=== PATIENT | female | born 1940 | race Caucasian/White ===

== ENCOUNTER → 2017-06-08 | Outpatient (CLI) | payer MEDICARE ==
--- NOTE | 2017-06-09 10:24 | MM ---
Reason for exam: screening (asymptomatic). Last mammogram was performed 16 years and 4 months ago. History: Patient is postmenopausal and is nulliparous. Family history of breast cancer in sister at age 83 and breast cancer in mother. Physical Findings: A clinical breast exam by your physician is recommended on an annual basis and results should be correlated with mammographic findings. MG 3D Screening Mammo W/Cad Bilateral XCCL view(s) were taken. Prior study comparison: February 01, 2001, bilateral screening mammogram. January 30, 2000, bilateral special view mammogram. January 14, 1999, left breast special view mammogram. Finding: There are typically benign dystrophic, round, linear calcifications. Previous mammotome biopsy in the left breast. There is no discrete abnormality. ASSESSMENT: Benign, BI-RAD 2 RECOMMENDATION: Routine screening mammogram of both breasts in 1 year.
== END ==
LOC: RADMAMWWP 13:22
PROVIDERS: ATTEND Surgery
DX: Z12.31 Encounter for screening mammogram for malignant neoplasm of breast (principal)
CPT/HCPCS: 77063; 77067

== ENCOUNTER → 2018-05-17 | Outpatient (CLI) | payer MEDICARE ==
--- NOTE | 2018-05-17 08:52 | US ---
EXAMINATION TYPE: US pelvic complete DATE OF EXAM: 05/17/2018 COMPARISON: NONE CLINICAL HISTORY: R10.31 RLQ ABD PAIN. Pain x 9 months. TECHNIQUE: Transabdominal (TA). Transabdominal sonographic images of the pelvis were acquired. Date of LMP: Postmenopausal EXAM MEASUREMENTS: Uterus: 5.6 x 2.6 x 2.1 cm Endometrial Stripe: difficult to visualize cm Right Ovary: Not visualized cm Left Ovary: Not visualized cm 1. Uterus: Anteverted wnl 2. Endometrium: wnl 3. Right Ovary: Obscured by overlying bowel gas 4. Left Ovary: Obscured by overlying bowel gas 5. Bilateral Adnexa: wnl 6. Posterior cul-de-sac: wnl No obvious pathology IMPRESSION: Unremarkable transabdominal sonographic appearance of the uterus however the endometrium is not clearly delineated. Ovaries are not visualized, possibly due to ovarian atrophy. If there is f urther clinical concern pelvic MRI could be performed.
--- NOTE | 2018-05-17 08:53 | US ---
EXAMINATION TYPE: US abdomen complete DATE OF EXAM: 05/17/2018 COMPARISON: NONE CLINICAL HISTORY: R10.31 RLQ ABD PAIN. EXAM MEASUREMENTS: Liver Length: 12.7 cm Gallbladder Wall: 0.2 cm CBD: 0.3 cm Spleen: 9.5 cm Right Kidney: 10.1 x 5.1 x 3.7 cm Left Kidney: 10.1 x 5.3 x 5.1 cm Pancreas: Partially Obscured by bowel gas Liver: Partially obscured by bowel gas. The visualized portions are homogeneous. Gallbladder: No cholelithiasis or biliary sludge Evidence for sonographic Bartlett's sign: no CBD: wnl Spleen: wnl Right Kidney: wnl Left Kidney: hypoechoic area medially = 2.0 x 1.8 x 1.3 . This is a well-defined posterior wall and may represent a renal sinus cyst. Upper IVC: wnl Abd Aorta: wnl Suboptimal visualization overall d/t large amounts of bowel gas. The liver is homogenous in its visualized portions. The intrahepatic portion of the IVC and proximal abdominal aorta are within normal limits. There is no evidence of cholelithiasis. Common bile duct is unremarkable. The visualized portions of the pancreas are homogenous. The spleen is unremarkabl e. Kidneys are symmetric and free of hydronephrosis. IMPRESSION: 1. No sonographic evidence of cholelithiasis or acute cholecystitis. 2. Probable left renal sinus cyst.
== END ==
LOC: RADUSWWP 07:33
PROVIDERS: ATTEND Internal Medicine
DX: R10.31 Right lower quadrant pain (principal)
CPT/HCPCS: 76700; 76856

== ENCOUNTER → 2018-09-09 | Outpatient (CLI) | payer MEDICARE ==
--- NOTE | 2018-09-09 12:30 | US ---
EXAMINATION TYPE: US kidneys/renal and bladder DATE OF EXAM: 09/09/2018 COMPARISON: US CLINICAL HISTORY: Rt Flank Pain. EXAM MEASUREMENTS: Right Kidney: 9.4 x 5.3 x 5.6 cm Left Kidney: 9.1 x 5.1 x 5.3 cm Right Kidney: No hydronephrosis or masses seen Left Kidney: No hydronephrosis or masses seen Bladder: wnl Bilateral Jets seen: No There is no evidence for hydronephrosis at this point in time. No nephrolithiasis is seen. No alannah s are identified. The urinary bladder is anechoic. Bilateral ureteral jets are seen. IMPRESSION: No distinct abnormality seen.
== END | disposition home or self-care (01) ==
LOC: RADUSWWP 11:47
PROVIDERS: ATTEND Internal Medicine
DX: R10.9 Unspecified abdominal pain (principal)
CPT/HCPCS: 76770

== ENCOUNTER → 2018-10-03 | Outpatient (CLI) | payer MEDICARE ==
--- NOTE | 2018-10-04 11:08 | MM ---
Reason for exam: screening (asymptomatic). Last mammogram was performed 1 year and 4 months ago. History: Patient is postmenopausal and is nulliparous. Family history of breast cancer in sister at age 83 and breast cancer in mother. Benign excisional biopsy of the left breast, 2012. Physical Findings: A clinical breast exam by your physician is recommended on an annual basis and results should be correlated with mammographic findings. MG 3D Screening Mammo W/Cad Bilateral CC and MLO view(s) were taken. XCCL view(s) were taken of the left breast. Prior study comparison: June 08, 2017, bilateral MG 3d screening mammo w/cad. May 14, 2016, mammogram. May 09, 2015, mammogram. The breast tissue is heterogeneously dense. This may lower the sensitivity of mammography. Previous mammotome biopsy in the left breast. Benign secretory and oil cyst calcifications. No significant changes when compared with prior studies. ASSESSMENT: Benign, BI-RAD 2 RECOMMENDATION: Routine screening mammogram of both breasts in 1 year. Manage on a clinical basis with regard to left breast shooting pains.
== END | disposition home or self-care (01) ==
LOC: RADMAMWWP 13:18
PROVIDERS: ATTEND Internal Medicine
DX: Z12.31 Encounter for screening mammogram for malignant neoplasm of breast (principal)
CPT/HCPCS: 77063; 77067

== ENCOUNTER → 2020-01-17 | Outpatient (CLI) | payer MEDICARE ==
--- NOTE | 2020-01-18 08:44 | MM ---
Reason for exam: screening (asymptomatic). Last mammogram was performed 1 year and 3 months ago. History: Patient is postmenopausal and is nulliparous. Family history of breast cancer in sister at age 83 and breast cancer in mother. Benign excisional biopsy of the left breast, 2012. Physical Findings: A clinical breast exam by your physician is recommended on an annual basis and results should be correlated with mammographic findings. MG 3D Screening Mammo W/Cad Bilateral CC and MLO view(s) were taken. Prior study comparison: October 03, 2018, bilateral MG 3d screening mammo w/cad. June 08, 2017, bilateral MG 3d screening mammo w/cad. The breast tissue is heterogeneously dense. This may lower the sensitivity of mammography. Benign appearing bilateral calcifications. Previous mammotome biopsy in the left breast. No significant changes when compared with prior studies. ASSESSMENT: Benign, BI-RAD 2 RECOMMENDATION: Routine screening mammogram of both breasts in 1 year.
== END | disposition home or self-care (01) ==
LOC: RADMAMWWP 10:56
PROVIDERS: ATTEND Internal Medicine
DX: Z12.31 Encounter for screening mammogram for malignant neoplasm of breast (principal)
CPT/HCPCS: 77063; 77067

== ENCOUNTER 2020-10-02 13:57 | Emergency (ER) | payer OTHER, MEDICARE ==
[2020-10-02 14:14] VITALS: TEMP 98
[2020-10-02 14:31] VITALS: PULSE 74; RESP 18
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
[2020-10-02 15:44] VITALS: BP 195/84
== END 2020-10-02 15:53 | disposition home or self-care (01) ==
LOC: EC 13:57
DX: M94.0 Chondrocostal junction syndrome [Tietze] (principal); V89.2XXA Person injured in unspecified motor-vehicle accident, traffic, initial encounter
CPT/HCPCS: 70450; 71250; 72125; 93005; 99284

== ENCOUNTER → 2021-01-14 | Outpatient (CLI) | payer MEDICARE ==
--- NOTE | 2021-01-14 10:16 | XR ---
EXAMINATION TYPE: XR chest 2V, XR ribs LT DATE OF EXAM: 01/14/2021 COMPARISON: NONE CT chest October 02, 2020 HISTORY: Left-sided chest pain particularly left lower rib pain TECHNIQUE: Frontal and lateral views of the chest are obtained. A frontal and oblique images left-si ded ribs. FINDINGS: There is no suspicious new focal air space opacity, pleural effusion, or pneumothorax seen . The cardiac silhouette size remains within normal limits. Underlying scoliosis is redemonstrated. Dedicated images of the left-sided ribs show no acute displaced fractures. Overlying soft tissue is u nremarkable. No suspicious focal expansile or destructive lesion identified. IMPRESSION: 1. No acute cardiopulmonary process. 2. No acute or subacute displaced left rib fracture.
== END | disposition home or self-care (01) ==
LOC: RADXRYALE 09:53
PROVIDERS: ATTEND Internal Medicine
DX: R05 Cough (principal); R07.81 Pleurodynia
CPT/HCPCS: 71046

== ENCOUNTER → 2021-01-17 | Outpatient (CLI) | payer MEDICARE ==
--- NOTE | 2021-01-21 08:07 | MM ---
Reason for exam: screening (asymptomatic). Last mammogram was performed 1 year ago. History: Patient is postmenopausal and is nulliparous. Family history of breast cancer in sister at age 83 and breast cancer in mother. Benign excisional biopsy of the left breast, 2012. Physical Findings: A clinical breast exam by your physician is recommended on an annual basis and results should be correlated with mammographic findings. MG 3D Screening Mammo W/Cad Bilateral CC and MLO view(s) were taken. XCCL view(s) were taken of the left breast. Prior study comparison: January 17, 2020, bilateral MG 3d screening mammo w/cad. October 03, 2018, bilateral MG 3d screening mammo w/cad. There are scattered fibroglandular densities. Previous mammotome biopsy in the left breast. Benign secretory and oil cyst calcifications. No significant changes when compared with prior studies. ASSESSMENT: Benign, BI-RAD 2 RECOMMENDATION: Routine screening mammogram of both breasts in 1 year.
== END | disposition home or self-care (01) ==
LOC: RADMAMWWP 15:39
PROVIDERS: ATTEND Internal Medicine
DX: Z12.31 Encounter for screening mammogram for malignant neoplasm of breast (principal); Z80.3 Family history of malignant neoplasm of breast
CPT/HCPCS: 77063; 77067

== ENCOUNTER 2021-05-09 14:24 | Emergency (ER) | payer MEDICARE ==
[2021-05-09 15:27] LABS: Anisocytosis Slight; Basophils % (A) 0 %; Eosinophils # (A) 0.1 k/uL (0-0.7); Eosinophils % (A) 1 %; HCT 39.4 % (34.0-46.0); HGB 13.5 gm/dL (11.4-16.0); Lymphocytes # (A) 0.9 k/uL (1.0-4.8); Lymphocytes % (A) 14 %; MCH 29.5 pg (25.0-35.0); MCHC 34.3 g/dL (31.0-37.0); Mean Platelet Volume 6.9; Monocytes # (A) 0.5 k/uL (0-1.0); Monocytes % (A) 8 %; Neutrophils # (A) 4.8 k/uL (1.3-7.7); Neutrophils % (A) 74 %; Platelet Count 330 k/uL (150-450); Poikilocytosis Slight; RBC 4.58 m/uL (3.80-5.40); RDW 16.3 % (11.5-15.5); WBC 6.4 k/uL (3.8-10.6)
[2021-05-09 15:38] LABS: INR 1.1 (<1.2); Prothrombin Time 11.1 sec (9.0-12.0)
[2021-05-09 15:39] LABS: ALT 37 U/L (4-34); AST 46 U/L (14-36); African American GFR (CKD) >90 (>60 ml/min/1.73 sqM); Albumin 3.9 g/dL (3.5-5.0); Alkaline Phosphatase 106 U/L (38-126); Anion Gap 9 mmol/L; Blood Urea Nitrogen 11 mg/dL (7-17); Calcium 9.3 mg/dL (8.4-10.2); Carbon Dioxide 27 mmol/L (22-30); Chloride 102 mmol/L (98-107); Glucose 96 mg/dL (74-99); Non-African American GFR(CKD) 85 (>60 ml/min/1.73 sqM); Potassium 4.5 mmol/L (3.5-5.1); Sodium 138 mmol/L (137-145); Total Bilirubin 0.7 mg/dL (0.2-1.3); Total Protein 7.3 g/dL (6.3-8.2)
[2021-05-09] MEDS ORDERED: predniSONE 50 MG TAB PO STA (18:16)
[2021-05-09] MEDS ORDERED: IPRATROPIUM-ALBUTEROL 3 ML NEB INHALATION STA (18:16)
--- NOTE | 2021-05-09 18:22 | ED ---
General Adult HPI - General Chief complaint: Upper Respiratory Infection Stated complaint: Covid+, SOB Time Seen by Provider: 05/09/21 18:17 Source: patient, family (son), RN notes reviewed, old records reviewed Mode of arrival: ambulatory Limitations: no limitations - History of Present Illness Initial comments: This is a well-appearing 81-year-old female, alert and oriented 4, that presents to the emergency room with complaints of persistent cough. Family states that she had a virtual visit with the physician and was advised to have a coronavirus swab done on Wednesday. She tested positive at that time and she received monoclonal antibodies on Wednesday at [facility]. She was having diarrhea a couple of days ago which has resolved. She has had a decrease in oral intake related to the cough. She denies any chest pain or abdominal pain. Son at bedside states that her is also being seen today for the same symptoms. She has no medical history, and no medicines on a daily basis. Oxygen saturation here is 96%. She has not been running a fever at home. Family states that her oxygen level at home is 88% on a store bought pulse oximeter. -: days(s) (13) Severity scale (1-10): 0 Consistency: constant Improves with: none Associated Symptoms: cough, other (diarrhea) - Related Data Home Medications Medication Instructions Recorded Confirmed guaiFENesin-Coden 100-10MG/5ML 5 ml PO Q6H PRN 05/09/21 05/09/21 [Robitussin AC] Previous Rx's Medication Instructions Recorded Albuterol Inhaler [Ventolin Hfa 2 puff INHALATION Q4H PRN #8 gm 05/09/21 Inhaler] Azithromycin [Zithromax Z-pack (6 1 pack PO DIRECTED 5 Days #6 tab 05/09/21 tabs)] predniSONE 50 mg PO DAILY #5 tab 05/09/21 Allergies Allergy/AdvReac Type Severity Reaction Status Date / Time No Known Allergies Allergy Verified 05/09/21 18:41 Review of Systems ROS Statement: Those systems with pertinent positive or pertinent negative responses have been documented in the HPI. ROS Other: All systems not noted in ROS Statement are negative. Past Medical History Past Medical History: No Reported History History of Any Multi-Drug Resistant Organisms: None Reported Past Surgical History: No Surgical Hx Reported Additional Past Surgical History / Comment(s): beryl to lt arm removed Past Psychological History: No Psychological Hx Reported Smoking Status: Never smoker Past Alcohol Use History: Occasional Past Drug Use History: None Reported General Exam Limitations: no limitations General appearance: alert, in no apparent distress Head exam: Present: atraumatic, normocephalic, normal inspection Eye exam: Present: normal appearance, EOMI ENT exam: Present: normal exam, normal oropharynx, mucous membranes moist Neck exam: Present: normal inspection, full ROM. Absent: tenderness, meningismus, lymphadenopathy Respiratory exam: Present: normal lung sounds bilaterally, rales (Right base), other (Persistent dry cough). Absent: wheezes, chest wall tenderness, accessory muscle use, decreased breath sounds Cardiovascular Exam: Present: regular rate, normal rhythm, normal heart sounds. Absent: systolic murmur, diastolic murmur, rubs, gallop, clicks, JVD GI/Abdominal exam: Present: soft, normal bowel sounds. Absent: distended, tenderness, guarding, rebound, rigid Extremities exam: Present: normal inspection, full ROM, normal capillary refill. Absent: tenderness, pedal edema, joint swelling, calf tenderness Back exam: Present: normal inspection, full ROM. Absent: tenderness, CVA tenderness (R), CVA tenderness (L), paraspinal tenderness, vertebral tenderness, rash noted Neurological exam: Present: alert, oriented X3 Psychiatric exam: Present: normal affect, normal mood Skin exam: Present: warm, dry, intact, normal color. Absent: rash, cyanosis, diaphoretic, petechiae, pallor Course Vital Signs 05/09/21 14:49 Temperature 98.9 F Pulse Rate 84 Respiratory 20 Rate Blood Pressure 126/78 O2 Sat by Pulse 96 Oximetry Medical Decision Making - Medical Decision Making Well-appearing 81-year-old female presents emergency room with persistent cough. Patient states that she tested positive for coronavirus on Wednesday and was given monoclonal antibody infusion on Wednesday of this week at [facility]. She states that she continues to have a cough. Her primary care doctor prescribed her Tylenol with codeine which has not been helping. She denies any chest pain, nausea, vomiting or fevers. There is no evidence of leukocytosis. Electrolytes are unremarkable. Troponin is negative at 0.012. There is no evidence of dehydration. Chest x-ray shows a left lower lobe mild interstitial infiltrate. She'll be prescribed prednisone, albuterol inhaler and Z-Shaheed directed to follow up with her primary care doctor and return to the emergency room with any new or worsening symptoms. Patient and family members are agreeable to this plan of care. Case discussed with Dr. Ku. - Lab Data Result diagrams: 05/09/21 15:24 05/09/21 15:24 Lab Results 05/09/21 05/09/21 05/09/21 Range/Units 15:24 15:24 15:24 WBC 6.4 (3.8-10.6) k/uL RBC 4.58 (3.80-5.40) m/uL Hgb 13.5 (11.4-16.0) gm/dL Hct 39.4 (34.0-46.0) % MCV 86.0 (80.0-100.0) fL MCH 29.5 (25.0-35.0) pg MCHC 34.3 (31.0-37.0) g/dL RDW 16.3 H (11.5-15.5) % Plt Count 330 (150-450) k/uL MPV 6.9 Neutrophils % 74 % Lymphocytes % 14 % Monocytes % 8 % Eosinophils % 1 % Basophils % 0 % Neutrophils # 4.8 (1.3-7.7) k/uL Lymphocytes # 0.9 L (1.0-4.8) k/uL Monocytes # 0.5 (0-1.0) k/uL Eosinophils # 0.1 (0-0.7) k/uL Basophils # 0.0 (0-0.2) k/uL Poikilocytosis Slight Anisocytosis Slight PT 11.1 (9.0-12.0) sec INR 1.1 (<1.2) APTT 26.0 (22.0-30.0) sec Sodium 138 (137-145) mmol/L Potassium 4.5 (3.5-5.1) mmol/L Chloride 102 (98-107) mmol/L Carbon Dioxide 27 (22-30) mmol/L Anion Gap 9 mmol/L BUN 11 (7-17) mg/dL Creatinine 0.62 (0.52-1.04) mg/dL Est GFR (CKD-EPI)AfAm >90 (>60 ml/min/1.73 sqM) Est GFR (CKD-EPI)NonAf 85 (>60 ml/min/1.73 sqM) Glucose 96 (74-99) mg/dL Calcium 9.3 (8.4-10.2) mg/dL Total Bilirubin 0.7 (0.2-1.3) mg/dL AST 46 H (14-36) U/L ALT 37 H (4-34) U/L Alkaline Phosphatase 106 (38-126) U/L Troponin I (0.000-0.034) ng/mL Total Protein 7.3 (6.3-8.2) g/dL Albumin 3.9 (3.5-5.0) g/dL 05/09/21 Range/Units 15:24 WBC (3.8-10.6) k/uL RBC (3.80-5.40) m/uL Hgb (11.4-16.0) gm/dL Hct (34.0-46.0) % MCV (80.0-100.0) fL MCH (25.0-35.0) pg MCHC (31.0-37.0) g/dL RDW (11.5-15.5) % Plt Count (150-450) k/uL MPV Neutrophils % % Lymphocytes % % Monocytes % % Eosinophils % % Basophils % % Neutrophils # (1.3-7.7) k/uL Lymphocytes # (1.0-4.8) k/uL Monocytes # (0-1.0) k/uL Eosinophils # (0-0.7) k/uL Basophils # (0-0.2) k/uL Poikilocytosis Anisocytosis PT (9.0-12.0) sec INR (<1.2) APTT (22.0-30.0) sec Sodium (137-145) mmol/L Potassium (3.5-5.1) mmol/L Chloride (98-107) mmol/L Carbon Dioxide (22-30) mmol/L Anion Gap mmol/L BUN (7-17) mg/dL Creatinine (0.52-1.04) mg/dL Est GFR (CKD-EPI)AfAm (>60 ml/min/1.73 sqM) Est GFR (CKD-EPI)NonAf (>60 ml/min/1.73 sqM) Glucose (74-99) mg/dL Calcium (8.4-10.2) mg/dL Total Bilirubin (0.2-1.3) mg/dL AST (14-36) U/L ALT (4-34) U/L Alkaline Phosphatase (38-126) U/L Troponin I <0.012 (0.000-0.034) ng/mL Total Protein (6.3-8.2) g/dL Albumin (3.5-5.0) g/dL Disposition Clinical Impression: Pneumonia Disposition: HOME SELF-CARE Condition: Good Instructions (If sedation given, give patient instructions): Viral Pneumonia (ED) Additional Instructions: Take antibiotics once a day. Take steroid once a day and do not take Motrin while taking the steroid. Use the inhaler for any difficulty in breathing, 2 puffs every 4 hours as needed. Take vitamin C, vitamin D and Zinc to improve your immune health. Return to the emergency room with any new or worsening symptoms. Prescriptions: predniSONE 50 mg PO DAILY #5 tab Albuterol Inhaler [Ventolin Hfa Inhaler] 2 puff INHALATION Q4H PRN #8 gm PRN Reason: Dyspnea Azithromycin [Zithromax Z-pack (6 tabs)] 1 pack PO DIRECTED 5 Days #6 tab Is patient prescribed a controlled substance at d/c from ED?: No Referrals: Citlaly Lara MD [Primary Care Provider] - 1-2 days Time of Disposition: 19:06
--- NOTE | 2021-05-09 18:41 | XR ---
EXAMINATION TYPE: XR chest 2V DATE OF EXAM: 05/09/2021 COMPARISON: NONE HISTORY: Cough TECHNIQUE: 2 views FINDINGS: Heart is normal. Lungs are clear of consolidation. There are no hilar masses. Costophrenic angles are clear. There is some mild interstitial infiltrate left lower lobe. Bony thorax is intact. IMPRESSION: There is some mild interstitial infiltrate left lower lobe which is new compared to old e xam. Normal heart.
[2021-05-09] MEDS ORDERED: ALBUTEROL HFA INHALER INHALATION STA (18:44)
[2021-05-09] MEDS ORDERED: AZITHROMYCIN 250 MG TAB PO STA (18:49)
[2021-05-09 19:33] VITALS: RESP 18
[2021-05-09 20:51] VITALS: BP 134/78; PULSE 74; TEMP 98.7
== END 2021-05-09 21:00 | disposition home or self-care (01) ==
LOC: EC 14:24
DX: U07.1 COVID-19 (principal); J12.82 Pneumonia due to coronavirus disease 2019
CPT/HCPCS: 36415; 94640; 93005; 80053; 84484; 85025; 85610; 85730; 71046; 99285; J7512

== ENCOUNTER → 2023-01-11 | Outpatient (CLI) | payer MEDICARE ==
--- NOTE | 2023-01-11 11:25 | US ---
EXAMINATION TYPE: US venous doppler duplex LE RT DATE OF EXAM: 01/11/2023 10:41 AM COMPARISON: NONE CLINICAL INDICATION: Female, 83 years old with history of LOCALIZED SWELLING RLE; I25.10; Discomfort, ache right leg for 2 years. edema right lower leg SIDE PERFORMED: right TECHNIQUE: The lower extremity deep venous system is examined utilizing real time linear array sonog jadon with graded compression, doppler sonography and color-flow sonography. VESSELS IMAGED: Common Femoral Vein Deep Femoral Vein Greater Saphenous Vein * Femoral Vein Popliteal Vein Small Saphenous Vein * Proximal Calf Veins (* superficial vessels) Grayscale, color doppler, spectral doppler imaging performed of the deep veins of the right lower ext remity. There is normal flow, compressibility, vascular waveforms. Right Leg: no evidence of DVT IMPRESSION: No deep venous thrombosis of the right lower extremity.
== END | disposition home or self-care (01) ==
LOC: RADUSWWP 10:09
PROVIDERS: ATTEND Family Medicine
DX: R22.41 Localized swelling, mass and lump, right lower limb (principal)

== ENCOUNTER → 2023-03-17 | Outpatient (CLI) | payer MEDICARE ==
--- NOTE | 2023-03-18 12:41 | MM ---
Reason for Exam: Screening (asymptomatic). Last mammogram was performed 1 year(s) and 2 month(s) ago. Patient History: Menarche at age 15. Patient has no children. Postmenopausal. 2012, Benign Excisional Biopsy on the left side. Sister had breast cancer, age 83. Mother had breast cancer. Risk Values: Marichuy 5 year model risk: 5.5%. NCI Lifetime model risk: 6.8%. Prior Study Comparison: 01/17/2020 Bilateral Screening Mammogram, [facility]. 01/17/2021 Bilateral Screening Mammogram, [facility]. 01/20/2022 Bilateral MG 3D screening mammo w/cad, [facility]. Tissue Density: The breast tissue is heterogeneously dense. This may lower the sensitivity of mammography. Findings: Analyzed By CAD. There is no suspicious group of microcalcifications or new suspicious mass in either breast. Overall Assessment: Benign, BI-RAD 2 Management: Screening Mammogram of both breasts in 1 year. . Patient should continue monthly self-breast exams. A clinical breast exam by your physician is recommended on an annual basis. This exam should not preclude additional follow-up of suspicious palpable abnormalities. Note on Marichuy scores and lifetime risk: 1. A Marichuy score greater than 3% is considered moderate risk. If this is the case, consider specialist referral to assess eligibility for a risk reducing agent. 2. If overall lifetime risk for the development of breast cancer is 20% or higher, the patient may qualify for future screening with alternating mammogram and breast MRI. Electronically signed and approved by: Miguel Joy M.D. Radiologis
== END | disposition home or self-care (01) ==
LOC: RADMAMWWP 14:48
PROVIDERS: ATTEND Family Medicine
DX: Z12.31 Encounter for screening mammogram for malignant neoplasm of breast (principal); Z78.0 Asymptomatic menopausal state; Z80.3 Family history of malignant neoplasm of breast
CPT/HCPCS: 77063; 77067

== ENCOUNTER 2023-05-18 11:42 | Inpatient (IN) | payer MEDICARE ==
[2023-05-18] MEDS ORDERED: SODIUM CHLORIDE 0.9% 1,000 ML IV STA (12:20)
--- NOTE | 2023-05-18 12:51 | ED ---
Recheck HPI - General Chief Complaint: Recheck/Abnormal Lab/Rx Stated Complaint: JASON Time Seen by Provider: 05/18/23 12:10 Source: patient, RN notes reviewed, old records reviewed Mode of arrival: ambulatory Limitations: no limitations - History of Present Illness Initial Comments: This is a 83-year-old female to the emergency department for evaluation of abnormal outpatient lab testing. Patient was found of low hemoglobin her primary care and sent to ER for evaluation of low hemoglobin. Recently had significant stress on her life with passing of her . Patient presents to the ER for severe weakness MD Complaint: abnormal lab -: days(s) Returns Today for: Called Because of Abnormal Lab/Test, persistent/worsening pain related to initial visit Symptoms Since Prior Visit: no new symptoms Associated Symptoms: shortness of breath, malaise, nausea - Related Data Previous Rx's Medication Instructions Recorded Pantoprazole Sodium [Protonix] 40 mg PO BID 30 Days #60 tab 05/24/23 guaiFENesin [Mucinex] 600 mg PO Q12HR 7 Days #14 tab 05/24/23 Allergies Allergy/AdvReac Type Severity Reaction Status Date / Time No Known Allergies Allergy Verified 05/28/23 18:29 Review of Systems ROS Statement: Those systems with pertinent positive or pertinent negative responses have been documented in the HPI. ROS Other: All systems not noted in ROS Statement are negative. Past Medical History Past Medical History: No Reported History History of Any Multi-Drug Resistant Organisms: None Reported Past Surgical History: No Surgical Hx Reported Additional Past Surgical History / Comment(s): beryl to lt arm removed Past Psychological History: No Psychological Hx Reported Smoking Status: Never smoker Past Alcohol Use History: Occasional Past Drug Use History: None Reported - Past Family History Mother Family Medical History: Rheumatoid Arthritis (RA) Father Family Medical History: COPD General Exam Limitations: altered mental status General appearance: alert, in no apparent distress, anxious, obtunded, in distress Head exam: Present: atraumatic, normocephalic, normal inspection Eye exam: Present: normal appearance, PERRL, EOMI. Absent: scleral icterus, conjunctival injection, periorbital swelling ENT exam: Present: normal exam, mucous membranes moist Neck exam: Present: normal inspection. Absent: tenderness, meningismus, lymphadenopathy Respiratory exam: Present: normal lung sounds bilaterally. Absent: respiratory distress, wheezes, rales, rhonchi, stridor Cardiovascular Exam: Present: regular rate, normal rhythm, normal heart sounds. Absent: systolic murmur, diastolic murmur, rubs, gallop, clicks GI/Abdominal exam: Present: soft, normal bowel sounds. Absent: distended, tenderness, guarding, rebound, rigid Extremities exam: Present: normal inspection, full ROM, normal capillary refill. Absent: tenderness, pedal edema, joint swelling, calf tenderness Back exam: Present: normal inspection Neurological exam: Present: alert, oriented X3, CN II-XII intact Psychiatric exam: Present: normal affect, normal mood Skin exam: Present: warm, dry, intact, normal color. Absent: rash Course Vital Signs 05/18/23 05/18/23 05/18/23 11:49 14:14 14:37 Temperature 98.1 F 98.1 F Pulse Rate 95 87 79 Respiratory 20 18 18 Rate Blood Pressure 139/70 153/65 125/54 O2 Sat by Pulse 99 96 96 Oximetry 05/18/23 05/18/23 05/18/23 14:49 15:09 16:32 Temperature 98.1 F 98.6 F Pulse Rate 80 79 77 Respiratory 18 18 18 Rate Blood Pressure 115/59 121/56 128/62 O2 Sat by Pulse 96 96 97 Oximetry 05/18/23 05/18/23 05/18/23 16:35 16:46 16:49 Temperature 98.4 F 98.3 F 98.4 F Pulse Rate 76 76 75 Respiratory 18 18 18 Rate Blood Pressure 126/63 122/61 128/62 O2 Sat by Pulse 96 97 97 Oximetry 05/18/23 17:20 Temperature 98.4 F Pulse Rate 78 Respiratory 18 Rate Blood Pressure 140/70 O2 Sat by Pulse 97 Oximetry - Reevaluation(s) Reevaluation #1: 05/18/23 17:23 Medical record is reviewed Reevaluation #2: 05/18/23 17:23 Patient symptoms are unchanged Reevaluation #3: 05/18/23 17:23 Patient informed results questions answered Reevaluation #4: 05/18/23 17:23 Was pt. sent in by a medical professional or institution (, PA, [employer], urgent care, hospital, or senior living...) When possible be specific @ -no Did you speak to anyone other than the patient for history (EMS, parent, family, police, friend...)? What history was obtained from this source @ -no Did you review nursing and triage notes (agree or disagree)? Why? @ -agree Are old charts reviewed (outside hosp., previous admission, EMS record, old EKG, old radiological studies, urgent care reports/EKG's, senior living records)? Report findings @ -yes Differential Diagnosis (chest pain, altered mental status, abdominal pain women, abdominal pain men, vaginal bleeding, weakness, fever, dyspnea, syncope, headache, dizziness, GI bleed, back pain, seizure, CVA, palpatations, mental health, musculoskeletal)? @ -prior EKG interpreted by me (3pts min.). @ -yes X-rays interpreted by me (1pt min.). @ -no CT interpreted by me (1pt min.). @ -no U/S interpreted by me (1pt. min.). @ -no What testing was considered but not performed or refused? (CT, X-rays, U/S, l abs)? Why? @ -none What meds were considered but not given or refused? Why? @ -none Did you discuss the management of the patient with other professionals (professionals i.e. , PA, [employer], lab, RT, psych nurse, social media marketing specialist, model set artist, teacher, enforcement officer, clinical case manager)? Give summary @ -no Was smoking cessation discussed for >3mins.? @ -no Was critical care preformed (if so, how long)? @ -yes31 Were there social determinants of health that impacted care today? How? (Homelessness, low income, unemployed, alcoholism, drug addiction, transportation, low edu. Level, literacy, decrease access to med. care, [facility], rehab)? @ -none Was there de-escalation of care discussed even if they declined (Discuss DNR or withdrawal of care, Hospice)? DNR status @ -no What co-morbidities impacted this encounter? (DM, HTN, Smoking, COPD, CAD, Cancer, CVA, ARF, Chemo, Hep., AIDS, mental health diagnosis, sleep apnea, morbid obesity)? @ -none Was patient admitted / discharged? Hospital course, mention meds given and route, prescriptions, significant lab abnormalities, going to OR and other pertinent info. @ - 83 female to the emergency department for evaluation stating significant weakness found to have low outpatient hemoglobin and has low hemoglobin here in the ER, patient will be admitted and transfused for GI evaluation regarding GI bleed with significant anemia Admitted Undiagnosed new problem with uncertain prognosis? @ -no Drug Therapy requiring intensive monitoring for toxicity (Heparin, Nitro, Insulin, Cardizem)? @ -no Were any procedures done? @ -no Diagnosis/symptom? @ -GI bleed with anemia Acute, or Chronic, or Acute on Chronic? @ -Acute Uncomplicated (without systemic symptoms) or Complicated (systemic symptoms)? @ -Complicated Side effects of treatment? @ -no Exacerbation, Progression, or Severe Exacerbation? @ -exacerbation Poses a threat to life or bodily function? How? (Chest pain, [place], [place], pneumonia, PE, COPD, DKA, ARF, appy, cholecystitis, CVA, Diverticulitis, Homicidal, Suicidal, threat to staff... and all critical care pts) @ -yes with significant anemia, GI bleed, anticoagulation coagulopathy - Consultations Consultation #1: Spoke with in the physicians who agree to admit this patient Medical Decision Making - Medical Decision Making 83 female to the emergency department for evaluation stating significant weakness found to have low outpatient hemoglobin and has low hemoglobin here in the ER, patient will be admitted and transfused for GI evaluation regarding GI bleed with significant anemia - Lab Data Result diagrams: 05/24/23 08:38 05/22/23 08:59 Lab Results 05/18/23 05/18/23 05/18/23 Range/Units 12:47 12:47 12:47 WBC 10.9 H (3.8-10.6) k/uL RBC 3.14 L (3.80-5.40) m/uL Hgb 5.9 L* (11.4-16.0) gm/dL Hct 19.7 L* (34.0-46.0) % MCV 62.7 L (80.0-100.0) fL MCH 18.6 L (25.0-35.0) pg MCHC 29.7 L (31.0-37.0) g/dL RDW 18.2 H (11.5-15.5) % Plt Count 275 (150-450) k/uL MPV 8.0 Neutrophils % 82 % Lymphocytes % 6 % Monocytes % 9 % Eosinophils % 1 % Basophils % 1 % Neutrophils # 8.9 H (1.3-7.7) k/uL Lymphocytes # 0.7 L (1.0-4.8) k/uL Monocytes # 0.9 (0-1.0) k/uL Eosinophils # 0.1 (0-0.7) k/uL Basophils # 0.1 (0-0.2) k/uL Hypochromasia Marked Poikilocytosis Moderate Anisocytosis Slight Microcytosis Marked PT 10.8 (10.0-12.5) sec INR 1.0 (<1.2) APTT 23.6 (22.0-30.0) sec Sodium 137 (137-145) mmol/L Potassium 4.3 (3.5-5.1) mmol/L Chloride 102 (98-107) mmol/L Carbon Dioxide 24 (22-30) mmol/L Anion Gap 11 mmol/L BUN 18 H (7-17) mg/dL Creatinine 0.72 (0.52-1.04) mg/dL Est GFR (CKD-EPI)AfAm >90 (>60 ml/min/1.73 sqM) Est GFR (CKD-EPI)NonAf 78 (>60 ml/min/1.73 sqM) Glucose 99 (74-99) mg/dL Calcium 9.1 (8.4-10.2) mg/dL Phosphorus 3.1 (2.5-4.5) mg/dL Magnesium 2.3 (1.6-2.3) mg/dL Total Bilirubin 0.5 (0.2-1.3) mg/dL AST 21 (14-36) U/L ALT 16 (4-34) U/L Alkaline Phosphatase 114 (38-126) U/L Troponin I (0.000-0.034) ng/mL Total Protein 6.8 (6.3-8.2) g/dL Albumin 3.6 (3.5-5.0) g/dL Blood Type Blood Type Confirm Blood Type Recheck Bld Type Recheck Status Antibody Screen Crossmatch Spec Expiration Date 05/18/23 05/18/23 05/18/23 Range/Units 12:47 12:47 13:08 WBC (3.8-10.6) k/uL RBC (3.80-5.40) m/uL Hgb (11.4-16.0) gm/dL Hct (34.0-46.0) % MCV (80.0-100.0) fL MCH (25.0-35.0) pg MCHC (31.0-37.0) g/dL RDW (11.5-15.5) % Plt Count (150-450) k/uL MPV Neutrophils % % Lymphocytes % % Monocytes % % Eosinophils % % Basophils % % Neutrophils # (1.3-7.7) k/uL Lymphocytes # (1.0-4.8) k/uL Monocytes # (0-1.0) k/uL Eosinophils # (0-0.7) k/uL Basophils # (0-0.2) k/uL Hypochromasia Poikilocytosis Anisocytosis Microcytosis PT (10.0-12.5) sec INR (<1.2) APTT (22.0-30.0) sec Sodium (137-145) mmol/L Potassium (3.5-5.1) mmol/L Chloride (98-107) mmol/L Carbon Dioxide (22-30) mmol/L Anion Gap mmol/L BUN (7-17) mg/dL Creatinine (0.52-1.04) mg/dL Est GFR (CKD-EPI)AfAm (>60 ml/min/1.73 sqM) Est GFR (CKD-EPI)NonAf (>60 ml/min/1.73 sqM) Glucose (74-99) mg/dL Calcium (8.4-10.2) mg/dL Phosphorus (2.5-4.5) mg/dL Magnesium (1.6-2.3) mg/dL Total Bilirubin (0.2-1.3) mg/dL AST (14-36) U/L ALT (4-34) U/L Alkaline Phosphatase (38-126) U/L Troponin I <0.012 (0.000-0.034) ng/mL Total Protein (6.3-8.2) g/dL Albumin (3.5-5.0) g/dL Blood Type A Positive Blood Type Confirm A Positive Blood Type Recheck No Previous Record Bld Type Recheck Status CABO Indicated Antibody Screen NEGATIVE Crossmatch See Detail Spec Expiration Date 05/21/2023 8058 - EKG Data -: EKG Interpreted by Me (EKG is sinus 89 GA 164 QRS 76 QTC 384) Critical Care Time Critical Care Time: Yes Total Critical Care Time: 31 Disposition Clinical Impression: Anemia, Weakness, GI bleed, Debility, Dehydration Disposition: ADMITTED IP TO THIS HOSP Condition: Fair Is patient prescribed a controlled substance at d/c from ED?: No Time of Disposition: 14:00
[2023-05-18 13:28] LABS: Anisocytosis Slight; Basophils # (A) 0.1 k/uL (0-0.2); Basophils % (A) 1 %; Eosinophils # (A) 0.1 k/uL (0-0.7); Eosinophils % (A) 1 %; Hypochromasia Marked; Lymphocytes # (A) 0.7 k/uL (1.0-4.8); Lymphocytes % (A) 6 %; MCH 18.6 pg (25.0-35.0); MCHC 29.7 g/dL (31.0-37.0); MCV 62.7 fL (80.0-100.0); Microcytosis Marked; Monocytes # (A) 0.9 k/uL (0-1.0); Monocytes % (A) 9 %; Neutrophils # (A) 8.9 k/uL (1.3-7.7); Neutrophils % (A) 82 %; Platelet Count 275 k/uL (150-450); Poikilocytosis Moderate; RBC 3.14 m/uL (3.80-5.40); RDW 18.2 % (11.5-15.5); WBC 10.9 k/uL (3.8-10.6)
[2023-05-18 13:31] LABS: ALT 16 U/L (4-34); AST 21 U/L (14-36); African American GFR (CKD) >90 (>60 ml/min/1.73 sqM); Albumin 3.6 g/dL (3.5-5.0); Alkaline Phosphatase 114 U/L (38-126); Anion Gap 11 mmol/L; Blood Urea Nitrogen 18 mg/dL (7-17); Calcium 9.1 mg/dL (8.4-10.2); Carbon Dioxide 24 mmol/L (22-30); Chloride 102 mmol/L (98-107); Glucose 99 mg/dL (74-99); Magnesium 2.3 mg/dL (1.6-2.3); Non-African American GFR(CKD) 78 (>60 ml/min/1.73 sqM); Phosphorus 3.1 mg/dL (2.5-4.5); Potassium 4.3 mmol/L (3.5-5.1); Sodium 137 mmol/L (137-145); Total Bilirubin 0.5 mg/dL (0.2-1.3); Total Protein 6.8 g/dL (6.3-8.2)
[2023-05-18 13:33] LABS: Partial Thromboplastin Time 23.6 sec (22.0-30.0); Prothrombin Time 10.8 sec (10.0-12.5)
[2023-05-18 13:47] LABS: HCT 19.7 % (34.0-46.0); HGB 5.9 gm/dL (11.4-16.0)
[2023-05-18] MEDS ORDERED: ONDANSETRON 4 MG/2 ML VIAL IVP PRN (14:10)
[2023-05-18] MEDS ORDERED: NALOXONE 0.4 MG/ML 1 ML VIAL IV PRN (14:10)
[2023-05-18] MEDS ORDERED: MORPHINE SULFATE 4 MG/ML SYRINGE IV PRN (14:10)
[2023-05-18] MEDS: SODIUM CHLORIDE 0.9% 1,000 ML IV SCH (20:28)
[2023-05-19 01:37] LABS: Anisocytosis Moderate; HCT 27.7 % (34.0-46.0); Hypochromasia Marked; MCH 22.8 pg (25.0-35.0); MCHC 31.6 g/dL (31.0-37.0); Microcytosis Marked; Platelet Count 226 k/uL (150-450); Poikilocytosis Marked; RBC 3.82 m/uL (3.80-5.40); RDW 20.5 % (11.5-15.5); WBC 10.9 k/uL (3.8-10.6)
[2023-05-19 02:03] LABS: HGB 8.7 gm/dL (11.4-16.0); MCV 72.4 fL (80.0-100.0)
[2023-05-19 04:28] LABS: Eosinophils # (M) 0.44 k/uL (0-0.7); Lymphocytes # (M) 0.87 k/uL (1.0-4.8); Monocytes # (M) 0.87 k/uL (0-1.0); Neutrophils # (M) 8.72 k/uL (1.3-7.7); Neutrophils % (M) 80 %; Nucleated Red Blood Cells 0 /100 WBC (0-0); Total Cells Counted 100
[2023-05-19] MEDS: SODIUM CHLORIDE 0.9% 1,000 ML IV SCH ×2 (05:21→15:41)
--- NOTE | 2023-05-19 08:41 | P.HPIM ---
History of Present Illness H&P Date: 05/19/23 Chief Complaint: Shortness of breath The patient was admitted for shortness of breath found to have hemoglobin of 5 and requiring transfusion. GI bleed is admitted diagnosis. Unfortunately the patient has not being able to take care of herself properly because of her yanely nd's recent demise/. The patient has no previous history of ulcer or diverticulitis. No fever. Review of Systems Constitutional: Denies chills, Denies fever Ears, nose, mouth and throat: Denies headache, Denies sore throat Cardiovascular: Reports as per HPI Gastrointestinal: Reports as per HPI Genitourinary: Denies dysuria, Denies hematuria Past Medical History Past Medical History: No Reported History History of Any Multi-Drug Resistant Organisms: None Reported Past Surgical History: No Surgical Hx Reported Additional Past Surgical History / Comment(s): beryl to lt arm removed Past Anesthesia/Blood Transfusion Reactions: No Reported Reaction Past Psychological History: No Psychological Hx Reported Smoking Status: Never smoker Past Alcohol Use History: Occasional Past Drug Use History: None Reported - Past Family History Mother Family Medical History: Rheumatoid Arthritis (RA) Father Family Medical History: COPD Medications and Allergies Home Medications Medication Instructions Recorded Confirmed Type No Known Home Medications 05/18/23 05/18/23 History Allergies Allergy/AdvReac Type Severity Reaction Status Date / Time No Known Allergies Allergy Verified 05/18/23 13:26 Physical Exam Vitals: Vital Signs Temp Pulse Pulse Resp BP BP Pulse Ox 05/19/23 08:33 81 16 92/51 93 L 05/19/23 04:00 92 17 127/69 97 05/18/23 23:43 97.9 F 78 16 129/67 97 05/18/23 19:49 98.1 F 88 18 142/83 97 05/18/23 19:06 75 18 126/69 98 05/18/23 18:26 76 18 138/72 98 05/18/23 17:20 98.4 F 78 18 140/70 97 05/18/23 16:49 98.4 F 75 18 128/62 97 05/18/23 16:46 98.3 F 76 18 122/61 97 05/18/23 16:35 98.4 F 76 18 126/63 96 05/18/23 16:32 77 18 128/62 97 05/18/23 15:09 98.6 F 79 18 121/56 96 05/18/23 14:49 98.1 F 80 18 115/59 96 05/18/23 14:37 98.1 F 79 18 125/54 96 05/18/23 14:14 87 18 153/65 96 05/18/23 11:49 98.1 F 95 20 139/70 99 Intake and Output 05/18/23 05/19/23 05/19/23 22:59 06:59 14:59 Intake Total 620 Balance 620 Intake: Oral 0 Blood Product 620 Rc As-1 Unit 310 [id number] Rc As-1 Unit 310 [id number] Other: Voiding Method Toilet Toilet # Voids 1 Weight 68.039 kg - Constitutional General appearance: cooperative, no acute distress - EENT Eyes: EOMI - Neck Neck: no lymphadenopathy - Respiratory Respiratory: bilateral: diminished - Cardiovascular Rhythm: irregularly irregular Heart sounds: normal: S1, S2 Abnormal Heart Sounds: no S3 Gallop - Gastrointestinal General gastrointestinal: soft, no tenderness - Psychiatric Psychiatric: A&O x's 3 Results CBC & Chem 7: 05/19/23 00:26 05/18/23 12:47 Labs: Abnormal Lab Results - Last 24 Hours (Table) 05/18/23 05/18/23 05/18/23 Range/Units 12:47 12:47 12:47 WBC 10.9 H (3.8-10.6) k/uL RBC 3.14 L (3.80-5.40) m/uL Hgb 5.9 L* (11.4-16.0) gm/dL Hct 19.7 L* (34.0-46.0) % MCV 62.7 L (80.0-100.0) fL MCH 18.6 L (25.0-35.0) pg MCHC 29.7 L (31.0-37.0) g/dL RDW 18.2 H (11.5-15.5) % Neutrophils # 8.9 H (1.3-7.7) k/uL Neutrophils # (Manual) (1.3-7.7) k/uL Lymphocytes # 0.7 L (1.0-4.8) k/uL Lymphocytes # (Manual) (1.0-4.8) k/uL BUN 18 H (7-17) mg/dL Crossmatch See Detail 05/19/23 Range/Units 00:26 WBC 10.9 H (3.8-10.6) k/uL RBC (3.80-5.40) m/uL Hgb 8.7 L D (11.4-16.0) gm/dL Hct 27.7 L (34.0-46.0) % MCV 72.4 L D (80.0-100.0) fL MCH 22.8 L (25.0-35.0) pg MCHC (31.0-37.0) g/dL RDW 20.5 H (11.5-15.5) % Neutrophils # (1.3-7.7) k/uL Neutrophils # (Manual) 8.72 H (1.3-7.7) k/uL Lymphocytes # (1.0-4.8) k/uL Lymphocytes # (Manual) 0.87 L (1.0-4.8) k/uL BUN (7-17) mg/dL Crossmatch Thrombosis Risk Factor Assmnt - Choose All That Apply Any of the Below Risk Factors Present?: Yes Each Factor Represents 1 point: Obesity (BMI >25) Other Risk Factors: Yes Each Risk Factor Represents 3 Points: Age 75 years or older Thrombosis Risk Factor Assessment Total Risk Factor Score: 4 Thrombosis Risk Factor Assessment Level: Moderate Risk Assessment and Plan (1) Anemia Current Visit: Yes Status: Acute Code(s): D64.9 - ANEMIA, UNSPECIFIED SNOMED Code(s): 621522391 (2) GI bleed Current Visit: Yes Status: Acute Code(s): K92.2 - GASTROINTESTINAL HEMORRHAGE, UNSPECIFIED SNOMED Code(s): 20820788 (3) Weakness Current Visit: Yes Status: Acute Code(s): R53.1 - WEAKNESS SNOMED Code(s): 06489631 Plan: Await GI workup with probable colonoscopy. Check serial CBCs. Elevated d-dimer in my office. Repeat here question need for computed tomography scan of the chest. No lower extremity pain otherwise.
[2023-05-19 08:48] LABS: Anisocytosis Moderate; Basophils % (A) 1 %; Eosinophils # (A) 0.2 k/uL (0-0.7); Eosinophils % (A) 3 %; HCT 26.9 % (34.0-46.0); HGB 8.5 gm/dL (11.4-16.0); Hypochromasia Marked; Lymphocytes # (A) 0.8 k/uL (1.0-4.8); Lymphocytes % (A) 9 %; MCH 22.4 pg (25.0-35.0); MCHC 31.6 g/dL (31.0-37.0); Mean Platelet Volume 7.2; Microcytosis Marked; Monocytes # (A) 0.8 k/uL (0-1.0); Monocytes % (A) 8 %; Neutrophils # (A) 7.4 k/uL (1.3-7.7); Neutrophils % (A) 77 %; Platelet Count 216 k/uL (150-450); Poikilocytosis Marked; RBC 3.79 m/uL (3.80-5.40); RDW 20.6 % (11.5-15.5); WBC 9.6 k/uL (3.8-10.6)
[2023-05-19 09:37] LABS: ALT 15 U/L (4-34); AST 19 U/L (14-36); African American GFR (CKD) >90 (>60 ml/min/1.73 sqM); Alkaline Phosphatase 104 U/L (38-126); Anion Gap 9 mmol/L; Blood Urea Nitrogen 12 mg/dL (7-17); Calcium 8.8 mg/dL (8.4-10.2); Carbon Dioxide 21 mmol/L (22-30); Chloride 106 mmol/L (98-107); Glucose 97 mg/dL (74-99); Magnesium 2.1 mg/dL (1.6-2.3); Non-African American GFR(CKD) 81 (>60 ml/min/1.73 sqM); Phosphorus 3.6 mg/dL (2.5-4.5); Potassium 4.4 mmol/L (3.5-5.1); Sodium 136 mmol/L (137-145); Total Bilirubin 0.8 mg/dL (0.2-1.3); Total Protein 5.9 g/dL (6.3-8.2)
--- NOTE | 2023-05-19 13:29 | P.CONS ---
History of Present Illness - Reason for Consult Consult date: 05/19/23 [facility] Requesting physician: Rui Nguyen - Chief Complaint SOB and low hemoglobin - History of Present Illness This is a pleasant 83-year-old female who was sent in to the emergency department by her PCP for abnormal outpatient labs. Patient had seen her use be recently for shortness of breath and was not noted to have low hemoglobin and was sent in for further evaluation. On admission she had a hemoglobin of 5.9 requiring 2 units of blood. Repeat hemoglobin today up to 8.7. Patient denies any blood in her stool, no abdominal pain, nausea or vomiting. States she is not on any anticoagulation and only takes Aleve occasionally. Last colonoscopy was several years ago. Apparently patient lost her recently and has not been caring for herself. She has been complaining of increased weakness and fatigue. Admitting labs WBC 10.9 hemoglobin 5.9 hematocrit 19 platelet count 275,000 INR 1.0 sodium 137 potassium 4.3 BUN 18 creatinine 0.7 total bilirubin 0.5 AST 21 ALT 16 alkaline phosphatase 114 Today's labs WBC 9.6 hemoglobin 8.5 hematocrit 26 platelet count 216,000 d-dimer 3.07 sodium 136 potassium 4.4 BUN 12 creatinine 0.6 Review of Systems REVIEW OF SYSTEMS: CARDIOPULMONARY: No chest pain. Shortness of breath. Gastrointestinal: No abdominal pain. No nausea or vomiting. No hematemesis, coffee-ground emesis. No rectal bleeding, or melena. GENITOURINARY: No dysuria or hematuria. MUSCULOSKELETAL: Reports normal range of motion. SKIN: No rashes. No jaundice. ENDOCRINE: No chills, fevers. No excessive weight gain or loss. No polydipsia or polyuria. PSYCHIATRIC: Recent loss of her . NEUROLOGY: No change in mental status. Denies dizziness, headache. ENT: Vision unremarkable. CONSTITUTIONAL: No recent weight loss. No fever, chills, night sweats. Has had some increased weakness and fatigue. Past Medical History Past Medical History: No Reported History History of Any Multi-Drug Resistant Organisms: None Reported Past Surgical History: No Surgical Hx Reported Additional Past Surgical History / Comment(s): beryl to lt arm removed Past Anesthesia/Blood Transfusion Reactions: No Reported Reaction Past Psychological History: No Psychological Hx Reported Smoking Status: Never smoker Past Alcohol Use History: Occasional Past Drug Use History: None Reported - Past Family History Mother Family Medical History: Rheumatoid Arthritis (RA) Father Family Medical History: COPD Medications and Allergies Home Medications Medication Instructions Recorded Confirmed Type No Known Home Medications 05/18/23 05/18/23 History Allergies Allergy/AdvReac Type Severity Reaction Status Date / Time No Known Allergies Allergy Verified 05/18/23 13:26 Physical Exam Vitals: Vital Signs Temp Pulse Pulse Resp BP BP Pulse Ox 05/19/23 08:33 81 16 92/51 93 L 05/19/23 04:00 92 17 127/69 97 05/18/23 23:43 97.9 F 78 16 129/67 97 05/18/23 19:49 98.1 F 88 18 142/83 97 05/18/23 19:06 75 18 126/69 98 05/18/23 18:26 76 18 138/72 98 05/18/23 17:20 98.4 F 78 18 140/70 97 05/18/23 16:49 98.4 F 75 18 128/62 97 05/18/23 16:46 98.3 F 76 18 122/61 97 05/18/23 16:35 98.4 F 76 18 126/63 96 05/18/23 16:32 77 18 128/62 97 05/18/23 15:09 98.6 F 79 18 121/56 96 05/18/23 14:49 98.1 F 80 18 115/59 96 05/18/23 14:37 98.1 F 79 18 125/54 96 05/18/23 14:14 87 18 153/65 96 05/18/23 11:49 98.1 F 95 20 139/70 99 Intake and Output 05/18/23 05/19/23 05/19/23 22:59 06:59 14:59 Intake Total 620 Balance 620 Intake: Oral 0 Blood Product 620 Rc As-1 Unit 310 [id number] Rc As-1 Unit 310 [id number] Other: Voiding Method Toilet Toilet # Voids 1 Weight 68.039 kg General appearance: The patient is alert, oriented, appears in no acute distress. HET: Head is normocephalic and atraumatic. Conjunctiva pink. Sclera anicteric. Neck: Supple without lymphadenopathy. Trachea midline. Heart: Regular. Lungs: Equal expansion, normal respiratory effort. Abdomen: Soft, nontender, nondistended with bowel sounds. No guarding or rigidity. Skin: No rashes. No jaundice. Extremities: Normal skin color and turgor. No pedal edema. Neurological: No focal deficits. Alert and oriented x3. Results CBC & Chem 7: 05/19/23 08:06 05/19/23 08:06 Labs: Abnormal Lab Results - Last 24 Hours (Table) 05/18/23 05/18/23 05/18/23 Range/Units 12:47 12:47 12:47 WBC 10.9 H (3.8-10.6) k/uL RBC 3.14 L (3.80-5.40) m/uL Hgb 5.9 L* (11.4-16.0) gm/dL Hct 19.7 L* (34.0-46.0) % MCV 62.7 L (80.0-100.0) fL MCH 18.6 L (25.0-35.0) pg MCHC 29.7 L (31.0-37.0) g/dL RDW 18.2 H (11.5-15.5) % Neutrophils # 8.9 H (1.3-7.7) k/uL Neutrophils # (Manual) (1.3-7.7) k/uL Lymphocytes # 0.7 L (1.0-4.8) k/uL Lymphocytes # (Manual) (1.0-4.8) k/uL BUN 18 H (7-17) mg/dL Crossmatch See Detail 05/19/23 05/19/23 Range/Units 00:26 08:06 WBC 10.9 H (3.8-10.6) k/uL RBC 3.79 L (3.80-5.40) m/uL Hgb 8.7 L D 8.5 L (11.4-16.0) gm/dL Hct 27.7 L 26.9 L (34.0-46.0) % MCV 72.4 L D 71.0 L (80.0-100.0) fL MCH 22.8 L 22.4 L (25.0-35.0) pg MCHC (31.0-37.0) g/dL RDW 20.5 H 20.6 H (11.5-15.5) % Neutrophils # (1.3-7.7) k/uL Neutrophils # (Manual) 8.72 H (1.3-7.7) k/uL Lymphocytes # 0.8 L (1.0-4.8) k/uL Lymphocytes # (Manual) 0.87 L (1.0-4.8) k/uL BUN (7-17) mg/dL Crossmatch Assessment and Plan (1) Anemia Narrative/Plan: A 3-year-old female with no previous history of GI bleed came in with hemoglobin of 5.9 requiring 2 units of blood with a repeat hemoglobin 8.7. She's not on any anticoagulation does not use NSAIDs regularly. No previous history of peptic ulcer disease last colonoscopy many years ago. Denies signs of leading, no abdominal pain nausea or vomiting. Patient does have microcytic anemia as well as elevated BUN on admission which could be consistent with a upper GI bleed however with no recent colonoscopy would recommend both upper and lower endoscopy. We will plan for a clear liquid diet today with bowel prep and proceed with EGD colonoscopy tomorrow. Current Visit: Yes Status: Acute Code(s): D64.9 - ANEMIA, UNSPECIFIED SNOMED Code(s): 124156145 (2) Weakness Current Visit: Yes Status: Acute Code(s): R53.1 - WEAKNESS SNOMED Code(s): 94194372 (3) Elevated d-dimer Current Visit: Yes Status: Acute Code(s): R79.89 - OTHER SPECIFIED ABNORMAL FINDINGS OF BLOOD CHEMISTRY SNOMED Code(s): 899972969 Plan: 1. Continue symptomatic and supportive care 2. Daily CBC, transfuse for hemoglobin less than 7 3. Protonix 40 mg daily 4. Clear liquid diet, nothing by mouth after midnight 5. Bowel prep this evening 6. Patient is scheduled for CT angiogram for elevated d-dimer Thank you For this consultation, we will continue to follow. Dr. Nitza Saucedo I agree with the dictator's note, documented as a scribe by Alyce Wyatt.
[2023-05-19] MEDS ORDERED: PEG 3350 (236 GM/BTL) + LYTES 4,000 ML BOTTLE PO ONE (16:00)
--- NOTE | 2023-05-19 19:12 | CT ---
EXAMINATION TYPE: CT angio chest DATE OF EXAM: 05/19/2023 COMPARISON: 10/02/2020 HISTORY: 83-year-old female shortness of breath, elevated d-dimer, Pulmonary Embolism TECHNIQUE: Contiguous axial scanning of the chest after the administration of 100 ml mL of Isovue 370 . Coronal/sagittal MIP reconstructions performed. CT DLP: 226.6mGycm. Automatic exposure control utilized for a dose reduction. FINDINGS: The heart is normal size without pericardial effusion. No flattening of the interventricular septum r eflux of contrast into the hepatic veins. Some LAD coronary artery calcifications are present. Mild atherosclerotic arch calcifications. There is mild stenosis at the origin of the left subclavian artery. Satisfactory opacification of the pulmonary arterial system. The exam is positive for pulmonary embol i on the left involving lobar, segmental, and some cystic segmental branches especially in the lower lobe. Moderate burden on the left. No large central or saddle embolus is seen. There is a small left pleural effusion with adjacent patchy left basilar opacity. Mild emphysematous change. Biapical pleural-parenchymal scarring. Lesser degree of patchy opacity, probably atelectasis at the right base. There is a moderate to large hiatal hernia involving half of the stomach in the lower chest. Bones: Accentuated midthoracic kyphosis with mild degenerative disc disease. IMPRESSION: 1. Exam positive for pulmonary emboli on the left, moderate burden scattered throughout the lobar, se gmental, and some subsegmental branches especially of the lower lobe. No CT evidence for right heart strain. 2. COPD with mild emphysema. There is a small left pleural effusion with prominent patchy left basila r airspace disease. Correlate to exclude pneumonia. Follow-up can be considered to exclude developing pulmonary infarct. 3. Moderate to large hiatal hernia involving approximately half of the stomach in the lower chest. Critical findings called to Nurse Stevenson on at 7:05pm.
--- NOTE | 2023-05-20 04:00 | P.CNPUL ---
History of Present Illness Consult date: 05/20/23 Requesting physician: Kiko Flores Reason for consult: other (Pulmonary embolism) Chief complaint: Abnormal labs, fatigue History of present illness: I am seeing this patient in consultation today 05/20/2023 after she was found to have multiple left sided segmental and subsegmental pulmonary emboli. Patient was actually admitted after she was found to be anemic by her primary care provider's office, and was sent to the emergency room two days ago. Patient is an 83-year-old white female with limited past medical history. Patient states that she has been very stressed, as her recently passed. She has been very fatigued and admits some exertional shortness of breath that started on Wednesday. Denies any fevers, chills, cough, chest pain, hemoptysis. Her hemoglobin level was found to be low on outpatient labs, and she was directed to the emergency room. Hemoglobin level at our facility was 5.9 g/dL. She was transfused 2 units PRBCs, and repeat hemoglobin level is up to 8.5 g/dL. She denies any GI bleeding. Denies any melena. Denies any nausea, vomiting, hematemesis. Denies any abdominal pain. Does not take any anticoagulants. Denies frequent NSAID use. Occasionally takes Aleve. Unsure of when her last colonoscopy was. Denies any recent trauma or surgery. Denies any prolonged travel. Denies any familial or personal history of blood clots. Denies history of malignancy. D-dimer was elevated at 3.07. A follow-up chest CTA was positive for pulmonary emboli on the left, moderate burden scattered throughout the lobar, segmental, and subsegmental branches of the lower lobe. No CT evidence of right heart strain. There was a small left pleural effusion with prominent patchy left basilar airspace disease. Consider developing pulmonary infarct versus atelectasis. Infectious process less likely. Patient denies any infectious symptoms. There is also a moderate to large hiatal hernia. Patient is currently lying in bed, on room air, in no acute distress. She is reportedly scheduled for a EGD/colonoscopy tomorrow. She is drinking GoLYTELY. No IV he ranjit was started, as an acute bleed has not been ruled out. Vascular services were consulted for possible IVC filter. Most recent CBC shows a WBC count of 9.6, hemoglobin 8.5, hematocrit 26.9, platelets 216. Coagulation profile within normal limits. CMP was unremarkable. Vital signs are stable. Review of Systems REVIEW OF SYSTEMS: CONSTITUTIONAL: Denies any recent significant weight loss or weight gain. EYES: Denies change in vision. EARS, NOSE, MOUTH, THROAT: Denies headaches, denies sore throat. Admits generalized fatigue. CARDIOVASCULAR: Denies chest pain, palpitations or syncopal episodes. RESPIRATORY: Denies cough, congestion or hemoptysis. Admits exertional shortness of breath and lightheadedness GASTROINTESTINAL: Denies change in appetite, abdominal pain, nausea and vomiting, or diarrhea GENITOURINARY: Denies hematuria, denies infections. MUSKULOSKELETAL: Denies pain, denies swelling. INTEGUMENTARY: Denies rash, denies eczema. NEUROLOGICAL: Denies recent memory loss, no recent seizure activity. PSYCHIATRIC: Denies anxiety, denies depression. HEMATOLOGIC/LYMPHATIC: Denies anemia, denies enlarged lymph node Past Medical History Past Medical History: No Reported History History of Any Multi-Drug Resistant Organisms: None Reported Past Surgical History: No Surgical Hx Reported Additional Past Surgical History / Comment(s): beryl to lt arm removed Past Anesthesia/Blood Transfusion Reactions: No Reported Reaction Past Psychological History: No Psychological Hx Reported Smoking Status: Never smoker Past Alcohol Use History: Occasional Past Drug Use History: None Reported - Past Family History Mother Family Medical History: Rheumatoid Arthritis (RA) Father Family Medical History: COPD Medications and Allergies Home Medications Medication Instructions Recorded Confirmed Type No Known Home Medications 05/18/23 05/18/23 History Allergies Allergy/AdvReac Type Severity Reaction Status Date / Time No Known Allergies Allergy Verified 05/18/23 13:26 Physical Exam Vitals: Vital Signs Temp Pulse Resp BP BP Pulse Ox 05/20/23 00:00 98.1 F 66 16 112/62 96 05/19/23 22:45 98.1 F 66 17 128/61 95 05/19/23 15:58 99.3 F 76 16 122/63 94 L 05/19/23 11:55 78 16 125/72 98 05/19/23 08:33 81 16 92/51 93 L 05/19/23 04:00 92 17 127/69 97 Intake and Output 05/19/23 05/19/23 05/20/23 14:59 22:59 06:59 Intake Total 500 240 Balance 500 240 Intake: IV 300 Sodium Chloride 0.9% 1, 300 000 ml @ 75 mls/hr IV . [id number] [facility] Rx#:[id number] Oral 200 240 Other: Voiding Method Toilet Toilet # Voids 1 GENERAL EXAM: Alert, 83-year-old white female, comfortable in no apparent distress. HEAD: Normocephalic and atraumatic EYES: Normal reaction of pupils, equal size. NOSE: Clear with pink turbinates. THROAT: No erythema or exudates. NECK: No masses, no JVD. CHEST: No chest wall deformity. LUNGS: Equal air entry with diminished left lower lung sounds. On room air. No conversational dyspnea or accessory muscle use.. CVS: S1 and S2 normal with no audible murmur, regular rhythm. No extra heart sounds ABDOMEN: No hepatosplenomegaly, active bowel sounds, no guarding or rigidity. SPINE: No scoliosis or deformity SKIN: No rashes CENTRAL NERVOUS SYSTEM: No focal deficits, tone is normal in all 4 extremities. EXTREMITIES: There is no peripheral edema, clubbing, or cyanosis. Peripheral pulses are intact. Results - Laboratory Findings CBC and BMP: 05/19/23 08:06 05/19/23 08:06 PT/INR, D-dimer PT 10.8 sec (10.0-12.5) 05/18/23 12:47 INR 1.0 (<1.2) 05/18/23 12:47 D-Dimer 3.07 mg/L FEU (<0.60) H 05/19/23 09:55 Abnormal lab findings: Abnormal Labs 05/18/23 05/18/23 05/18/23 12:47 12:47 12:47 WBC 10.9 H RBC 3.14 L Hgb 5.9 L* Hct 19.7 L* MCV 62.7 L MCH 18.6 L MCHC 29.7 L RDW 18.2 H Neutrophils # 8.9 H Neutrophils # (Manual) Lymphocytes # 0.7 L Lymphocytes # (Manual) D-Dimer Sodium Carbon Dioxide BUN 18 H Total Protein Albumin Crossmatch See Detail 05/19/23 05/19/23 05/19/23 00:26 08:06 08:06 WBC 10.9 H RBC 3.79 L Hgb 8.7 L D 8.5 L Hct 27.7 L 26.9 L MCV 72.4 L D 71.0 L MCH 22.8 L 22.4 L MCHC RDW 20.5 H 20.6 H Neutrophils # Neutrophils # (Manual) 8.72 H Lymphocytes # 0.8 L Lymphocytes # (Manual) 0.87 L D-Dimer Sodium 136 L Carbon Dioxide 21 L BUN Total Protein 5.9 L Albumin 3.0 L Crossmatch 05/19/23 09:55 WBC RBC Hgb Hct MCV MCH MCHC RDW Neutrophils # Neutrophils # (Manual) Lymphocytes # Lymphocytes # (Manual) D-Dimer 3.07 H Sodium Carbon Dioxide BUN Total Protein Albumin Crossmatch - Diagnostic Findings Chest x-ray: image reviewed CT scan - chest: image reviewed Assessment and Plan Assessment: Acute anemia, working diagnosis is possible GI bleed. There is a tentative plan for undergo EGD/colonoscopy later this morning. She is undergoing bowel prep. Exertional dyspnea, chest CTA was positive for pulmonary emboli on the left, moderate burden scattered throughout the lobar, segmental, and subsegmental branches of the lower lobe. No central pulmonary embolism seen. No CT evidence of right heart strain. There was a small left pleural effusion with prominent patchy left basilar airspace disease. Consider developing pulmonary infarct versus compressive atelectasis. Infectious process less likely. No IV heparin, acute bleed is not ruled out at this time. Vascular services were consulted for possible IVC filter Small left-sided pleural effusion Moderate to large hiatal hernia Plan: Patient's medications, labs, imaging were reviewed. Patient's hemoglobin level is currently 8.5 g/dL after 2 units PRBC transfusion. Patient is scheduled to undergo possible EGD/colonoscopy later this morning. She is receiving bowel prep. Patient was noted to have multiple segmental and subsegmental pulmonary emboli especially in the left lower lobe. No large central emboli. No CT evidence of right-sided heart strain. Patient is hemodynamically stable. On room air. No IV heparin, as the patient may have an acute bleed. Vascular services were consulted for possible IVC filter. We will continue to follow, and further recommendations are forthcoming. I have personally seen and examined the patient, performed the documentation and the assessment and plan as written. Number of minutes spent on the visit:20 Time with Patient: Greater than 30
[2023-05-20] MEDS: PANTOPRAZOLE 40 MG/10 ML VIAL IVP SCH (08:37)
[2023-05-20 08:44] LABS: Anisocytosis Moderate; HCT 32.2 % (34.0-46.0); HGB 9.9 gm/dL (11.4-16.0); Hypochromasia Marked; MCH 22.4 pg (25.0-35.0); MCHC 30.6 g/dL (31.0-37.0); Microcytosis Marked; Platelet Count 250 k/uL (150-450); Poikilocytosis Moderate; RBC 4.42 m/uL (3.80-5.40); RDW 22.3 % (11.5-15.5); WBC 10.3 k/uL (3.8-10.6)
--- NOTE | 2023-05-20 08:52 | P.PN ---
Subjective Progress Note Date: 05/20/23 Principal diagnosis: GI bleed This is an 83-year-old female who was seen in our office on Wednesday with complaints of shortness of breath. Labs were drawn and completed and showed a hemoglobin of 5, so patient was referred to the emergency department. D-dimer was also elevated in our office, and chest CTA does show pulmonary embolism. GI and vascular are consulted. Patient was scheduled for an EGD and colonoscopy this morning, however was unable to complete prep. Scopes will be rescheduled for tomorrow. Vascular surgery will see patient today for possible filter placement. She is seen this morning laying in bed. She is resting comfortably and denies any current complaints. Objective - Vital Signs Vital signs: Vital Signs Temp 98.1 F 05/20/23 00:00 Pulse 78 05/20/23 04:00 Resp 16 05/20/23 04:00 BP 137/83 05/20/23 04:00 Pulse Ox 98 05/20/23 04:00 FiO2 Intake & Output 05/19/23 05/20/23 05/20/23 18:59 06:59 18:59 Intake Total 740 Balance 740 Intake: IV 300 Sodium Chloride 0.9% 1, 300 000 ml @ 75 mls/hr IV . [id number] [facility] Rx#:[id number] Oral 440 Other: Voiding Method Toilet # Voids 2 - Constitutional General appearance: Present: cooperative, no acute distress - EENT Eyes: Present: PERRLA - Neck Neck: Present: normal ROM. Absent: lymphadenopathy, rigidity - Respiratory Respiratory: bilateral: diminished - Cardiovascular Heart sounds: normal: S1, S2 - Gastrointestinal General gastrointestinal: Present: soft. Absent: tenderness - Integumentary Integumentary: Present: normal, normal turgor - Psychiatric Psychiatric: Present: A&O x's 3, appropriate affect, intact judgment & insight - Labs CBC & Chem 7: 05/20/23 08:30 05/19/23 08:06 Labs: Abnormal Lab Results - Last 24 Hours (Table) 05/19/23 05/19/23 05/19/23 Range/Units 08:06 08:06 09:55 RBC 3.79 L (3.80-5.40) m/uL Hgb 8.5 L (11.4-16.0) gm/dL Hct 26.9 L (34.0-46.0) % MCV 71.0 L (80.0-100.0) fL MCH 22.4 L (25.0-35.0) pg MCHC (31.0-37.0) g/dL RDW 20.6 H (11.5-15.5) % Lymphocytes # 0.8 L (1.0-4.8) k/uL D-Dimer 3.07 H (<0.60) mg/L FEU Sodium 136 L (137-145) mmol/L Carbon Dioxide 21 L (22-30) mmol/L Total Protein 5.9 L (6.3-8.2) g/dL Albumin 3.0 L (3.5-5.0) g/dL 05/20/23 Range/Units 08:30 RBC (3.80-5.40) m/uL Hgb 9.9 L (11.4-16.0) gm/dL Hct 32.2 L (34.0-46.0) % MCV 73.0 L (80.0-100.0) fL MCH 22.4 L (25.0-35.0) pg MCHC 30.6 L (31.0-37.0) g/dL RDW 22.3 H (11.5-15.5) % Lymphocytes # (1.0-4.8) k/uL D-Dimer (<0.60) mg/L FEU Sodium (137-145) mmol/L Carbon Dioxide (22-30) mmol/L Total Protein (6.3-8.2) g/dL Albumin (3.5-5.0) g/dL Assessment and Plan (1) Anemia Current Visit: Yes Status: Acute Code(s): D64.9 - ANEMIA, UNSPECIFIED SNOMED Code(s): 162592002 (2) GI bleed Current Visit: Yes Status: Acute Code(s): K92.2 - GASTROINTESTINAL HEMORRHAGE, UNSPECIFIED SNOMED Code(s): 78137892 (3) Weakness Current Visit: Yes Status: Acute Code(s): R53.1 - WEAKNESS SNOMED Code(s): 36509474 (4) Pulmonary embolism on left Current Visit: Yes Status: Acute Code(s): I26.99 - OTHER PULMONARY EMBOLISM WITHOUT ACUTE COR PULMONALE SNOMED Code(s): 47170736 Plan: Appreciate recommendations from GI and vascular surgeon Check CBC and CMP in the morning Patient seen and evaluated by nurse practitioner, physician in agreement with plan
[2023-05-20 09:01] LABS: ALT 19 U/L (4-34); AST 27 U/L (14-36); African American GFR (CKD) >90 (>60 ml/min/1.73 sqM); Albumin 3.5 g/dL (3.5-5.0); Alkaline Phosphatase 111 U/L (38-126); Anion Gap 13 mmol/L; Blood Urea Nitrogen 8 mg/dL (7-17); Calcium 9.1 mg/dL (8.4-10.2); Carbon Dioxide 21 mmol/L (22-30); Chloride 105 mmol/L (98-107); Glucose 95 mg/dL (74-99); Non-African American GFR(CKD) 83 (>60 ml/min/1.73 sqM); Potassium 4.2 mmol/L (3.5-5.1); Sodium 139 mmol/L (137-145); Total Bilirubin 0.8 mg/dL (0.2-1.3); Total Protein 6.7 g/dL (6.3-8.2)
--- NOTE | 2023-05-20 12:55 | US ---
EXAMINATION TYPE: US venous doppler duplex LE BI DATE OF EXAM: 05/20/2023 11:02 AM Exam done portable COMPARISON: NONE CLINICAL INDICATION: Female, 83 years old with history of PE, evaluate for DVT; SIDE PERFORMED: Bilateral TECHNIQUE: The lower extremity deep venous system is examined utilizing real time linear array sonog jadon with graded compression, doppler sonography and color-flow sonography. VESSELS IMAGED: Common Femoral Vein Deep Femoral Vein Greater Saphenous Vein * Femoral Vein Popliteal Vein Small Saphenous Vein * Proximal Calf Veins (* superficial vessels) Right Leg: Positive for DVT popliteal vein. This is hypoechoic with no color flow demonstrated. Left Leg: Appears negative for DVT IMPRESSION: 1. Right: Positive for occlusive DVT of the popliteal vein. 2. Left: No evidence for DVT left lower extremity imaged from the groin to the upper calf.
--- NOTE | 2023-05-20 14:51 | P.PN ---
Subjective Progress Note Date: 05/20/23 Principal diagnosis: Anemia This is a pleasant 83-year-old female who was sent in to the emergency department by her PCP for abnormal outpatient labs. Patient had seen her use be recently for shortness of breath and was not noted to have low hemoglobin and was sent in for further evaluation. On admission she had a hemoglobin of 5.9 requiring 2 units of blood. Repeat hemoglobin today up to 8.7. Patient denies any blood in her stool, no abdominal pain, nausea or vomiting. States she is not on any anticoagulation and only takes Aleve occasionally. Last colonoscopy was several years ago. Apparently patient lost her recently and has not been caring for herself. She has been complaining of increased weakness and fatigue. Admitting labs WBC 10.9 hemoglobin 5.9 hematocrit 19 platelet count 275,000 INR 1.0 sodium 137 potassium 4.3 BUN 18 creatinine 0.7 total bilirubin 0.5 AST 21 ALT 16 alkaline phosphatase 114 Today's labs WBC 9.6 hemoglobin 8.5 hematocrit 26 platelet count 216,000 d-dimer 3.07 sodium 136 potassium 4.4 BUN 12 creatinine 0.6 05/20/23 Patient seen and examined today as a follow-up. She was scheduled for EGD and colonoscopy however did not complete her bowel prep and still has brown stool. Patient continues to deny any abdominal pain, nausea or vomiting. Genitalia elevated d-dimer yesterday and underwent a CT angiogram of the chest that found pulmonary embolism. Anticoagulation is currently on hold due to recent anemia. Vascular surgery consulted for possible IVC filter placement. Objective - Vital Signs Vital signs: Vital Signs Temp 98.1 F 05/20/23 00:00 Pulse 78 05/20/23 04:00 Resp 16 05/20/23 04:00 BP 137/83 05/20/23 04:00 Pulse Ox 98 05/20/23 04:00 FiO2 Intake & Output 05/19/23 05/20/23 05/20/23 18:59 06:59 18:59 Intake Total 740 Balance 740 Intake: IV 300 Sodium Chloride 0.9% 1, 300 000 ml @ 75 mls/hr IV . [id number] [facility] Rx#:[id number] Oral 440 Other: Voiding Method Toilet # Voids 2 - Exam General appearance: The patient is alert, oriented, appears in no acute distress. HET: Head is normocephalic and atraumatic. Conjunctiva pink. Sclera anicteric. Neck: Supple without lymphadenopathy. Abdomen: Soft, nontender, nondistended with bowel sounds. No guarding or rigidity. Extremities: Normal skin color and turgor. No pedal edema Skin: No rashes, no jaundice Neurological: No focal deficits. Alert and oriented. - Labs CBC & Chem 7: 05/20/23 08:30 05/20/23 08:30 Labs: Abnormal Lab Results - Last 24 Hours (Table) 05/19/23 05/19/23 05/19/23 Range/Units 08:06 08:06 09:55 RBC 3.79 L (3.80-5.40) m/uL Hgb 8.5 L (11.4-16.0) gm/dL Hct 26.9 L (34.0-46.0) % MCV 71.0 L (80.0-100.0) fL MCH 22.4 L (25.0-35.0) pg RDW 20.6 H (11.5-15.5) % Lymphocytes # 0.8 L (1.0-4.8) k/uL D-Dimer 3.07 H (<0.60) mg/L FEU Sodium 136 L (137-145) mmol/L Carbon Dioxide 21 L (22-30) mmol/L Total Protein 5.9 L (6.3-8.2) g/dL Albumin 3.0 L (3.5-5.0) g/dL Assessment and Plan (1) Anemia Narrative/Plan: A 3-year-old female with no previous history of GI bleed came in with hemoglobin of 5.9 requiring 2 units of blood with a repeat hemoglobin 8.7. She's not on any anticoagulation does not use NSAIDs regularly. No previous history of peptic ulcer disease last colonoscopy many years ago. Denies signs of leading, no abdominal pain nausea or vomiting. Patient does have microcytic anemia as well as elevated BUN on admission which could be consistent with a upper GI bleed however with no recent colonoscopy would recommend both upper and lower endoscopy. We will plan for a clear liquid diet today with bowel prep and proceed with EGD colonoscopy tomorrow. Current Visit: Yes Status: Acute Code(s): D64.9 - ANEMIA, UNSPECIFIED SNOMED Code(s): 256947943 (2) Weakness Current Visit: Yes Status: Acute Code(s): R53.1 - WEAKNESS SNOMED Code(s): 09371007 (3) Elevated d-dimer Current Visit: Yes Status: Acute Code(s): R79.89 - OTHER SPECIFIED ABNORMAL FINDINGS OF BLOOD CHEMISTRY SNOMED Code(s): 548502703 (4) Pulmonary embolism on left Current Visit: Yes Status: Acute Code(s): I26.99 - OTHER PULMONARY EMBOLISM WITHOUT ACUTE COR PULMONALE SNOMED Code(s): 57336379 Plan: 1. Continue symptomatic and supportive care 2. Daily CBC, transfuse for hemoglobin less than 7 3. Protonix 40 mg daily 4. Clear liquid diet, nothing by mouth after midnight 5. Finish Bowel prep 6. Patient rescheduled for EGD and colonoscopy tomorrow Thank you For this consultation, we will continue to follow. Dr. Nitza Saucedo I agree with the dictator's note, documented as a scribe by Alyce Wyatt.
--- NOTE | 2023-05-20 14:53 | P.GSCN ---
History of Present Illness Consult date: 05/20/23 Reason for Consult: IVC filter Requesting physician: Jose Fitch History of present illness: This 83-year-old female who presented to the emergency department directed by her PCP for low hemoglobin. She had recently been seen by her PCP Dr. Flores for shortness of breath. She was noted to be quite anemic with a hemoglobin of 5.89. She required 2 units of blood with a repeat hemoglobin of 8.7. She has not been on any anticoagulation denied any bleeding no pain or nausea or vomiting. Patient was scheduled today to undergo EGD and colonoscopy however she failed to complete her bowel prep. Today's repeat hemoglobin is stable at 9.9, she was noted yesterday to have an elevated d-dimer and underwent a CT an giogram of the chest that reported positive pulmonary emboli of the left, moderate burden scattered throughout the lobar, segmental and subsegmental branches especially in the lower lobe. No CT evidence for right heart strain. Patient also with COPD mild emphysema moderate to large hiatal hernia. Pulmonology was consulted for pulmonary embolism, and due to her anemia they held off on anticoagulation and consulted vascular surgery for possible IVC filter placement. Patient denies any previous history of blood clots. No history of blood clots in the legs and there is no current venous duplex of the lower extremities at this time available. Patient currently denies any chest pain, no shortness of breath while lying down, no abdominal pain, nausea or vomiting. Denies any blood in her stools. Review of Systems A 14 point review systems was completed all pertinent positives and negatives as stated in the HPI. Past Medical History Past Medical History: No Reported History History of Any Multi-Drug Resistant Organisms: None Reported Past Surgical History: No Surgical Hx Reported Additional Past Surgical History / Comment(s): beryl to lt arm removed Past Anesthesia/Blood Transfusion Reactions: No Reported Reaction Past Psychological History: No Psychological Hx Reported Smoking Status: Never smoker Past Alcohol Use History: Occasional Past Drug Use History: None Reported - Past Family History Mother Family Medical History: Rheumatoid Arthritis (RA) Father Family Medical History: COPD Medications and Allergies Home Medications Medication Instructions Recorded Confirmed Type No Known Home Medications 05/18/23 05/18/23 History Allergies Allergy/AdvReac Type Severity Reaction Status Date / Time No Known Allergies Allergy Verified 05/18/23 13:26 Surgical - Exam Vital Signs Temp Pulse Resp BP Pulse Ox 98.1 F 95 20 139/70 99 05/18/23 11:49 05/18/23 11:49 05/18/23 11:49 05/18/23 11:49 05/18/23 11:49 General appearance: The patient is alert, oriented, appears in no acute distress. HET: Head is normocephalic and atraumatic. Pupils are equal and reactive. Neck: Supple. Heart: Regular. Lungs: Equal expansion, normal respiratory effort. Abdomen: Soft, nontender, nondistended. Extremities: Normal skin color and turgor. Palpable bilateral DP pulses. Neurological: No focal deficits. Strength and sensation are grossly intact. Results - Labs 05/20/23 08:30 05/20/23 08:30 Abnormal Lab Results - Last 24 Hours (Table) 05/19/23 05/19/23 05/19/23 Range/Units 08:06 08:06 09:55 RBC 3.79 L (3.80-5.40) m/uL Hgb 8.5 L (11.4-16.0) gm/dL Hct 26.9 L (34.0-46.0) % MCV 71.0 L (80.0-100.0) fL MCH 22.4 L (25.0-35.0) pg RDW 20.6 H (11.5-15.5) % Lymphocytes # 0.8 L (1.0-4.8) k/uL D-Dimer 3.07 H (<0.60) mg/L FEU Sodium 136 L (137-145) mmol/L Carbon Dioxide 21 L (22-30) mmol/L Total Protein 5.9 L (6.3-8.2) g/dL Albumin 3.0 L (3.5-5.0) g/dL Diabetes panel 05/19/23 Range/Units 08:06 Sodium 136 L (137-145) mmol/L Potassium 4.4 (3.5-5.1) mmol/L Chloride 106 (98-107) mmol/L Carbon Dioxide 21 L (22-30) mmol/L BUN 12 (7-17) mg/dL Creatinine 0.69 (0.52-1.04) mg/dL Glucose 97 (74-99) mg/dL Calcium 8.8 (8.4-10.2) mg/dL AST 19 (14-36) U/L ALT 15 (4-34) U/L Alkaline Phosphatase 104 (38-126) U/L Total Protein 5.9 L (6.3-8.2) g/dL Albumin 3.0 L (3.5-5.0) g/dL Calcium panel 05/19/23 Range/Units 08:06 Calcium 8.8 (8.4-10.2) mg/dL Phosphorus 3.6 (2.5-4.5) mg/dL Albumin 3.0 L (3.5-5.0) g/dL Pituitary panel 05/19/23 Range/Units 08:06 Sodium 136 L (137-145) mmol/L Potassium 4.4 (3.5-5.1) mmol/L Chloride 106 (98-107) mmol/L Carbon Dioxide 21 L (22-30) mmol/L BUN 12 (7-17) mg/dL Creatinine 0.69 (0.52-1.04) mg/dL Glucose 97 (74-99) mg/dL Calcium 8.8 (8.4-10.2) mg/dL Adrenal panel 05/19/23 Range/Units 08:06 Sodium 136 L (137-145) mmol/L Potassium 4.4 (3.5-5.1) mmol/L Chloride 106 (98-107) mmol/L Carbon Dioxide 21 L (22-30) mmol/L BUN 12 (7-17) mg/dL Creatinine 0.69 (0.52-1.04) mg/dL Glucose 97 (74-99) mg/dL Calcium 8.8 (8.4-10.2) mg/dL Total Bilirubin 0.8 (0.2-1.3) mg/dL AST 19 (14-36) U/L ALT 15 (4-34) U/L Alkaline Phosphatase 104 (38-126) U/L Total Protein 5.9 L (6.3-8.2) g/dL Albumin 3.0 L (3.5-5.0) g/dL - Imaging CT scan - chest: report reviewed (The HPI for details) Assessment and Plan Assessment: 1. Pulmonary embolism 2. Right lower extremity deep vein thrombosis 3. Anemia Plan: 1. Nothing by mouth after midnight 2. Patient scheduled for IVC filter placement tomorrow 3. Continue with recommendations from pulmonology 4. Rest of medical management per primary medical team Thank you for this consultation. The impression and plan of care has been dictated as directed. I performed a history and examination of this patient, discussed the same with the dictator. I agree with the dictator's note ,documented as a scribe. Any additional findings or plans will be noted.
[2023-05-20] MEDS ORDERED: MAGNESIUM CITRATE 296 ML BOTTLE PO ONE (17:00)
[2023-05-20] MEDS: SODIUM CHLORIDE 0.9% 1,000 ML IV SCH (18:48)
[2023-05-20] MEDS ORDERED: LIDOCAINE 1% (10MG/ML) FOR IV START INTRADERMA PRN (23:18)
[2023-05-21] MEDS ORDERED: LIDOCAINE 1% INJ 10MG/ML (20 ML MDV) ONE ×2 (07:03→13:31)
[2023-05-21] MEDS ORDERED: PROPOFOL 10 MG/ML 20 ML VIAL IV ONE (07:03)
[2023-05-21] MEDS ORDERED: IV FLUID CONTINUATION 1,000 ML IV ONE ×2 (07:08→13:25)
--- NOTE | 2023-05-21 07:25 | P.PCN ---
Date of Procedure: 05/21/23 Procedure(s) Performed: Brief history: Patient is a pleasant 83-year-old white female admitted hospital with severe symptomatic anemia and hemoglobin of 5.8 g/dL requiring blood transfusion.. Denies any GI bleed. Her abdominal pain, nausea vomiting. She is scheduled scheduled for an elective upper endoscopy as well as colonoscopy to evaluate further. Procedure performed: Esophagogastroduodenoscopy with biopsy Colonoscopy Preoperative diagnosis: Severe symptomatic iron deficiency anemia Anesthesia: MAC Procedure: After informed consent was obtained from the patient was brought into the endoscopy unit and IV sedation was administered by anesthesia under continuous monitoring. Initially upper endoscopy was done. The Olympus GF 160 video endoscope was inserted inserted into the mouth and esophagus intubated without any difficulty and was gradually advanced into the stomach and duodenum and carefully examined. The bulb and second part of the duodenum appeared normal. The scope was then withdrawn into the stomach adequately insufflated with air and upon careful examination the antrum had mild gastritis and biopsies were done from this area. In the proximal body the stomach and diaphragmatic hiatus Arpan erosions and one superficial linear ulceration measuring 1 cm in size that was biopsied. No active bleeding noted. Rest of the body, cardia and fundus appeared normal. The scope was then withdrawn into the esophagus. Moderate size hiatal hernia noted. The GE junction was located at 33 cm to the incisors. It appeared regular with no erythema erosions or ulcerations. Rest of the esophagus appeared normal. Patient tolerated the procedure well. At this time the patient continued to remain sedation. Initial digital rectal examination was normal. Olympus CF 160 video colonoscope was then inserted into the rectum and gradually advanced to the cecum without any difficulty. Careful examination was performed as the scope was gradually being withdrawn. The prep was excellent. The cecum, ascending colon, transverse colon, descending colon, sigmoid colon and rectum appeared normal. Extensive left-sided diverticulosis. Retroflexion was performed in the rectum and no lesions were noted. Patient tolerated the procedure well. Impression: 1. Upper endoscopy revealed 1 cm clean-based linear gastric ulcer in the proximal body the stomach along the diaphragmatic hiatus status post biopsy, moderate size hiatal hernia and mild antral gastritis 2. Colonoscopy revealed extensive left sided diverticulosis but no evidence of colorectal neoplasia Recommendations: Findings of this examination were discussed with the patient as well as a family. She was advised to follow with the biopsy results. Continue with Protonix 40 mg daily. Advance diet as tolerated.. She'll be started on anticoagulation if needed.
[2023-05-21] MEDS: SODIUM CHLORIDE 0.9% 1,000 ML IV SCH ×2 (07:31→07:45)
[2023-05-21] MEDS: LACTATED RINGERS 1,000 ML IV SCH ×2 (07:31→07:32)
[2023-05-21] MEDS: PANTOPRAZOLE 40 MG/10 ML VIAL IVP SCH (07:45)
--- NOTE | 2023-05-21 08:39 | P.PN ---
Subjective Progress Note Date: 05/21/23 Principal diagnosis: Peptic ulcer disease with GI bleed. ]Female with known chronic illness noted to have gastric ulcer and DVT PE. She is now set to have IVC filter. Respiratory distress. No lower extremity pain stated. Objective - Vital Signs Vital signs: Vital Signs Temp 98.3 F 05/21/23 07:34 Pulse 84 05/21/23 07:34 Resp 20 05/21/23 07:34 BP 152/72 05/21/23 07:34 Pulse Ox 92 L 05/21/23 07:34 FiO2 Intake & Output 05/20/23 05/21/23 05/21/23 18:59 06:59 18:59 Intake Total 358 100 Balance 358 100 Intake: IV 100 Oral 358 Other: Voiding Method Toilet Toilet # Voids 2 1 # Bowel Movements 4 3 - Constitutional General appearance: Present: average body habitus, cooperative - EENT Eyes: Absent: abnormal pupil - Respiratory Respiratory: bilateral: diminished - Cardiovascular Rhythm: regular Heart sounds: normal: S1, S2 Abnormal Heart Sounds: Absent: S3 Gallop - Gastrointestinal General gastrointestinal: Present: soft. Absent: tenderness - Integumentary Integumentary: Absent: cellulitis - Labs CBC & Chem 7: 05/20/23 08:30 05/20/23 08:30 Labs: Abnormal Lab Results - Last 24 Hours (Table) 05/20/23 05/20/23 Range/Units 08:30 08:30 Hgb 9.9 L (11.4-16.0) gm/dL Hct 32.2 L (34.0-46.0) % MCV 73.0 L (80.0-100.0) fL MCH 22.4 L (25.0-35.0) pg MCHC 30.6 L (31.0-37.0) g/dL RDW 22.3 H (11.5-15.5) % Carbon Dioxide 21 L (22-30) mmol/L Assessment and Plan (1) Anemia Current Visit: Yes Status: Acute Code(s): D64.9 - ANEMIA, UNSPECIFIED SNOMED Code(s): 410978747 (2) GI bleed Current Visit: Yes Status: Acute Code(s): K92.2 - GASTROINTESTINAL HEMORRHAGE, UNSPECIFIED SNOMED Code(s): 51426120 (3) Weakness Current Visit: Yes Status: Acute Code(s): R53.1 - WEAKNESS SNOMED Code(s): 48842854 Plan: Gastric ulcer on endoscopy workup. Appreciate multiple consultants input area Await IV C filter. [facility] will be covering for the iday . Anticipate discharge in next 24-48 hours. Question need for anticoagulation in the milieu of Bleeding ulcer Check CBC and CMP in a.m.
[2023-05-21 09:43] LABS: Anisocytosis Moderate; HCT 26.9 % (34.0-46.0); Hypochromasia Marked; MCHC 30.5 g/dL (31.0-37.0); MCV 72.1 fL (80.0-100.0); Mean Platelet Volume 7.1; Microcytosis Marked; Platelet Count 224 k/uL (150-450); Poikilocytosis Moderate; RBC 3.73 m/uL (3.80-5.40); RDW 23.2 % (11.5-15.5)
[2023-05-21 10:02] LABS: HGB 8.2 gm/dL (11.4-16.0)
[2023-05-21 10:04] LABS: ALT 15 U/L (4-34); AST 21 U/L (14-36); African American GFR (CKD) >90 (>60 ml/min/1.73 sqM); Albumin 2.8 g/dL (3.5-5.0); Alkaline Phosphatase 95 U/L (38-126); Anion Gap 11 mmol/L; Blood Urea Nitrogen 5 mg/dL (7-17); Calcium 8.7 mg/dL (8.4-10.2); Carbon Dioxide 21 mmol/L (22-30); Chloride 107 mmol/L (98-107); Glucose 86 mg/dL (74-99); Non-African American GFR(CKD) 84 (>60 ml/min/1.73 sqM); Sodium 139 mmol/L (137-145); Total Bilirubin 0.6 mg/dL (0.2-1.3); Total Protein 5.5 g/dL (6.3-8.2)
--- NOTE | 2023-05-21 13:30 | P.PN ---
Subjective Progress Note Date: 05/21/23 Principal diagnosis: GI bleed, pulmonary embolism. I am seeing this patient in consultation today 05/20/2023 after she was found to have multiple left sided segmental and subsegmental pulmonary emboli. Patient was actually admitted after she was found to be anemic by her primary care provider's office, and was sent to the emergency room two days ago. Patient is an 83-year-old white female with limited past medical history. Patient states that she has been very stressed, as her recently passed. She has been very fatigued and admits some exertional shortness of breath that started on Wednesday. Denies any fevers, chills, cough, chest pain, hemoptysis. Her hemogl obin level was found to be low on outpatient labs, and she was directed to the emergency room. Hemoglobin level at our facility was 5.9 g/dL. She was transfused 2 units PRBCs, and repeat hemoglobin level is up to 8.5 g/dL. She denies any GI bleeding. Denies any melena. Denies any nausea, vomiting, hematemesis. Denies any abdominal pain. Does not take any anticoagulants. Denies frequent NSAID use. Occasionally takes Aleve. Unsure of when her last colonoscopy was. Denies any recent trauma or surgery. Denies any prolonged travel. Denies any familial or personal history of blood clots. Denies history of malignancy. D-dimer was elevated at 3.07. A follow-up chest CTA was positive for pulmonary emboli on the left, moderate burden scattered throughout the lobar, segmental, and subsegmental branches of the lower lobe. No CT evidence of right heart strain. There was a small left pleural effusion with prominent patchy left basilar airspace disease. Consider developing pulmonary infarct versus atelectasis. Infectious process less likely. Patient denies any infectious symptoms. There is also a moderate to large hiatal hernia. Patient is currently lying in bed, on room air, in no acute distress. She is reportedly scheduled for a EGD/colonoscopy tomorrow. She is drinking GoLYTELY. No IV heparin was started, as an acute bleed has not been ruled out. Vascular services were consulted for possible IVC filter. Most recent CBC shows a WBC count of 9.6, hemoglobin 8.5, hematocrit 26.9, platelets 216. Coagulation profile within normal limits. CMP was unremarkable. Vital signs are stable. Progress note dated 05/21/2023. This is a 83-year-old female was admitted with a diagnosis of acute GI bleed, and was also discovered have a pulmonary embolism. The patient has a hemoglobin this morning of 8.2. She's on room air, and getting saline at 75 mL an hour. She had an EGD and colonoscopy today which revealed a gastric ulcer, hiatal hernia, gastritis, and extensive diverticulosis. She is apparently going for a inferior vena caval filter later today. She was very lethargic, from the medicine she received for her endoscopy. White count 9, hemoglobin 8.2, hemato crit 26.9, platelet count 224,000. Sodium 139, potassium 4, chlorides 107, CO2 21, BUN 5, and creatinine 0.62. Albumin is 2.8. Since admission, the patient has received 2 units of packed red blood cells. Objective - Vital Signs Vital signs: Vital Signs Temp 98.3 F 05/21/23 07:34 Pulse 74 05/21/23 13:11 Resp 20 05/21/23 11:12 BP 128/69 05/21/23 11:12 Pulse Ox 91 L 05/21/23 11:12 FiO2 Intake & Output 05/20/23 05/21/23 05/21/23 18:59 06:59 18:59 Intake Total 358 100 Balance 358 100 Intake: IV 100 Oral 358 Other: Voiding Method Toilet Toilet Toilet # Voids 2 1 1 # Bowel Movements 4 3 - Exam No acute distress, oriented 3. Currently on room air. No respiratory distress. HEENT examination is grossly unremarkable. Mucous membranes are moist. No oral lesions. Neck supple. Full range of motion. No adenopathy thyromegaly or neck vein distention. Cardiovascular examination reveals regular rhythm rate. S1-S2 normal. No S3 or S4. No discernible murmur noted. Heart rate 74 bpm. Lungs reveal clear breath sounds. Breath sounds are equal bilaterally. No adventitious lung sounds including wheezes rhonchi or crackles. Room air saturation is 93%. Abdomen soft bowel sounds are heard. No masses or tenderness. Extremities are intact. No cyanosis clubbing or edema. Skin is without rash or lesion. Neurologic examination is brief but nonfocal. - Labs CBC & Chem 7: 05/21/23 08:52 05/21/23 08:52 Labs: Abnormal Lab Results - Last 24 Hours (Table) 05/21/23 05/21/23 Range/Units 08:52 08:52 RBC 3.73 L (3.80-5.40) m/uL Hgb 8.2 L D (11.4-16.0) gm/dL Hct 26.9 L (34.0-46.0) % MCV 72.1 L (80.0-100.0) fL MCH 22.0 L (25.0-35.0) pg MCHC 30.5 L (31.0-37.0) g/dL RDW 23.2 H (11.5-15.5) % Carbon Dioxide 21 L (22-30) mmol/L BUN 5 L (7-17) mg/dL Total Protein 5.5 L (6.3-8.2) g/dL Albumin 2.8 L (3.5-5.0) g/dL Assessment and Plan Assessment: Acute anemia, secondary to acute GI bleed, status post 2 units of PRBCs. Status post upper and lower endoscopy, with evidence of gastric ulcer, hiatal hernia, gastritis, and diverticulosis. Anticipated placement of a IVC filter, today, 05/21/2023. Acute hypoxemic respiratory failure secondary to pulmonary embolism. Small left pleural effusion. Moderate to large hiatal hernia. Plan: Plan dated 05/21/2023. The patient recently got back from her endoscopy. The findings included a gas tric ulcer, hiatal hernia, gastritis, diverticulosis. The patient's hemoglobin today was 8.2. She's received a total of 2 units of PRBCs. Patient's on room air, and getting saline at 75 mL an hour. The patient will have an IVC filter placement later today by vascular surgery. Additional recommendations and suggestions are forthcoming. We will continue to follow make recommendations along the way. Prognosis is guarded. Time with Patient: Less than 30
[2023-05-21] MEDS ORDERED: LIDOCAINE 1% INJ 10MG/ML (20 ML MDV) SQ ONE (13:40)
[2023-05-21] MEDS ORDERED: IOPAMIDOL-370 100ML BTL INJ ONE (13:45)
--- NOTE | 2023-05-21 18:13 | P.OP ---
Date of Procedure: 05/21/23 Preoperative Diagnosis: Deep venous thrombosis with a relative contraindication to anticoagulation. Postoperative Diagnosis: Same. Procedure(s) Performed: 1: Ultrasound-guided cannulation right femoral vein. 2: Right iliac venogram and inferior venacavogram. 3: Placement of IVC filter. Anesthesia: local Surgeon: Aidan Wisdom Pathology: none sent Condition: stable Disposition: no change Indications for Procedure: Patient is an 83-year-old female who suffering from a GI bleed with severe anemia requiring transfusion of multiple units of packed red blood cells. Additionally she is found be suffering from both a left popliteal deep venous thrombosis as well as pulmonary embolism. Because of the relative contraindication anticoagulation the patient is offered IVC filter. Description of Procedure: Patient was brought to the cardiac cath suite. Both groins were sterilely prepped and draped in usual manner. Utilizing ultrasound the right femoral vein was identified. This was found to be normally patent, compressible and free of visible thrombus. 1% Xylocaine was utilized for local anesthesia tissues overlying the femoral vein. Through this anesthetized area and with the aid of ultrasound micropuncture needle was utilized to cannulate the vein. Once cannu lated Softip guidewire was advanced into the vein. The needle was withdrawn and a micropuncture sheath and dilator advanced over the guidewire. Guidewire and dilator withdrawn and replaced with a 0.035 inch guidewire. 6-Yemeni sheath was then placed. Right iliac venogram and inferior venacavogram were performed. This demonstrated no evidence of iliac or caval thrombus in the cava measured less than 28 mm in greatest transverse diameter. Guidewire was readvanced through the 6-Yemeni sheath which was then exchanged for the filter sheath and dilator. The guidewire and dilator were withdrawn and through the sheath a Cook filter was advanced and then deployed at the L2-L3 interspace. Completion venogram demonstrated the filter be in good position. The sheath was withdrawn and pressure was held at the puncture site until all evidence of bleeding ceased. Patient tolerated procedure well. Total fluoroscopy time: 30 seconds.
[2023-05-22] MEDS: SODIUM CHLORIDE 0.9% 1,000 ML IV SCH ×2 (00:42→05:48)
[2023-05-22] MEDS: LACTATED RINGERS 1,000 ML IV SCH ×2 (00:42)
[2023-05-22] MEDS: PANTOPRAZOLE 40 MG/10 ML VIAL IVP SCH (08:13)
[2023-05-22 09:19] LABS: Anisocytosis Moderate; HCT 31.8 % (34.0-46.0); HGB 9.3 gm/dL (11.4-16.0); Hypochromasia Marked; MCH 21.8 pg (25.0-35.0); MCHC 29.1 g/dL (31.0-37.0); MCV 74.8 fL (80.0-100.0); Microcytosis Marked; Platelet Count 225 k/uL (150-450); Poikilocytosis Moderate; RBC 4.25 m/uL (3.80-5.40); RDW 22.3 % (11.5-15.5); WBC 10.7 k/uL (3.8-10.6)
[2023-05-22 09:46] LABS: ALT 16 U/L (4-34); AST 22 U/L (14-36); African American GFR (CKD) >90 (>60 ml/min/1.73 sqM); Alkaline Phosphatase 99 U/L (38-126); Anion Gap 8 mmol/L; Blood Urea Nitrogen 6 mg/dL (7-17); Calcium 8.7 mg/dL (8.4-10.2); Carbon Dioxide 22 mmol/L (22-30); Chloride 107 mmol/L (98-107); Glucose 157 mg/dL (74-99); Non-African American GFR(CKD) 84 (>60 ml/min/1.73 sqM); Potassium 3.7 mmol/L (3.5-5.1); Sodium 137 mmol/L (137-145); Total Bilirubin 0.4 mg/dL (0.2-1.3); Total Protein 5.9 g/dL (6.3-8.2)
--- NOTE | 2023-05-22 11:02 | XR ---
EXAMINATION TYPE: XR chest 1V portable DATE OF EXAM: 05/22/2023 10:46 AM CLINICAL INDICATION:Female, 83 years old with history of Dyspnea; [facility] COMPARISON: Chest radiographs from 05/09/2021 TECHNIQUE: XR chest 1V portable Frontal view of the chest. FINDINGS: Lungs/Pleura: No evidence of focal consolidation or pneumothorax. Increasing size of the blunting of the left costophrenic angle. The heart is enlarged. Pulmonary vascularity: Unremarkable. Heart/mediastinum: Cardiomediastinal silhouette is enlarged and stable. Musculoskeletal: No acute osseous pathology. IMPRESSION: Enlarging left pleural effusion with primarily correlate with serum BNP.
[2023-05-22] MEDS ORDERED: FUROSEMIDE 10 MG/ML 2 ML VIAL IV ONE (12:15)
[2023-05-22] MEDS: BENZONATATE 100 MG CAP PO PRN ×2 (12:30→19:45)
--- NOTE | 2023-05-22 12:34 | P.PN ---
Subjective Progress Note Date: 05/22/23 Principal diagnosis: GI bleed, pulmonary embolism. I am seeing this patient in consultation today 05/20/2023 after she was found to have multiple left sided segmental and subsegmental pulmonary emboli. Patient was actually admitted after she was found to be anemic by her primary care provider's office, and was sent to the emergency room two days ago. Patient is an 83-year-old white female with limited past medical history. Patient states that she has been very stressed, as her recently passed. She has been very fatigued and admits some exertional shortness of breath that started on Wednesday. Denies any fevers, chills, cough, chest pain, hemoptysis. Her hemogl obin level was found to be low on outpatient labs, and she was directed to the emergency room. Hemoglobin level at our facility was 5.9 g/dL. She was transfused 2 units PRBCs, and repeat hemoglobin level is up to 8.5 g/dL. She denies any GI bleeding. Denies any melena. Denies any nausea, vomiting, hematemesis. Denies any abdominal pain. Does not take any anticoagulants. Denies frequent NSAID use. Occasionally takes Aleve. Unsure of when her last colonoscopy was. Denies any recent trauma or surgery. Denies any prolonged travel. Denies any familial or personal history of blood clots. Denies history of malignancy. D-dimer was elevated at 3.07. A follow-up chest CTA was positive for pulmonary emboli on the left, moderate burden scattered throughout the lobar, segmental, and subsegmental branches of the lower lobe. No CT evidence of right heart strain. There was a small left pleural effusion with prominent patchy left basilar airspace disease. Consider developing pulmonary infarct versus atelectasis. Infectious process less likely. Patient denies any infectious symptoms. There is also a moderate to large hiatal hernia. Patient is currently lying in bed, on room air, in no acute distress. She is reportedly scheduled for a EGD/colonoscopy tomorrow. She is drinking GoLYTELY. No IV heparin was started, as an acute bleed has not been ruled out. Vascular services were consulted for possible IVC filter. Most recent CBC shows a WBC count of 9.6, hemoglobin 8.5, hematocrit 26.9, platelets 216. Coagulation profile within normal limits. CMP was unremarkable. Vital signs are stable. Progress note dated 05/21/2023. This is a 83-year-old female was admitted with a diagnosis of acute GI bleed, and was also discovered have a pulmonary embolism. The patient has a hemoglobin this morning of 8.2. She's on room air, and getting saline at 75 mL an hour. She had an EGD and colonoscopy today which revealed a gastric ulcer, hiatal hernia, gastritis, and extensive diverticulosis. She is apparently going for a inferior vena caval filter later today. She was very lethargic, from the medicine she received for her endoscopy. White count 9, hemoglobin 8.2, hemato crit 26.9, platelet count 224,000. Sodium 139, potassium 4, chlorides 107, CO2 21, BUN 5, and creatinine 0.62. Albumin is 2.8. Since admission, the patient has received 2 units of packed red blood cells. Progress note dated 05/22/2023. 83-year-old female admitted with a diagnosis of GI bleed, and was discovered also a pulmonary embolism. The patient had an EGD and colonoscopy, which revealed a gastric ulcer, that was not bleeding, hiatal hernia, gastritis, and diverticulosis. Yesterday, the patient had a IVC filter placed. Today, the patient's hemoglobin was 9.3. A chest x-ray was ordered because she was a bit more short of breath. Room air saturation was 94%. Chest x-ray showed a left- sided pleural effusion. Laboratory data from today shows a white count of 10.7, hemoglobin 9.3, hematocrit 31.8, and a platelet count of 225,000. Sodium 137, potassium 3.7, chlorides 107, CO2 22, BUN 6, creatinine 0.61. Glucose was 157. Albumin was 3. Objective - Vital Signs Vital signs: Vital Signs Temp 98.3 F 05/22/23 08:02 Pulse 71 05/22/23 11:16 Resp 20 05/22/23 11:16 BP 128/71 05/22/23 11:16 Pulse Ox 94 L 05/22/23 11:16 FiO2 Intake & Output 05/21/23 05/22/23 05/22/23 18:59 06:59 18:59 Intake Total 150 240 Balance 150 240 Intake: IV 150 Oral 240 Other: Voiding Method Toilet Toilet Toilet # Voids 1 1 2 - Exam No acute distress, oriented 3. Currently on room air. No respiratory dis tress. Currently on room air. Saturations 94%. HEENT examination is grossly unremarkable. Mucous membranes are moist. No oral lesions. Neck supple. Full range of motion. No adenopathy thyromegaly or neck vein distention. Cardiovascular examination reveals regular rhythm rate. S1-S2 normal. No S3 or S4. No discernible murmur noted. Heart rate 91. bpm. Lungs reveal clear breath sounds. Breath sounds are equal bilaterally. No adventitious lung sounds including wheezes rhonchi or crackles. Room air saturation is 94 %. Abdomen soft bowel sounds are heard. No masses or tenderness. Extremities are intact. No cyanosis clubbing or edema. Skin is without rash or lesion. Neurologic examination is brief but nonfocal. - Labs CBC & Chem 7: 05/22/23 08:59 05/22/23 08:59 Labs: Abnormal Lab Results - Last 24 Hours (Table) 05/22/23 05/22/23 Range/Units 08:59 08:59 WBC 10.7 H (3.8-10.6) k/uL Hgb 9.3 L (11.4-16.0) gm/dL Hct 31.8 L (34.0-46.0) % MCV 74.8 L (80.0-100.0) fL MCH 21.8 L (25.0-35.0) pg MCHC 29.1 L (31.0-37.0) g/dL RDW 22.3 H (11.5-15.5) % BUN 6 L (7-17) mg/dL Glucose 157 H (74-99) mg/dL Total Protein 5.9 L (6.3-8.2) g/dL Albumin 3.0 L (3.5-5.0) g/dL Assessment and Plan Assessment: Acute anemia, secondary to acute GI bleed, status post 2 units of PRBCs. Status post upper and lower endoscopy, with evidence of gastric ulcer, hiatal hernia, gastritis, and diverticulosis. S/P IVC filter, 05/21/2023. Acute hypoxemic respiratory failure secondary to pulmonary embolism. Small left pleural effusion. Moderate to large hiatal hernia. Plan: Plan dated 05/21/2023. The patient recently got back from her endoscopy. The findings included a gastric ulcer, hiatal hernia, gastritis, diverticulosis. The patient's hemoglobin today was 8.2. She's received a total of 2 units of PRBCs. Patient's on room air, and getting saline at 75 mL an hour. The patient will have an IVC filter placement later today by vascular surgery. Additional recommendations and suggestions are forthcoming. We will continue to follow make recommendations along the way. Prognosis is guarded. Plan dated 05/22/2023. The patient is a bit more short of breath, and the left sided pleural effusion is a bit larger. The patient's currently on room air, with saturations of 94%. The IVC filter was placed by vascular surgery yesterday. Additional recommendations and suggestions are forthcoming. Fluids will be discontinued. Additional recommendations and suggestions are forthcoming. We will continue to follow the patient, and make recommendations along the way. Today's hemoglobin was 9.3. Time with Patient: Less than 30
--- NOTE | 2023-05-22 13:38 | P.PN ---
Subjective Progress Note Date: 05/22/23 Patient was actually admitted after she was found to be anemic by her primary care provider's office, and was sent to the emergency room two days ago. Patient is an 83-year-old white female with limited past medical history. Patient states that she has been very stressed, as her recently passed. She has been very fatigued and admits some exertional shortness of breath that started on Wednesday. Denies any fevers, chills, cough, chest pain, hemoptysis. Her hemoglobin level was found to be low on outpatient labs, and she was directed to the emergency room. Hemoglobin level at our facility was 5.9 g/dL. She was transfused 2 units PRBCs, and repeat hemoglobin level is up to 8.5 g/dL. She denies any GI bleeding. Denies any melena. Denies any nausea, vomiting, hematemesis. Denies any abdominal pain. Does not take any anticoagulants. Denies frequent NSAID use. Occasionally takes Aleve. Unsure of when her last colonoscopy was. Denies any recent trauma or surgery. Denies any prolonged travel. Denies any familial or personal history of blood clots. Denies history of malignancy. D-dimer was elevated at 3.07. A follow-up chest CTA was positive for pulmonary emboli on the left, moderate burden scattered throughout the lobar, segmental, and subsegmental branches of the lower lobe. No CT evidence of right heart strain. There was a small left pleural effusion with prominent patchy left basilar airspace disease. Consider developing pulmonary infarct versus atelectasis. Infectious process less likely. Patient denies any infectious symptoms. There is also a moderate to large hiatal hernia. Patient is currently lying in bed, on room air, in no acute distress. She is reportedly scheduled for a EGD/colonoscopy tomorrow. She is drinking GoLYTELY. No IV heparin was started, as an acute bleed has not been ruled out. Vascular services were consulted for possible IVC filter. Most recent CBC shows a WBC count of 9.6, hemoglobin 8.5, hematocrit 26.9, platelets 216. Coagulation profile within normal limits. CMP was unremarkable. Vital signs are stable. She had an EGD and colonoscopy which revealed a gastric ulcer, hiatal hernia, gastritis, and extensive diverticulosis. She is apparently going for a inferior vena caval filter later today 05/22. Dr. ali took over care. Patient seen and examined. Patient underwent IVC filter placement yesterday by vascular surgery. Lab work done this morning showed WBC 10.7, hemoglobin 9.3, platelet count 225, sodium 139 potassium 3.7, BUN 6, creatinine 0.61. Complaining of cough. Gets short of breath on exertion. REVIEW OF SYSTEMS: CONSTITUTIONAL: No fever, no malaise,. CARDIOVASCULAR: No chest pain, no palpitations, no syncope. PULMONARY: As mentioned above, GASTROINTESTINAL: No diarrhea, no nausea, no vomiting, no abdominal pain. NEUROLOGICAL: No headaches, no weakness, PHYSICAL EXAMINATION: GENERAL: The patient is alert and oriented x3, not in any acute distress. Well developed, well nourished. HEENT: Pupils are round and equally reacting to light. EOMI. No scleral icterus. No conjunctival pallor. Normocephalic, atraumatic. No pharyngeal erythema. No thyromegaly. CARDIOVASCULAR: S1 and S2 present. No murmurs, rubs, or gallops. PULMONARY: Diminished breath sounds at left lung base, crackles audible ABDOMEN: Soft, nontender, nondistended, normoactive bowel sounds. No palpable organomegaly. MUSCULOSKELETAL: No joint swelling or deformity. EXTREMITIES: No cyanosis, clubbing, or pedal edema. NEUROLOGICAL: Gross neurological examination did not reveal any focal deficits. SKIN: No rashes. Assessment and plan Acute hypoxemic respiratory failure Pulmonary embolism Acute Blood loss anemia GI bleed Gastric ulcer Gastritis Hiatal hernia Monitor vital signs Monitor CBC Monitor CMP Continue telemetry monitoring Encourage use of incentive spirometer Continue IV Protonix Continue antiemetics Patient IVC filter placed yesterday Chest x-ray noted, shows left pleural effusion, ordered 1 dose of IV Lasix GI recommended continuation of Protonix at discharge. Pulmonology following Labs and medication were reviewed.. Continue same treatment. Continue with sym ptomatic treatment. Resume home medication. Monitor labs and vitals. DVT and GI prophylaxis. Further recommendations as per clinical course of the patient Dictation was produced using [employer] dictation software. please excuse any grammatical, word or spelling errors. Objective - Vital Signs Vital signs: Vital Signs Temp 98.3 F 05/22/23 08:02 Pulse 78 05/22/23 08:02 Resp 20 05/22/23 08:02 BP 159/80 05/22/23 08:02 Pulse Ox 91 L 05/22/23 08:02 FiO2 Intake & Output 05/21/23 05/22/23 05/22/23 18:59 06:59 18:59 Intake Total 150 240 Balance 150 240 Intake: IV 150 Oral 240 Other: Voiding Method Toilet Toilet Toilet # Voids 1 1 - Labs CBC & Chem 7: 05/22/23 08:59 05/22/23 08:59 Labs: Abnormal Lab Results - Last 24 Hours (Table) 05/22/23 05/22/23 Range/Units 08:59 08:59 WBC 10.7 H (3.8-10.6) k/uL Hgb 9.3 L (11.4-16.0) gm/dL Hct 31.8 L (34.0-46.0) % MCV 74.8 L (80.0-100.0) fL MCH 21.8 L (25.0-35.0) pg MCHC 29.1 L (31.0-37.0) g/dL RDW 22.3 H (11.5-15.5) % BUN 6 L (7-17) mg/dL Glucose 157 H (74-99) mg/dL Total Protein 5.9 L (6.3-8.2) g/dL Albumin 3.0 L (3.5-5.0) g/dL
[2023-05-23] MEDS: ACETAMINOPHEN TAB 325 MG TAB PO PRN ×3 (03:33→18:52)
[2023-05-23] MEDS: PANTOPRAZOLE 40 MG/10 ML VIAL IVP SCH (07:21)
--- NOTE | 2023-05-23 10:36 | P.PN ---
Subjective Progress Note Date: 05/23/23 Principal diagnosis: GI bleed, pulmonary embolism. I am seeing this patient in consultation today 05/20/2023 after she was found to have multiple left sided segmental and subsegmental pulmonary emboli. Patient was actually admitted after she was found to be anemic by her primary care provider's office, and was sent to the emergency room two days ago. Patient is an 83-year-old white female with limited past medical history. Patient states that she has been very stressed, as her recently passed. She has been very fatigued and admits some exertional shortness of breath that started on Wednesday. Denies any fevers, chills, cough, chest pain, hemoptysis. Her hemogl obin level was found to be low on outpatient labs, and she was directed to the emergency room. Hemoglobin level at our facility was 5.9 g/dL. She was transfused 2 units PRBCs, and repeat hemoglobin level is up to 8.5 g/dL. She denies any GI bleeding. Denies any melena. Denies any nausea, vomiting, hematemesis. Denies any abdominal pain. Does not take any anticoagulants. Denies frequent NSAID use. Occasionally takes Aleve. Unsure of when her last colonoscopy was. Denies any recent trauma or surgery. Denies any prolonged travel. Denies any familial or personal history of blood clots. Denies history of malignancy. D-dimer was elevated at 3.07. A follow-up chest CTA was positive for pulmonary emboli on the left, moderate burden scattered throughout the lobar, segmental, and subsegmental branches of the lower lobe. No CT evidence of right heart strain. There was a small left pleural effusion with prominent patchy left basilar airspace disease. Consider developing pulmonary infarct versus atelectasis. Infectious process less likely. Patient denies any infectious symptoms. There is also a moderate to large hiatal hernia. Patient is currently lying in bed, on room air, in no acute distress. She is reportedly scheduled for a EGD/colonoscopy tomorrow. She is drinking GoLYTELY. No IV heparin was started, as an acute bleed has not been ruled out. Vascular services were consulted for possible IVC filter. Most recent CBC shows a WBC count of 9.6, hemoglobin 8.5, hematocrit 26.9, platelets 216. Coagulation profile within normal limits. CMP was unremarkable. Vital signs are stable. Progress note dated 05/21/2023. This is a 83-year-old female was admitted with a diagnosis of acute GI bleed, and was also discovered have a pulmonary embolism. The patient has a hemoglobin this morning of 8.2. She's on room air, and getting saline at 75 mL an hour. She had an EGD and colonoscopy today which revealed a gastric ulcer, hiatal hernia, gastritis, and extensive diverticulosis. She is apparently going for a inferior vena caval filter later today. She was very lethargic, from the medicine she received for her endoscopy. White count 9, hemoglobin 8.2, hemato crit 26.9, platelet count 224,000. Sodium 139, potassium 4, chlorides 107, CO2 21, BUN 5, and creatinine 0.62. Albumin is 2.8. Since admission, the patient has received 2 units of packed red blood cells. Progress note dated 05/22/2023. 83-year-old female admitted with a diagnosis of GI bleed, and was discovered also a pulmonary embolism. The patient had an EGD and colonoscopy, which revealed a gastric ulcer, that was not bleeding, hiatal hernia, gastritis, and diverticulosis. Yesterday, the patient had a IVC filter placed. Today, the patient's hemoglobin was 9.3. A chest x-ray was ordered because she was a bit more short of breath. Room air saturation was 94%. Chest x-ray showed a left- sided pleural effusion. Laboratory data from today shows a white count of 10.7, hemoglobin 9.3, hematocrit 31.8, and a platelet count of 225,000. Sodium 137, potassium 3.7, chlorides 107, CO2 22, BUN 6, creatinine 0.61. Glucose was 157. Albumin was 3. Progress note dated 05/23/2023. 83-year-old female admitted with a diagnosis of gastrointestinal bleed, who was subsequently discovered to have a pulmonary embolism. For that reason the patient cannot be anticoagulated, and had an IVC filter placed. Prior to that, the patient had an EGD and colonoscopy, which revealed a gastric ulcer, that was not bleeding, hiatal hernia, gastritis, and diverticulosis. Currently, the patient is resting comfortably in room 367. She's not receiving any supplemental oxygen, or IV fluids. No new labs today. She is hoping to be discharged soon. Objective - Vital Signs Vital signs: Vital Signs Temp 98.1 F 05/23/23 07:17 Pulse 71 05/23/23 07:17 Resp 20 05/23/23 07:17 BP 144/78 05/23/23 07:17 Pulse Ox 94 L 05/23/23 07:17 FiO2 Intake & Output 05/22/23 05/23/23 05/23/23 18:59 06:59 18:59 Intake Total 600 10 240 Output Total 2225 900 Balance -1625 -890 240 Intake: IV 10 Invasive Line 3 10 Oral 600 240 Output: Urine 2225 900 Other: Voiding Method Toilet Toilet Toilet Bedside Commode Bedside Commode Bedside Commode # Voids 2 - Exam No acute distress, oriented 3. Currently on room air. No respiratory distress. Currently on room air. Saturations 94%. HEENT examination is grossly unremarkable. Mucous membranes are moist. No oral lesions. Neck supple. Full range of motion. No adenopathy thyromegaly or neck vein distention. Cardiovascular examination reveals regular rhythm rate. S1-S2 normal. No S3 or S4. No discernible murmur noted. Heart rate 71 bpm. Lungs reveal clear breath sounds. Breath sounds are equal bilaterally. No adventitious lung sounds including wheezes rhonchi or crackles. Room air saturation is 94 %. Abdomen soft bowel sounds are heard. No masses or tenderness. Extremities are intact. No cyanosis clubbing or edema. Skin is without rash or lesion. Neurologic examination is brief but nonfocal. - Labs CBC & Chem 7: 05/22/23 08:59 05/22/23 08:59 Assessment and Plan Assessment: Acute anemia, secondary to acute GI bleed, status post 2 units of PRBCs. Status post upper and lower endoscopy, with evidence of gastric ulcer, hiatal hernia, gastritis, and diverticulosis. S/P IVC filter, 05/21/2023. Acute hypoxemic respiratory failure secondary to pulmonary embolism. Small left pleural effusion. Moderate to large hiatal hernia. Plan: Plan dated 05/21/2023. The patient recently got back from her endoscopy. The findings included a gastric ulcer, hiatal hernia, gastritis, diverticulosis. The patient's hemoglobin today was 8.2. She's received a total of 2 units of PRBCs. Patient's on room air, and getting saline at 75 mL an hour. The patient will have an IVC filter placement later today by vascular surgery. Additional recommendations and suggestions are forthcoming. We will continue to follow make recommendations along the way. Prognosis is guarded. Plan dated 05/22/2023. The patient is a bit more short of breath, and the left sided pleural effusion i s a bit larger. The patient's currently on room air, with saturations of 94%. The IVC filter was placed by vascular surgery yesterday. Additional recommendations and suggestions are forthcoming. Fluids will be discontinued. Additional recommendations and suggestions are forthcoming. We will continue to follow the patient, and make recommendations along the way. Today's hemoglobin was 9.3. Plan dated 05/23/2023. From the pulmonary perspective, the patient's doing well. The patient's on room air. She had an IVC filter placed. Her hemoglobin has been stable. The patient denies any shortness of breath, cough, wheezing, chest tightness, or phlegm production. Likewise, she denies any chest pain or pressure. Labs, x- rays, and medications are reviewed. Prognosis is guarded. The patient will need a repeat CT angiogram in about 10-12 weeks. Time with Patient: Less than 30
[2023-05-23 12:03] LABS: Anisocytosis Moderate; Basophils # (A) 0.1 k/uL (0-0.2); Basophils % (A) 1 %; Eosinophils # (A) 0.3 k/uL (0-0.7); Eosinophils % (A) 3 %; HCT 32.1 % (34.0-46.0); HGB 9.8 gm/dL (11.4-16.0); Hypochromasia Marked; Lymphocytes # (A) 0.7 k/uL (1.0-4.8); Lymphocytes % (A) 7 %; MCHC 30.4 g/dL (31.0-37.0); MCV 72.2 fL (80.0-100.0); Mean Platelet Volume 6.5; Microcytosis Marked; Monocytes # (A) 0.8 k/uL (0-1.0); Monocytes % (A) 8 %; Neutrophils # (A) 8.2 k/uL (1.3-7.7); Neutrophils % (A) 80 %; Platelet Count 274 k/uL (150-450); Poikilocytosis Moderate; RBC 4.45 m/uL (3.80-5.40); RDW 22.8 % (11.5-15.5); WBC 10.2 k/uL (3.8-10.6)
--- NOTE | 2023-05-23 12:58 | P.PN ---
Subjective Progress Note Date: 05/23/23 Patient was actually admitted after she was found to be anemic by her primary care provider's office, and was sent to the emergency room two days ago. Patient is an 83-year-old white female with limited past medical history. Patient states that she has been very stressed, as her recently passed. She has been very fatigued and admits some exertional shortness of breath that started on Wednesday. Denies any fevers, chills, cough, chest pain, hemoptysis. Her hemoglobin level was found to be low on outpatient labs, and she was directed to the emergency room. Hemoglobin level at our facility was 5.9 g/dL. She was transfused 2 units PRBCs, and repeat hemoglobin level is up to 8.5 g/dL. She denies any GI bleeding. Denies any melena. Denies any nausea, vomiting, hematemesis. Denies any abdominal pain. Does not take any anticoagulants. Denies frequent NSAID use. Occasionally takes Aleve. Unsure of when her last colonoscopy was. Denies any recent trauma or surgery. Denies any prolonged travel. Denies any familial or personal history of blood clots. Denies history of malignancy. D-dimer was elevated at 3.07. A follow-up chest CTA was positive for pulmonary emboli on the left, moderate burden scattered throughout the lobar, segmental, and subsegmental branches of the lower lobe. No CT evidence of right heart strain. There was a small left pleural effusion with prominent patchy left basilar airspace disease. Consider developing pulmonary infarct versus atelectasis. Infectious process less likely. Patient denies any infectious symptoms. There is also a moderate to large hiatal hernia. Patient is currently lying in bed, on room air, in no acute distress. She is reportedly scheduled for a EGD/colonoscopy tomorrow. She is drinking GoLYTELY. No IV heparin was started, as an acute bleed has not been ruled out. Vascular services were consulted for possible IVC filter. Most recent CBC shows a WBC count of 9.6, hemoglobin 8.5, hematocrit 26.9, platelets 216. Coagulation profile within normal limits. CMP was unremarkable. Vital signs are stable. She had an EGD and colonoscopy which revealed a gastric ulcer, hiatal hernia, gastritis, and extensive diverticulosis. She is apparently going for a inferior vena caval filter later today 05/22. Dr. ali took over care. Patient seen and examined. Patient underwent IVC filter placement yesterday by vascular surgery. Lab work done this morning showed WBC 10.7, hemoglobin 9.3, platelet count 225, sodium 139 potassium 3.7, BUN 6, creatinine 0.61. Complaining of cough. Gets short of breath on exertion. 05/23. Patient seen and examined. Patient was trying to be discharged but later in the afternoon, patient started complaining of shortness of breath, her pulse ox was good. Denied any chest pain. No complaints of swelling of feet. REVIEW OF SYSTEMS: CONSTITUTIONAL: No fever, no malaise,. CARDIOVASCULAR: No chest pain, no palpitations, no syncope. PULMONARY: As mentioned above, GASTROINTESTINAL: No diarrhea, no nausea, no vomiting, no abdominal pain. NEUROLOGICAL: No headaches, no weakness, PHYSICAL EXAMINATION: GENERAL: The patient is alert and oriented x3, not in any acute distress. Well developed, well nourished. HEENT: Pupils are round and equally reacting to light. EOMI. No scleral icterus. No conjunctival pallor. Normocephalic, atraumatic. No pharyngeal erythema. No thyromegaly. CARDIOVASCULAR: S1 and S2 present. No murmurs, rubs, or gallops. PULMONARY: Diminished breath sounds at left lung base, crackles audible ABDOMEN: Soft, nontender, nondistended, normoactive bowel sounds. No palpable organomegaly. MUSCULOSKELETAL: No joint swelling or deformity. EXTREMITIES: No cyanosis, clubbing, or pedal edema. NEUROLOGICAL: Gross neurological examination did not reveal any focal deficits. SKIN: No rashes. Assessment and plan Acute hypoxemic respiratory failure Pulmonary embolism Acute Blood loss anemia GI bleed Gastric ulcer Gastritis Hiatal hernia Monitor vital signs Monitor CBC Monitor CMP Continue telemetry monitoring Encourage use of incentive spirometer Ordered stat chest x-ray, troponin and proBNP Continue IV Protonix Continue antiemetics Patient IVC filter placed 05/21 GI recommended continuation of Protonix at discharge. Pulmonology following Discharge postponed till tomorrow Labs and medication were reviewed.. Continue same treatment. Continue with symptomatic treatment. Resume home medication. Monitor labs and vitals. DVT and GI prophylaxis. Further recommendations as per clinical course of the patient Dictation was produced using [employer] dictation software. please excuse any grammatical, word or spelling errors. Objective - Vital Signs Vital signs: Vital Signs Temp 98.1 F 05/23/23 07:17 Pulse 71 05/23/23 07:17 Resp 20 05/23/23 07:17 BP 144/78 05/23/23 07:17 Pulse Ox 94 L 05/23/23 07:17 FiO2 Intake & Output 05/22/23 05/23/23 05/23/23 18:59 06:59 18:59 Intake Total 600 10 240 Output Total 2225 900 Balance -1625 -890 240 Intake: IV 10 Invasive Line 3 10 Oral 600 240 Output: Urine 2225 900 Other: Voiding Method Toilet Toilet Toilet Bedside Commode Bedside Commode Bedside Commode # Voids 2 - Labs CBC & Chem 7: 05/23/23 11:21 05/22/23 08:59
[2023-05-23] MEDS: guaiFENesin 600 MG TABLET.ER PO SCH ×2 (13:17→20:09)
--- NOTE | 2023-05-23 13:33 | XR ---
EXAMINATION TYPE: XR chest 1V DATE OF EXAM: 05/23/2023 COMPARISON: 05/22/2023 HISTORY: 83 year-old female shortness of breath, dyspnea TECHNIQUE: Single frontal view of the chest is obtained. FINDINGS: Heart remains borderline in size. Underlying [id number] left pleural effusion with left basilar opacity. IMPRESSION: Similar [id number] left pleural effusion with adjacent atelectasis and/or consolid ation.
[2023-05-24] MEDS: ACETAMINOPHEN TAB 325 MG TAB PO PRN ×2 (04:11→09:16)
[2023-05-24] MEDS: guaiFENesin 600 MG TABLET.ER PO SCH (09:16)
[2023-05-24] MEDS: PANTOPRAZOLE 40 MG/10 ML VIAL IVP SCH (09:16)
[2023-05-24 09:32] VITALS: BP 150/68; PULSE 86; RESP 17; TEMP 97.8
[2023-05-24 10:02] LABS: Anisocytosis Moderate; Basophils # (A) 0.1 k/uL (0-0.2); Basophils % (A) 1 %; Eosinophils # (A) 0.4 k/uL (0-0.7); Eosinophils % (A) 4 %; HCT 29.2 % (34.0-46.0); HGB 9.1 gm/dL (11.4-16.0); Hypochromasia Marked; Lymphocytes # (A) 0.7 k/uL (1.0-4.8); Lymphocytes % (A) 7 %; MCH 22.4 pg (25.0-35.0); MCHC 31.3 g/dL (31.0-37.0); MCV 71.7 fL (80.0-100.0); Mean Platelet Volume 8.6; Microcytosis Marked; Monocytes # (A) 0.7 k/uL (0-1.0); Monocytes % (A) 7 %; Neutrophils # (A) 7.8 k/uL (1.3-7.7); Neutrophils % (A) 79 %; Platelet Count 269 k/uL (150-450); Poikilocytosis Moderate; RBC 4.08 m/uL (3.80-5.40); WBC 9.8 k/uL (3.8-10.6)
--- NOTE | 2023-05-24 10:19 | P.DS ---
Providers Date of admission: 05/18/23 14:45 Expected date of discharge: 05/24/23 Attending physician: Kiko Flores Consults: 05/18/23 14:10 Consult Physician Routine Consulting Provider: Marilu Saucedo Consult Reason/Comments: gib Do you want consulting provider notified?: Yes 05/19/23 19:30 Consult Physician Routine Consulting Provider: Leoncio Peoples Consult Reason/Comments: postivie PE Do you want consulting provider notified?: Yes 05/19/23 19:44 Consult Physician Routine Consulting Provider: Crow Krause Consult Reason/Comments: IVC filter Do you want consulting provider notified?: Yes, Notify in am Primary care physician: Kiko Flores Hospital Course: Discharge diagnoses; Acute hypoxemic respiratory failure Pulmonary embolism Acute Blood loss anemia GI bleed Gastric ulcer Gastritis Hiatal hernia Hospital course; Patient was actually admitted after she was found to be anemic by her primary care provider's office, and was sent to the emergency room two days ago. Patient is an 83-year-old white female with limited past medical history. Patient states that she has been very stressed, as her recently passed. She has been very fatigued and admits some exertional shortness of breath that started on Wednesday. Denies any fevers, chills, cough, chest pain, hemoptysis. Her hemoglobin level was found to be low on outpatient labs, and she was directed to the emergency room. Hemoglobin level at our facility was 5.9 g/dL. She was transfused 2 units PRBCs, and repeat hemoglobin level is up to 8.5 g/dL. She denies any GI bleeding. Denies any melena. Denies any nausea, vomiting, hematemesis. Denies any abdominal pain. Does not take any anticoagulants. Denies frequent NSAID use. Occasionally takes Aleve. Unsure of when her last colonoscopy was. Denies any recent trauma or surgery. Denies any prolonged travel. Denies any familial or personal history of blood clots. Denies history of malignancy. D-dimer was elevated at 3.07. A follow-up chest CTA was positive for pulmonary emboli on the left, moderate burden scattered throughout the lobar, segmental, and subsegmental branches of the lower lobe. No CT evidence of right heart strain. There was a small left pleural effusion with prominent patchy left basilar airspace disease. Consider developing pulmonary infarct versus atelectasis. Infectious process less likely. Patient denies any infectious symptoms. There is also a moderate to large hiatal hernia. Patient is currently lying in bed, on room air, in no acute distress. She is reportedly scheduled for a EGD/colonoscopy tomorrow. She is drinking GoLYTELY. No IV heparin was started, as an acute bleed has not been ruled out. Vascular services were consulted for possible IVC filter. Most recent CBC shows a WBC count of 9.6, hemoglobin 8.5, hematocrit 26.9, platelets 216. Coagulation profile within normal limits. CMP was unremarkable. Vital signs are stable. She had an EGD and colonoscopy which revealed a gastric ulcer, hiatal hernia, gastritis, and extensive diverticulosis. She is apparently going for a inferior vena caval filter later today 05/22. Dr. cardenas took over care. Patient seen and examined. Patient underwent IVC filter placement yesterday by vascular surgery. Lab work done this morning showed WBC 10.7, hemoglobin 9.3, platelet count 225, sodium 139 potassium 3.7, BUN 6, creatinine 0.61. Complaining of cough. Gets short of breath on exertion. 05/23. Patient seen and examined. Patient was trying to be discharged but later in the afternoon, patient started complaining of shortness of breath, her pulse ox was good. Denied any chest pain. No complaints of swelling of feet. 05/24. Patient seen and examined. Hemoglobin remained stable being discharged on oral protonix 40 mg twice a day. Discussed with patient and patient's daughter regarding the timing of starting oral anticoagulation, at this time family is hesitant and also keeping in mind GI bleed, risks versus benefits of patient being on on anticoagulation were analyzed and discussed with patient. Discussed with patient and daughter in detail regarding the need for them to have a discussion with their PCP regarding starting anticoagulation. Patient and patient's daughter understand all instructions. PHYSICAL EXAMINATION: GENERAL: The patient is alert and oriented x3, not in any acute distress. Well developed, well nourished. HEENT: Pupils are round and equally reacting to light. EOMI. No scleral icterus. No conjunctival pallor. Normocephalic, atraumatic. No pharyngeal erythema. No thyromegaly. CARDIOVASCULAR: S1 and S2 present. No murmurs, rubs, or gallops. PULMONARY: Chest is clear to auscultation, no wheezing or crackles. ABDOMEN: Soft, nontender, nondistended, normoactive bowel sounds. No palpable organomegaly. MUSCULOSKELETAL: No joint swelling or deformity. EXTREMITIES: No cyanosis, clubbing, or pedal edema. NEUROLOGICAL: Gross neurological examination did not reveal any focal deficits. SKIN: No rashes. Dictation was produced using [employer] dictation software. please excuse any g rammatical, word or spelling errors. Patient Condition at Discharge: Fair Plan - Discharge Summary Discharge Rx Participant: Yes New Discharge Prescriptions: New Pantoprazole Sodium [Protonix] 40 mg PO BID 30 Days #60 tab guaiFENesin [Mucinex] 600 mg PO Q12HR 7 Days #14 tab Discharge Medication List Pantoprazole Sodium [Protonix] 40 mg PO BID 30 Days #60 tab 05/24/23 [Rx] guaiFENesin [Mucinex] 600 mg PO Q12HR 7 Days #14 tab 05/24/23 [Rx] Follow up Appointment(s)/Referral(s): Kiko Flores MD [Primary Care Provider] - 1-2 days (Office closed at this time; please call [facility] Wednesday to schedule follow up appointment.) Marilu Saucedo MD [STAFF PHYSICIAN] - 2 Weeks (Call office for biopsy results. Please call [facility] on Wednesday to schedule follow up appointment.) Jose Fitch DO [Doctor of Osteopathic Medicine] - 1 Week Patient Instructions/Handouts: Pulmonary Embolism (DC), Gastrointestinal Bleeding (DC), Deep Vein Thrombosis (DC) Discharge Disposition: HOME SELF-CARE
--- NOTE | 2023-05-24 12:20 | PN ---
PROGRESS NOTE DATE OF SERVICE: 05/24/2023 PULMONARY/CRITICAL CARE PROGRESS NOTE: SUBJECTIVE: This is an 83-year-old female, who was admitted with a diagnosis of GI bleed, and subsequently, was discovered to have a pulmonary embolism. For that reason, the patient could not be anticoagulated, and she had an IVC filter placed. Currently, she is resting comfortably in room 367. She is on room air. She is not receiving any IV fluids. I did explain to the patient and the patient's family today that the patient will need a followup CT angiogram, in about 8 to 10 weeks. Clinically, the patient is doing relatively well. She did have an EGD and colonoscopy, which revealed a gastric ulcer, that was not bleeding, hiatal hernia, gastritis, and diffuse diverticulosis. PHYSICAL EXAMINATION: VITAL SIGNS: Current vital signs include a temperature 97.8, heart rate 86, respiratory rate 17, blood pressure 150/68, mean 95, and room air saturation 96%. The patient appears in no acute distress. HEENT: Grossly unremarkable. NECK: Supple. Full range of motion. No adenopathy. Neck veins are flat. CARDIOVASCULAR: Reveals regular rhythm and rate. Heart sounds are distant. Heart rate 86 beats per minute. S1, S2 normal. LUNGS: Clear. Breath sounds are equal. No wheezes, rhonchi, or crackles. ABDOMEN: Soft. Bowel sounds are heard. EXTREMITIES: Intact. No cyanosis, clubbing, or edema. SKIN: Without rash. NEUROLOGIC: Nonfocal. LABORATORY DATA: Labs today include a white count 9.8, hemoglobin 9.1, hematocrit 29.2, and a platelet count of 269,000. ASSESSMENT: 1. Acute anemia, secondary to an acute gastrointestinal bleed, status post 2 units of packed red blood cells. 2. Status post upper and lower endoscopy, with evidence of gastric ulcer, not bleeding, hiatal hernia, gastritis, and diverticulosis. Status post IVC filter, May 21, 2023. 3. Acute hypoxemic respiratory failure secondary to pulmonary embolism. 4. Small left pleural effusion. 5. Moderate to large hiatal hernia. PLAN: The patient could be discharged later today. Additional recommendations and suggestions are forthcoming. The patient will follow with me in the office, and will need a CT angiogram in about 8 to 10 weeks and after her first CT angiogram. The patient did have a filter placed. No additional recommendations are made. Prognosis is guarded. MMODL / IJN: [id number] /
--- NOTE | 2023-05-27 08:25 | CDI ---
Documentation Clarification Form Date: 05/27/23 From: Jennyfer Caballero Admit Date: 05/18/2023 02:45:00 PM Patient Name: Tamra Vargas Visit Number: [id number] Discharge Date: 05/24/2023 11:10:00 AM ATTENTION: The Clinical Documentation Specialists (CDI) and [facility] Coding Staff appreciate your assistance in clarifying documentation. Please respond to the clarification below the line at the bottom and electronically sign. The CDI & [facility] Coding staff will review the response and follow-up if needed. Please note: Queries are made part of the Legal Health Record. If you have any questions, please contact the author of this message via ITS. Dr. Ihsan Machado, GI bleed is documented in the ED Note and H&P. Additional clarification regarding the etiology of the GI bleed is requested. History/risk factors: COPD & emphysema Clinical Indicators: The patient was admitted forshortness of breathfound to have hemoglobin of 5 and requiringtransfusion. GI bleedis admitted diagnosis. EGD/colonoscopy performed and findings: 1.Upperendoscopyrevealed 1 cm clean-based lineargastric ulcerin the proximal body the stomach along the diaphragmatic hiatusstatus postbiopsy, moderate sizehiatal herniaand mild antralgastritis. 2.Colonoscopyrevealed extensive left sideddiverticulosisbut no evidence of colorectal neoplasia Labs: H&H 5.9/19.7 Treatment: EGD w bx & colonoscopy, transfusion 2 units of PRBCs Please clarify the etiology of the GI bleed, if known: [ ] GIB due to gastritis [ x ] GIB due to gastric ulcer [ ] GIB due to diverticular disease [ ] GIB, etiology unknown [ ] Other, please specify [ ] Unable to determine MTDD
== END 2023-05-24 11:10 | disposition home or self-care (01) | DRG 377 ==
LOC: EC 11:42 → 3SCARD 14:45
PROVIDERS: ADMIT Family Medicine; ATTEND Family Medicine
PROC: 30233N1 Transfusion of Nonautologous Red Blood Cells into Peripheral Vein, Percutaneous Approach (ICD-10-PCS; 2023-05-18)
PROC: B51F1ZZ Fluoroscopy of Right Pelvic (Iliac) Veins using Low Osmolar Contrast (ICD-10-PCS; principal; 2023-05-21 07:00)
PROC: 06H03DZ Insertion of Intraluminal Device into Inferior Vena Cava, Percutaneous Approach (ICD-10-PCS; principal; 2023-05-21 07:00)
PROC: B5191ZZ Fluoroscopy of Inferior Vena Cava using Low Osmolar Contrast (ICD-10-PCS; principal; 2023-05-21 07:00)
PROC: 0DJD8ZZ Inspection of Lower Intestinal Tract, Via Natural or Artificial Opening Endoscopic (ICD-10-PCS; 2023-05-21 07:00)
PROC: 0DB98ZX Excision of Duodenum, Via Natural or Artificial Opening Endoscopic, Diagnostic (ICD-10-PCS; 2023-05-21 07:00)
PROC: 0DB78ZX Excision of Stomach, Pylorus, Via Natural or Artificial Opening Endoscopic, Diagnostic (ICD-10-PCS; 2023-05-21 07:00)
DX: K25.4 Chronic or unspecified gastric ulcer with hemorrhage (principal); I26.94 Multiple subsegmental thrombotic pulmonary emboli without acute cor pulmonale; J96.01 Acute respiratory failure with hypoxia; I82.431 Acute embolism and thrombosis of right popliteal vein; D62 Acute posthemorrhagic anemia; J90 Pleural effusion, not elsewhere classified; E86.0 Dehydration; J43.9 Emphysema, unspecified; J44.9 Chronic obstructive pulmonary disease, unspecified; Z28.310 Unvaccinated for COVID-19; K29.70 Gastritis, unspecified, without bleeding; K44.9 Diaphragmatic hernia without obstruction or gangrene; K57.30 Diverticulosis of large intestine without perforation or abscess without bleeding; D50.9 Iron deficiency anemia, unspecified
CPT/HCPCS: 36415; 36430; 37191; 43239; 45378; 71045; 71275; 80053; 83735; 83880; 84100; 84484; 85025; 85027; 85379; 85610; 85730; 86850; 86900; 86901; 86920; 88305; 88342; 93005; 93970; 96365; 96366; 99291

== ENCOUNTER 2023-05-28 14:54 | Inpatient (IN) | payer MEDICARE ==
[2023-05-28] MEDS ORDERED: SODIUM CHLORIDE 0.9% 1,000 ML IV STA ×2 (16:36→17:58)
--- NOTE | 2023-05-28 16:43 | ED ---
Dizziness HPI - General Chief Complaint: Dizziness Stated Complaint: Weakness Time Seen by Provider: 05/28/23 16:36 Source: patient, RN notes reviewed, old records reviewed, Caregiver Mode of arrival: wheelchair Limitations: no limitations - History of Present Illness Initial Comments: This is an 83-year-old female to the emergency department for evaluation of severe weakness. Patient presents to the ER today for evaluation regards to severe weakness increasing weakness decreased activity level some shortness of breath recent diagnosis of DVT PE was severe right lower Shorty pain and decreased activity level. Does severe dizziness and shortness of breath on exertion. Her main complaint today is dizziness all family states her activity level is severely diminished. Patient's main complaint is also the dizziness and feeling like she may pass out MD Complaint: dizziness, lightheadedness -: days(s) Timing: gradual onset Description: lightheadedness, near-syncope History of Same: Yes History of Trauma: No Severity: moderate Improves With: remaining still Worsens With: nothing Associated Symptoms: denies other symptoms - Related Data Previous Rx's Medication Instructions Recorded Pantoprazole Sodium [Protonix] 40 mg PO BID 30 Days #60 tab 05/24/23 guaiFENesin [Mucinex] 600 mg PO Q12HR 7 Days #14 tab 05/24/23 Apixaban [Eliquis] 5 mg PO BID #60 tab 06/02/23 Ferric Citrate [Auryxia] 210 mg PO DAILY 30 Days #30 tablet 06/03/23 Allergies Allergy/AdvReac Type Severity Reaction Status Date / Time No Known Allergies Allergy Verified 05/28/23 18:29 Review of Systems ROS Statement: Those systems with pertinent positive or pertinent negative responses have been documented in the HPI. ROS Other: All systems not noted in ROS Statement are negative. Past Medical History Past Medical History: GI Bleed, Pulmonary Embolus (PE) History of Any Multi-Drug Resistant Organisms: None Reported Past Surgical History: No Surgical Hx Reported Additional Past Surgical History / Comment(s): beryl to lt arm removed Past Anesthesia/Blood Transfusion Reactions: No Reported Reaction Past Psychological History: No Psychological Hx Reported Smoking Status: Never smoker Past Alcohol Use History: Occasional Past Drug Use History: None Reported - Past Family History Mother Family Medical History: Rheumatoid Arthritis (RA) Father Family Medical History: COPD General Exam Limitations: no limitations General appearance: alert, anxious, lethargic Head exam: Present: atraumatic, normocephalic, normal inspection Eye exam: Present: normal appearance, PERRL, EOMI. Absent: scleral icterus, conjunctival injection, periorbital swelling ENT exam: Present: normal exam, mucous membranes moist Neck exam: Present: normal inspection. Absent: tenderness, meningismus, lymphadenopathy Respiratory exam: Present: normal lung sounds bilaterally. Absent: respiratory distress, wheezes, rales, rhonchi, stridor Cardiovascular Exam: Present: regular rate, normal rhythm, normal heart sounds. Absent: systolic murmur, diastolic murmur, rubs, gallop, clicks GI/Abdominal exam: Present: soft, normal bowel sounds. Absent: distended, tenderness, guarding, rebound, rigid Extremities exam: Present: normal inspection, full ROM, normal capillary refill. Absent: tenderness, pedal edema, joint swelling, calf tenderness Back exam: Present: normal inspection Neurological exam: Present: alert, oriented X3, CN II-XII intact Psychiatric exam: Present: normal affect, normal mood Skin exam: Present: warm, dry, intact, normal color. Absent: rash Course Vital Signs 05/28/23 05/28/23 05/28/23 16:09 16:30 17:00 Temperature 97.9 F Pulse Rate 95 84 75 Pulse Rate [ Left] Respiratory 20 18 18 Rate Blood Pressure 79/55 94/54 101/66 Blood Pressure [Left Arm] O2 Sat by Pulse 100 97 97 Oximetry 05/28/23 05/28/23 05/28/23 17:30 18:00 18:30 Temperature Pulse Rate 73 75 78 Pulse Rate [ Left] Respiratory 18 18 18 Rate Blood Pressure 120/67 130/63 112/61 Blood Pressure [Left Arm] O2 Sat by Pulse 95 95 98 Oximetry 05/28/23 05/28/23 05/28/23 19:00 20:30 20:40 Temperature 97.8 F Pulse Rate 72 78 Pulse Rate [ 84 Left] Respiratory 18 18 18 Rate Blood Pressure 126/64 129/62 Blood Pressure 153/77 [Left Arm] O2 Sat by Pulse 97 99 Oximetry - Reevaluation(s) Reevaluation #1: 05/28/23 20:24 Record reviewed Reevaluation #2: 05/28/23 20:24 Patient has no improvement in symptoms here in the ER Reevaluation #3: 05/28/23 20:24 patient informed results and questions answered Reevaluation #4: 05/28/23 20:24 Was pt. sent in by a medical professional or institution ([facility], [facility], urgent care, hospital, or penitentiary...) When possible be specific @ -no Did you speak to anyone other than the patient for history (EMS, parent, family, police, friend...)? What history was obtained from this source @ -no Did you review nursing and triage notes (agree or disagree)? Why? @ -agree Are old charts reviewed (outside hosp., previous admission, EMS record, old EKG, old radiological studies, urgent care reports/EKG's, penitentiary records)? Report findings @ -yes Differential Diagnosis (chest pain, altered mental status, abdominal pain women, abdominal pain men, vaginal bleeding, weakness, fever, dyspnea, syncope, headache, dizziness, GI bleed, back pain, seizure, CVA, palpatations, mental health, musculoskeletal)? @ -prior EKG interpreted by me (3pts min.). @ -yes X-rays interpreted by me (1pt min.). @ -yes is negative for acute disaese CT interpreted by me (1pt min.). @ -no U/S interpreted by me (1pt. min.). @ -no What testing was considered but not performed or refused? (CT, X-rays, U/S, labs)? Why? @ -none What meds were considered but not given or refused? Why? @ -none Did you discuss the management of the patient with other professionals (pr ofessionals i.e. [facility], [facility], lab, RT, psych nurse, social science instructor, rn lpn lvn, teacher, radio electronics officer, clinical case manager)? Give summary @ -no Was smoking cessation discussed for >3mins.? @ -no Was critical care preformed (if so, how long)? @ -no Were there social determinants of health that impacted care today? How? (Homelessness, low income, unemployed, alcoholism, drug addiction, transportation, low edu. Level, literacy, decrease access to med. care, [place] [facility], rehab)? @ -none Was there de-escalation of care discussed even if they declined (Discuss DNR or withdrawal of care, Hospice)? DNR status @ -no What co-morbidities impacted this encounter? (DM, HTN, Smoking, COPD, CAD, Cancer, CVA, ARF, Chemo, Hep., AIDS, mental health diagnosis, sleep apnea, morbid obesity)? @ -none Was patient admitted / discharged? Hospital course, mention meds given and route, prescriptions, significant lab abnormalities, going to OR and other pertinent info. @ - 83 female to the ER for evaluation of severe weakness found to be dehydrated with urinary tract infection will need to be admitted for further evaluation management, IV antibiotics Admitted Undiagnosed new problem with uncertain prognosis? @ -no Drug Therapy requiring intensive monitoring for toxicity (Heparin, Nitro, Insulin, Cardizem)? @ -no Were any procedures done? @ -no Diagnosis/symptom? @ -UTI, Weakness, Debility Acute, or Chronic, or Acute on Chronic? @ -Acute Uncomplicated (without systemic symptoms) or Complicated (systemic symptoms)? @ -Complicated Side effects of treatment? @ -no Exacerbation, Progression, or Severe Exacerbation? @ -exacerbation Poses a threat to life or bodily function? How? (Chest pain, [place], [place], pneumonia, PE, COPD, DKA, ARF, appy, cholecystitis, CVA, Diverticulitis, Homicidal, Suicidal, threat to staff... and all critical care pts) @ -yes significant extremes of age Reevaluation #5: 05/28/23 20:24 Differential Weakness: Hypoglycemia, shock, sepsis, hyponatremia, anemia, infection, [place], ETOH, adverse medicine reaction, overdose, stroke, this is not meant to be an all-inclusive list. Differential Dyspnea: Coronary syndrome, arrhythmia, tamponade, asthma, COPD, pulmonary embolism, pneumonia, pneumothorax, pulmonary effusion, anaphylaxis, diabetic ketoacidosis, flailed chest, pulmonary contusion, diaphragmatic rupture, anemia, neuromuscular, this is not meant to be an all-inclusive list. - Consultations Consultation #1: Spoke with [facility] were agrees to admit this patient EKG Findings - EKG Comments: EKG Findings:: EKG is sinus 85 [address] 159 QRS 75 QTC 391 - EKG Results: EKG: interpreted by KAYKAY Medical Decision Making - Medical Decision Making 83 female to the ER for evaluation of severe weakness found to be dehydrated with urinary tract infection will need to be admitted for further evaluation management, IV antibiotics - Lab Data Result diagrams: 06/02/23 05:28 06/02/23 05:28 Lab Results 05/28/23 05/28/23 05/28/23 Range/Units 16:30 16:40 16:40 WBC 18.0 H (3.8-10.6) k/uL RBC 4.84 (3.80-5.40) m/uL Hgb 10.3 L (11.4-16.0) gm/dL Hct 34.9 (34.0-46.0) % MCV 72.1 L (80.0-100.0) fL MCH 21.4 L (25.0-35.0) pg MCHC 29.7 L (31.0-37.0) g/dL RDW 22.3 H (11.5-15.5) % Plt Count 422 (150-450) k/uL MPV 7.1 Neutrophils % 92 % Lymphocytes % 3 % Monocytes % 3 % Eosinophils % 1 % Basophils % 1 % Neutrophils # 16.5 H (1.3-7.7) k/uL Lymphocytes # 0.5 L (1.0-4.8) k/uL Monocytes # 0.6 (0-1.0) k/uL Eosinophils # 0.1 (0-0.7) k/uL Basophils # 0.1 (0-0.2) k/uL Hypochromasia Marked Poikilocytosis Slight Anisocytosis Moderate Microcytosis Marked PT 11.1 (10.0-12.5) sec INR 1.0 (<1.2) APTT 23.9 (22.0-30.0) sec Sodium (137-145) mmol/L Potassium (3.5-5.1) mmol/L Chloride (98-107) mmol/L Carbon Dioxide (22-30) mmol/L Anion Gap mmol/L BUN (7-17) mg/dL Creatinine (0.52-1.04) mg/dL Est GFR (CKD-EPI)AfAm (>60 ml/min/1.73 sqM) Est GFR (CKD-EPI)NonAf (>60 ml/min/1.73 sqM) Glucose (74-99) mg/dL Lactic Ac Sepsis Rflx Plasma Lactic Acid Miguel (0.7-2.0) mmol/L Calcium (8.4-10.2) mg/dL Phosphorus (2.5-4.5) mg/dL Magnesium (1.6-2.3) mg/dL Total Bilirubin (0.2-1.3) mg/dL AST (14-36) U/L ALT (4-34) U/L Alkaline Phosphatase (38-126) U/L Troponin I (0.000-0.034) ng/mL NT-Pro-B Natriuret Pep pg/mL Total Protein (6.3-8.2) g/dL Albumin (3.5-5.0) g/dL Urine Color Urine Appearance (Clear) Urine pH (5.0-8.0) Ur Specific Teaberry (1.001-1.035) Urine Protein (Negative) Urine Glucose (UA) (Negative) Urine Ketones (Negative) Urine Blood (Negative) Urine Nitrite (Negative) Urine Bilirubin (Negative) Urine Urobilinogen (<2.0) mg/dL Ur Leukocyte Esterase (Negative) Urine RBC (0-5) /hpf Urine WBC (0-5) /hpf Ur Squamous Epith Cells (0-4) /hpf Hyaline Casts (0-2) /lpf Urine Mucus (None) /hpf Influenza Type A (PCR) (Not Detectd) Influenza Type B (PCR) (Not Detectd) RSV (PCR) (Not Detectd) SARS-CoV-2 (PCR) (Not Detectd) Blood Type A Positive Blood Type Recheck A Pos Bld Type Recheck Status No Antibody Screen NEGATIVE Spec Expiration Date 05/31/2023 - 232905/28/23 05/28/23 05/28/23 Range/Units 16:40 16:40 16:40 WBC (3.8-10.6) k/uL RBC (3.80-5.40) m/uL Hgb (11.4-16.0) gm/dL Hct (34.0-46.0) % MCV (80.0-100.0) fL MCH (25.0-35.0) pg MCHC (31.0-37.0) g/dL RDW (11.5-15.5) % Plt Count (150-450) k/uL MPV Neutrophils % % Lymphocytes % % Monocytes % % Eosinophils % % Basophils % % Neutrophils # (1.3-7.7) k/uL Lymphocytes # (1.0-4.8) k/uL Monocytes # (0-1.0) k/uL Eosinophils # (0-0.7) k/uL Basophils # (0-0.2) k/uL Hypochromasia Poikilocytosis Anisocytosis Microcytosis PT (10.0-12.5) sec INR (<1.2) APTT (22.0-30.0) sec Sodium 137 (137-145) mmol/L Potassium 5.4 H (3.5-5.1) mmol/L Chloride 99 (98-107) mmol/L Carbon Dioxide 21 L (22-30) mmol/L Anion Gap 17 mmol/L BUN 16 (7-17) mg/dL Creatinine 1.11 H (0.52-1.04) mg/dL Est GFR (CKD-EPI)AfAm 53 (>60 ml/min/1.73 sqM) Est GFR (CKD-EPI)NonAf 46 (>60 ml/min/1.73 sqM) Glucose 119 H (74-99) mg/dL Lactic Ac Sepsis Rflx Plasma Lactic Acid Miguel 2.7 H* (0.7-2.0) mmol/L Calcium 10.1 (8.4-10.2) mg/dL Phosphorus 4.2 (2.5-4.5) mg/dL Magnesium 2.0 (1.6-2.3) mg/dL Total Bilirubin 0.6 (0.2-1.3) mg/dL AST 44 H (14-36) U/L ALT 26 (4-34) U/L Alkaline Phosphatase 124 (38-126) U/L Troponin I <0.012 (0.000-0.034) ng/mL NT-Pro-B Natriuret Pep 371 pg/mL Total Protein 8.1 (6.3-8.2) g/dL Albumin 4.4 (3.5-5.0) g/dL Urine Color Urine Appearance (Clear) Urine pH (5.0-8.0) Ur Specific Te[place]erry (1.001-1.035) Urine Protein (Negative) Urine Glucose (UA) (Negative) Urine Ketones (Negative) Urine Blood (Negative) Urine Nitrite (Negative) Urine Bilirubin (Negative) Urine Urobilinogen (<2.0) mg/dL Ur Leukocyte Esterase (Negative) Urine RBC (0-5) /hpf Urine WBC (0-5) /hpf Ur Squamous Epith Cells (0-4) /hpf Hyaline Casts (0-2) /lpf Urine Mucus (None) /hpf Influenza Type A (PCR) (Not Detectd) Influenza Type B (PCR) (Not Detectd) RSV (PCR) (Not Detectd) SARS-CoV-2 (PCR) (Not Detectd) Blood Type Blood Type Recheck Bld Type Recheck Status Antibody Screen Spec Expiration Date 05/28/23 05/28/23 05/28/23 Range/Units 17:32 18:10 18:15 WBC (3.8-10.6) k/uL RBC (3.80-5.40) m/uL Hgb (11.4-16.0) gm/dL Hct (34.0-46.0) % MCV (80.0-100.0) fL MCH (25.0-35.0) pg MCHC (31.0-37.0) g/dL RDW (11.5-15.5) % Plt Count (150-450) k/uL MPV Neutrophils % % Lymphocytes % % Monocytes % % Eosinophils % % Basophils % % Neutrophils # (1.3-7.7) k/uL Lymphocytes # (1.0-4.8) k/uL Monocytes # (0-1.0) k/uL Eosinophils # (0-0.7) k/uL Basophils # (0-0.2) k/uL Hypochromasia Poikilocytosis Anisocytosis Microcytosis PT (10.0-12.5) sec INR (<1.2) APTT (22.0-30.0) sec Sodium (137-145) mmol/L Potassium (3.5-5.1) mmol/L Chloride (98-107) mmol/L Carbon Dioxide (22-30) mmol/L Anion Gap mmol/L BUN (7-17) mg/dL Creatinine (0.52-1.04) mg/dL Est GFR (CKD-EPI)AfAm (>60 ml/min/1.73 sqM) Est GFR (CKD-EPI)NonAf (>60 ml/min/1.73 sqM) Glucose (74-99) mg/dL Lactic Ac Sepsis Rflx Y Plasma Lactic Acid Miguel (0.7-2.0) mmol/L Calcium (8.4-10.2) mg/dL Phosphorus (2.5-4.5) mg/dL Magnesium (1.6-2.3) mg/dL Total Bilirubin (0.2-1.3) mg/dL AST (14-36) U/L ALT (4-34) U/L Alkaline Phosphatase (38-126) U/L Troponin I (0.000-0.034) ng/mL NT-Pro-B Natriuret Pep pg/mL Total Protein (6.3-8.2) g/dL Albumin (3.5-5.0) g/dL Urine Color Yellow Urine Appearance Cloudy H (Clear) Urine pH 6.0 (5.0-8.0) Ur Specific [place] 1.024 (1.001-1.035) Urine Protein 1+ H (Negative) Urine Glucose (UA) Negative (Negative) Urine Ketones Negative (Negative) Urine Blood Negative (Negative) Urine Nitrite Negative (Negative) Urine Bilirubin Negative (Negative) Urine Urobilinogen 2.0 (<2.0) mg/dL Ur Leukocyte Esterase Trace H (Negative) Urine RBC 2 (0-5) /hpf Urine WBC 11 H (0-5) /hpf Ur Squamous Epith Cells 5 H (0-4) /hpf Hyaline Casts 31 H (0-2) /lpf Urine Mucus Many H (None) /hpf Influenza Type A (PCR) Not Detected (Not Detectd) Influenza Type B (PCR) Not Detected (Not Detectd) RSV (PCR) Not Detected (Not Detectd) SARS-CoV-2 (PCR) Not Detected (Not Detectd) Blood Type Blood Type Recheck Bld Type Recheck Status Antibody Screen Spec Expiration Date - EKG Data -: EKG Interpreted by Me - Radiology Data Radiology results: report reviewed (Chest x-rays negative for acute disease), image reviewed Disposition Clinical Impression: Weakness, Dehydration, Debility, Leukocytosis, Right leg pain, UTI (urinary tract infection), Pleural effusion, left, Anemia Disposition: ADMITTED IP TO THIS [facility] Condition: Fair Is patient prescribed a controlled substance at d/c from ED?: No Time of Disposition: 18:45
[2023-05-28 17:02] LABS: Anisocytosis Moderate; Basophils # (A) 0.1 k/uL (0-0.2); Basophils % (A) 1 %; Eosinophils # (A) 0.1 k/uL (0-0.7); Eosinophils % (A) 1 %; HCT 34.9 % (34.0-46.0); HGB 10.3 gm/dL (11.4-16.0); Hypochromasia Marked; Lymphocytes # (A) 0.5 k/uL (1.0-4.8); Lymphocytes % (A) 3 %; MCH 21.4 pg (25.0-35.0); MCHC 29.7 g/dL (31.0-37.0); MCV 72.1 fL (80.0-100.0); Mean Platelet Volume 7.1; Microcytosis Marked; Monocytes # (A) 0.6 k/uL (0-1.0); Monocytes % (A) 3 %; Neutrophils # (A) 16.5 k/uL (1.3-7.7); Neutrophils % (A) 92 %; Platelet Count 422 k/uL (150-450); Poikilocytosis Slight; RBC 4.84 m/uL (3.80-5.40); RDW 22.3 % (11.5-15.5)
[2023-05-28 17:11] LABS: Partial Thromboplastin Time 23.9 sec (22.0-30.0); Prothrombin Time 11.1 sec (10.0-12.5)
[2023-05-28 17:21] LABS: ALT 26 U/L (4-34); African American GFR (CKD) 53 (>60 ml/min/1.73 sqM); Albumin 4.4 g/dL (3.5-5.0); Anion Gap 17 mmol/L; Blood Urea Nitrogen 16 mg/dL (7-17); Calcium 10.1 mg/dL (8.4-10.2); Carbon Dioxide 21 mmol/L (22-30); Chloride 99 mmol/L (98-107); Glucose 119 mg/dL (74-99); Non-African American GFR(CKD) 46 (>60 ml/min/1.73 sqM); Sodium 137 mmol/L (137-145); Total Bilirubin 0.6 mg/dL (0.2-1.3); Total Protein 8.1 g/dL (6.3-8.2)
[2023-05-28 17:28] LABS: NT-Pro-B-Type Natriuretic Pept 371 pg/mL
[2023-05-28 17:33] LABS: AST 44 U/L (14-36); Potassium 5.4 mmol/L (3.5-5.1)
[2023-05-28 17:34] LABS: Alkaline Phosphatase 124 U/L (38-126); Phosphorus 4.2 mg/dL (2.5-4.5)
[2023-05-28] MEDS: SODIUM CHLORIDE 0.9% 1,000 ML IV SCH ×2 (18:39→19:28)
[2023-05-28] MEDS ORDERED: MORPHINE SULFATE 4 MG/ML SYRINGE IV PRN (18:45)
[2023-05-28] MEDS ORDERED: ONDANSETRON 4 MG/2 ML VIAL IVP PRN (18:45)
[2023-05-28] MEDS ORDERED: NALOXONE 0.4 MG/ML 1 ML VIAL IV PRN (18:45)
[2023-05-28 18:55] LABS: Appearance,Urine Cloudy (Clear); Bilirubin,Urine Negative (Negative); Blood,Urine Negative (Negative); Color,Urine Yellow; Glucose,Urine (UA) Negative (Negative); Hyaline Casts,Urine 31 /lpf (0-2); Ketones,Urine Negative (Negative); Leukocyte Esterase,Urine Trace (Negative); Mucus,Urine Many /hpf; Nitrite,Urine Negative (Negative); Protein,Urine 1+ (Negative); RBC,Urine 2 /hpf (0-5); Specific Gravity,Urine 1.024 (1.001-1.035); Squamous Epithelial Cell,Urine 5 /hpf (0-4); WBC,Urine 11 /hpf (0-5)
--- NOTE | 2023-05-28 18:55 | XR ---
EXAMINATION TYPE: XR chest 1V portable DATE OF EXAM: 05/28/2023 6:22 PM CLINICAL INDICATION:Female, 83 years old with history of weak; H COMPARISON: Chest radiographs from 05/23/2023. TECHNIQUE: XR chest 1V portable Frontal view of the chest. FINDINGS: Lungs/Pleura: There remains left blunting of the gastric angle. There is no evidence of right pleural effusion, focal consolidation, or pneumothorax. Pulmonary vascularity: Unremarkable. Heart/mediastinum: Cardiomediastinal silhouette is unremarkable. Musculoskeletal: No acute osseous pathology. IMPRESSION: Left pleural effusion which is decreased from prior.
[2023-05-28] MEDS: PANTOPRAZOLE 40 MG TABLET PO SCH (22:35)
[2023-05-28] MEDS: guaiFENesin 600 MG TABLET.ER PO SCH (22:35)
[2023-05-29] MEDS: SODIUM CHLORIDE 0.9% 1,000 ML IV SCH ×4 (04:09→10:21)
[2023-05-29] MEDS: PANTOPRAZOLE 40 MG TABLET PO SCH ×2 (06:49→16:46)
[2023-05-29] MEDS: guaiFENesin 600 MG TABLET.ER PO SCH ×2 (08:10→20:30)
[2023-05-29 08:22] LABS: Anisocytosis Moderate; Basophils # (A) 0.1 k/uL (0-0.2); Basophils % (A) 0 %; Eosinophils # (A) 0.2 k/uL (0-0.7); Eosinophils % (A) 2 %; HCT 28.4 % (34.0-46.0); Hypochromasia Marked; Lymphocytes % (A) 7 %; MCH 21.9 pg (25.0-35.0); MCHC 29.8 g/dL (31.0-37.0); MCV 73.5 fL (80.0-100.0); Mean Platelet Volume 7.6; Microcytosis Marked; Monocytes # (A) 0.7 k/uL (0-1.0); Monocytes % (A) 6 %; Neutrophils # (A) 10.8 k/uL (1.3-7.7); Neutrophils % (A) 83 %; Platelet Count 326 k/uL (150-450); Poikilocytosis Moderate; RBC 3.86 m/uL (3.80-5.40); RDW 21.8 % (11.5-15.5)
[2023-05-29 08:25] LABS: ALT 20 U/L (4-34); AST 24 U/L (14-36); African American GFR (CKD) 83 (>60 ml/min/1.73 sqM); Albumin 3.4 g/dL (3.5-5.0); Albumin/Globulin Ratio 1.1; Alkaline Phosphatase 109 U/L (38-126); Anion Gap 11 mmol/L; Blood Urea Nitrogen 16 mg/dL (7-17); Calcium 9.3 mg/dL (8.4-10.2); Carbon Dioxide 19 mmol/L (22-30); Chloride 107 mmol/L (98-107); Globulin 3.1 g/dL; Glucose 102 mg/dL (74-99); Magnesium 1.9 mg/dL (1.6-2.3); Non-African American GFR(CKD) 72 (>60 ml/min/1.73 sqM); Potassium 4.7 mmol/L (3.5-5.1); Sodium 137 mmol/L (137-145); Total Bilirubin 0.3 mg/dL (0.2-1.3); Total Protein 6.5 g/dL (6.3-8.2)
[2023-05-29 08:26] LABS: HGB 8.4 gm/dL (11.4-16.0)
--- NOTE | 2023-05-29 12:14 | US ---
EXAMINATION TYPE: US venous doppler duplex LE RT DATE OF EXAM: 05/29/2023 12:04 PM COMPARISON: US 05/20/2023 CLINICAL INDICATION: Female, 83 years old with history of Right leg DVT; Hx DVT in right leg*. Patien t has IVC filter. SIDE PERFORMED: Right TECHNIQUE: The lower extremity deep venous system is examined utilizing real time linear array sonog jadon with graded compression, doppler sonography and color-flow sonography. VESSELS IMAGED: Common Femoral Vein Deep Femoral Vein Greater Saphenous Vein * Femoral Vein Popliteal Vein Small Saphenous Vein * Proximal Calf Veins (* superficial vessels) Extensive intraluminal echogenicity with lack of color Doppler flow and noncompressibility within the common femoral vein, upper greater saphenous vein, femoral vein, deep femoral vein, popliteal vein, and proximal calf veins. Findings are compatible with DVT. Right Leg: *Positive for DVT. Extensive internal echoes seen within CFV, upper GSV, femoral vein, tony p femoral vein, popliteal vein, and prox calf veins. Lack of color flow seen within veins imaged. Vei ns do not compress. IMPRESSION: Positive study for extensive DVT throughout the right lower extremity.
--- NOTE | 2023-05-29 13:07 | P.CNPUL ---
History of Present Illness Consult date: 05/29/23 Reason for consult: pulmonary embolism History of present illness: Patient is being seen in consultation for recent pulmonary embolism. The bryn hancock was discharged home on 05/24/2023 to be readmitted with worsening right lower extremity edema and some dizziness. Nontender worsening shortness of breath. The patient remains on room air oxygen. The patient had a chest x-ray in the emergency department that showed improvement in the left lower lobe small pleural effusion. Otherwise, no hemoptysis or pleurisy. Noted the patient is not receiving any anticoagulation due to a recent GI bleed due to a gastric ulcer. The patient was given IVC filter accordingly. In summary, this patient is 83 and she was recently hospitalized for exertional shortness of breath. Denies any fevers, chills, cough, chest pain, hemoptysis. Her hemoglobin level was found to be low on outpatient labs, and she was directed to the emergency room. Hemoglobin level at our facility was 5.9 g/dL. She was transfused 2 units PRBCs, and repeat hemoglobin level is up to 8.5 g/dL. She denies any GI bleeding. Denies any melena. Denies any nausea, vomiting, hematemesis. Denies any abdominal pain. Does not take any anticoagulants. Denies frequent NSAID use. Occasionally takes Aleve. Unsure of when her last colonoscopy was. Denies any recent trauma or surgery. Denies any prolonged travel. Denies any familial or personal history of blood clots. Denies history of malignancy. D-dimer was elevated at 3.07. A follow-up chest CTA was positive for pulmonary emboli on the left, moderate burden scattered throughout the lobar, segmental, and subsegmental branches of the lower lobe. No CT evidence of right heart strain. Also found to have a right lower extremity popliteal DVT. IVC filter was placed. The patient underwent further workup for GI bleed and the patient was found to have a clear base 1 cm gastric ulcer in the proximal body of stomach along with a moderate degree of antral gastritis and a moderate-sized hiatal hernia. Colonoscopy showed diverticulosis without evidence of any malignancy. Since her discharge, she has not received any anticoagulation. The patient had a stable hemoglobin of 8.4. The discharge hemoglobin was at 9.1. For now, the patient is having significant difficulties in right lower extremity swelling which has gotten worse since her discharge meds make her very uncomfortable. Electrolytes are stable. Troponins are negative. Review of Systems Constitutional: Reports fatigue, Reports weakness Eyes: denies as per HPI, denies blurred vision, denies bulging eye, denies decreased vision, denies diplopia, denies discharge, denies dry eye, denies irritation, denies itching, denies pain, denies photophobia, denies loss of peripheral vision, denies loss of vision, denies tunnel vision/blind spots Ears: deny: decreased hearing, ear discharge, earache, tinnitus Ears, nose, mouth and throat: Reports as per HPI Breasts: absent: as per HPI, change in shape, gynecomastia, masses, nipple discharge, pain, skin changes, swelling Cardiovascular: Reports as per HPI Respiratory: Reports as per HPI Gastrointestinal: Reports as per HPI (Gastric ulcer and GI bleed) Genitourinary: Reports as per HPI Menstruation: Reports as per HPI Musculoskeletal: Reports as per HPI Musculoskeletal: bilateral: ankle swelling, absent: ankle pain, ankle stiffness Integumentary: Reports as per HPI Neurological: Reports as per HPI Psychiatric: Reports as per HPI Endocrine: Reports as per HPI Hematologic/Lymphatic: Reports as per HPI Allergic/Immunologic: Reports as per HPI Past Medical History Past Medical History: Deep Vein Thrombosis (DVT), GI Bleed, Pulmonary Embolus (PE) Additional Past Medical History / Comment(s): Blood clot in right leg, and a clot in the lung as well. History of Any Multi-Drug Resistant Organisms: None Reported Past Surgical History: No Surgical Hx Reported Additional Past Surgical History / Comment(s): beryl to lt arm removed Past Anesthesia/Blood Transfusion Reactions: No Reported Reaction Past Psychological History: No Psychological Hx Reported Smoking Status: Never smoker Past Alcohol Use History: Occasional Past Drug Use History: None Reported - Past Family History Mother Family Medical History: Rheumatoid Arthritis (RA) Father Family Medical History: COPD Medications and Allergies Home Medications Medication Instructions Recorded Confirmed Type Pantoprazole Sodium [Protonix] 40 mg PO BID 30 Days #60 tab 05/24/23 05/28/23 Rx guaiFENesin [Mucinex] 600 mg PO Q12HR 7 Days #14 tab 05/24/23 05/28/23 Rx Allergies Allergy/AdvReac Type Severity Reaction Status Date / Time No Known Allergies Allergy Verified 05/28/23 18:29 Physical Exam Vitals: Vital Signs Temp Pulse Pulse Resp BP BP Pulse Ox 05/29/23 10:04 97 05/29/23 08:00 98.2 F 96 16 104/65 99 05/29/23 01:25 98.5 F 79 19 118/71 94 L 05/28/23 20:40 97.8 F 84 18 153/77 99 05/28/23 20:30 78 18 129/62 97 05/28/23 19:00 72 18 126/64 05/28/23 18:30 78 18 112/61 98 05/28/23 18:00 75 18 130/63 95 05/28/23 17:30 73 18 120/67 95 05/28/23 17:00 75 18 101/66 97 05/28/23 16:30 84 18 94/54 97 05/28/23 16:09 97.9 F 95 20 79/55 100 Intake and Output 05/28/23 05/29/23 05/29/23 22:59 06:59 14:59 Other: Voiding Method Toilet Toilet # Voids 2 2 # Bowel Movements 1 Weight 52.163 kg GENERAL EXAM: Alert, 83-year-old white female, comfortable in no apparent distress. HEAD: Normocephalic and atraumatic EYES: Normal reaction of pupils, equal size. NOSE: Clear with pink turbinates. THROAT: No erythema or exudates. NECK: No masses, no JVD. CHEST: No chest wall deformity. LUNGS: Equal air entry with diminished left lower lung sounds. On room air. No conversational dyspnea or accessory muscle use.. CVS: S1 and S2 normal with no audible murmur, regular rhythm. No extra heart sounds ABDOMEN: No hepatosplenomegaly, active bowel sounds, no guarding or rigidity. SPINE: No scoliosis or deformity SKIN: No rashes CENTRAL NERVOUS SYSTEM: No focal deficits, tone is normal in all 4 extremities. EXTREMITIES: Significant edema of the right lower extremity, no edema on the left, no cyanosis or clubbing Results - Laboratory Findings CBC and BMP: 05/29/23 07:00 05/29/23 07:00 PT/INR, D-dimer PT 11.1 sec (10.0-12.5) 05/28/23 16:40 INR 1.0 (<1.2) 05/28/23 16:40 Abnormal lab findings: Abnormal Labs 05/28/23 05/28/23 05/28/23 16:40 16:40 16:40 WBC 18.0 H Hgb 10.3 L Hct MCV 72.1 L MCH 21.4 L MCHC 29.7 L RDW 22.3 H Neutrophils # 16.5 H Lymphocytes # 0.5 L Potassium 5.4 H Carbon Dioxide 21 L Creatinine 1.11 H Glucose 119 H Plasma Lactic Acid Miguel 2.7 H* AST 44 H Albumin Urine Appearance Urine Protein Ur Leukocyte Esterase Urine WBC Ur Squamous Epith Cells Hyaline Casts Urine Mucus 05/28/23 05/29/23 05/29/23 18:15 07:00 07:00 WBC 13.0 H Hgb 8.4 L D Hct 28.4 L MCV 73.5 L MCH 21.9 L MCHC 29.8 L RDW 21.8 H Neutrophils # 10.8 H Lymphocytes # Potassium Carbon Dioxide 19 L Creatinine Glucose 102 H Plasma Lactic Acid Miguel AST Albumin 3.4 L Urine Appearance Cloudy H Urine Protein 1+ H Ur Leukocyte Esterase Trace H Urine WBC 11 H Ur Squamous Epith Cells 5 H Hyaline Casts 31 H Urine Mucus Many H - Diagnostic Findings Chest x-ray: image reviewed Assessment and Plan Plan: Pulmonary embolism related to a right lower extremity DVT/popliteal and the patient was given an IVC filter due to contraindication to anticoagulation as the patient was found to have a gastric ulcer with a clean base measuring 1 cm on an EGD and the patient had significant blood loss anemia on an earlier hospitalization. The patient was discharged home on 05/24/2023 Right lower extremity DVT popliteal with progressive worsening and edema History of IVC filter placement Acute blood loss anemia secondary to GI bleed secondary to gastric ulcer 1 cm, hemoglobin is stable for now at 8.4 Gastric ulcer along with antral gastritis and moderate-sized hiatal hernia Chronic diverticulosis Small left-sided pleural effusion Plan The progressive swelling in the right lower extremity is of concern. Consider progression of the right lower extremity DVT specially after IVC filter placement especially that the patient is not taking any form of anticoagulants. As such compression stocking will be offered and the patient will be given a nother ultrasound Doppler of the lower extremity and advanced to surgery consultation will be obtained for other alternative management of DVT and swelling/ edema of the right lower extremity Moderate hemoglobin which is essentially stable for now No anticoagulants Status status is stable and the patient is not having any significant shortness of breath Chest x-ray shows improvement in the small left-sided pleural effusion Continue PPI regarding healing of the gastric ulcer We'll continue to follow
--- NOTE | 2023-05-29 13:46 | P.HPIM ---
History of Present Illness H&P Date: 05/29/23 History of present illness; patient is a 83-year-old lady with past medical sig nificant for recently diagnosed PE, gastric ulcer who presented to the ER for evaluation for generalized weakness and debility. Patient was only recently discharged after being admitted to the hospital for evaluation for anemia, during that visit patient had chest CTA which was positive for pulmonary emboli on the left, moderate burden scattered throughout the lobar, segmental, and rae bsegmental branches of the lower lobe. Patient was not anticoagulated secondary to anemia and underwent EGD which revealed a gastric ulcer, hiatal hernia, gastritis, and extensive diverticulosis, Because of the PE, patient had IVC filter placed by vascular surgery, patient was discharged on oral Protonix. Patient stated that since her discharge she has been noticing increasing weakness. Patient getting short of breath on exertion. Patient complaining of generalized weakness. Patient also started noticing that her life lower extremity was swollen. Patient did not notice any blood in her stools. There was no complain of nausea or vomiting. Denied any chest pain. There was no complain of orthopnea or PND. There was no swelling of feet. Patient even felt as if she were to pass out. Because of the symptoms, patient came back to the ER Initial lab work done in the ER showed 213, hemoglobin 8.4, platelet count 326, sodium 137, potassium 4.7, BUN 16, creatinine 0.77 UA done showed nitrite negative, leukocyte esterase trace amounts, urine WBC 11 Influenza a not detected Influenza B not detected COVID-19 not detected. EKG done showed normal sinus rhythm, heart rate 85, non-ST segment elevation seen, no T-wave inversion Chest x-ray done in the ER showed left pleural effusion which is decreased from before Patient admitted to internal medicine service REVIEW OF SYSTEMS: CONSTITUTIONAL: No fever, no malaise, no fatigue. HEENT: No recent visual problems or hearing problems. Denied any sore throat. CARDIOVASCULAR: No chest pain, orthopnea, PND, no palpitations, no syncope. PULMONARY: As mentioned above GASTROINTESTINAL: No diarrhea, no nausea, no vomiting, no abdominal pain. NEUROLOGICAL: No headaches, no weakness, no numbness. HEMATOLOGICAL: Denies any bleeding or petechiae. GENITOURINARY: Denies any burning micturition, frequency, or urgency. MUSCULOSKELETAL/RHEUMATOLOGICAL: Complaining of swelling of right lower extremity ENDOCRINE: Denies any polyuria or polydipsia. The rest of the 14-point review of systems is negative. PHYSICAL EXAMINATION: GENERAL: The patient is alert and oriented x3, not in any acute distress. Well developed, well nourished. HEENT: Pupils are round and equally reacting to light. EOMI. No scleral icterus. No conjunctival pallor. Normocephalic, atraumatic. No pharyngeal erythema. No thyromegaly. CARDIOVASCULAR: S1 and S2 present. No murmurs, rubs, or gallops. PULMONARY: Chest is clear to auscultation, no wheezing or crackles. ABDOMEN: Soft, nontender, nondistended, normoactive bowel sounds. No palpable organomegaly. MUSCULOSKELETAL: Right Lower extremities very swollen EXTREMITIES: No cyanosis, clubbing, or pedal edema. NEUROLOGICAL: Gross neurological examination did not reveal any focal deficits. SKIN: No rashes. Assessment and plan Dizziness Generalized weakness Debility Pulmonary embolism Right lower extremity DVT Acute Blood loss anemia GI bleed Gastric ulcer Gastritis Hiatal hernia Monitor vital signs Monitor CBC Monitor CMP Continue telemetry monitoring Trend troponin Order proBNP Continue Protonix Ordered duplex ultrasound of right lower extremity Consulted vascular surgery Consulted PT and OT Consult pulmonary Labs and medication were reviewed.. Continue same treatment. Continue with symptomatic treatment. Resume home medication. Monitor labs and vitals. DVT and GI prophylaxis. Further recommendations as per clinical course of the patient Dictation was produced using [employer] dictation software. please excuse any grammatical, word or spelling errors. Past Medical History Past Medical History: Deep Vein Thrombosis (DVT), GI Bleed, Pulmonary Embolus (PE) Additional Past Medical History / Comment(s): Blood clot in right leg, and a clot in the lung as well. History of Any Multi-Drug Resistant Organisms: None Reported Past Surgical History: No Surgical Hx Reported Additional Past Surgical History / Comment(s): beryl to lt arm removed Past Anesthesia/Blood Transfusion Reactions: No Reported Reaction Past Psychological History: No Psychological Hx Reported Smoking Status: Never smoker Past Alcohol Use History: Occasional Past Drug Use History: None Reported - Past Family History Mother Family Medical History: Rheumatoid Arthritis (RA) Father Family Medical History: COPD Medications and Allergies Home Medications Medication Instructions Recorded Confirmed Type Pantoprazole Sodium [Protonix] 40 mg PO BID 30 Days #60 tab 05/24/23 05/28/23 Rx guaiFENesin [Mucinex] 600 mg PO Q12HR 7 Days #14 tab 05/24/23 05/28/23 Rx Allergies Allergy/AdvReac Type Severity Reaction Status Date / Time No Known Allergies Allergy Verified 05/28/23 18:29 Physical Exam Vitals: Vital Signs Temp Pulse Pulse Resp BP BP Pulse Ox 05/29/23 10:04 97 05/29/23 08:00 98.2 F 96 16 104/65 99 05/29/23 01:25 98.5 F 79 19 118/71 94 L 05/28/23 20:40 97.8 F 84 18 153/77 99 05/28/23 20:30 78 18 129/62 97 05/28/23 19:00 72 18 126/64 05/28/23 18:30 78 18 112/61 98 05/28/23 18:00 75 18 130/63 95 05/28/23 17:30 73 18 120/67 95 05/28/23 17:00 75 18 101/66 97 05/28/23 16:30 84 18 94/54 97 05/28/23 16:09 97.9 F 95 20 79/55 100 Intake and Output 05/28/23 05/29/23 05/29/23 22:59 06:59 14:59 Other: Voiding Method Toilet Toilet # Voids 2 2 # Bowel Movements 1 Weight 52.163 kg Results CBC & Chem 7: 05/29/23 07:00 05/29/23 07:00 Labs: Abnormal Lab Results - Last 24 Hours (Table) 05/28/23 05/28/23 05/28/23 Range/Units 16:40 16:40 16:40 WBC 18.0 H (3.8-10.6) k/uL Hgb 10.3 L (11.4-16.0) gm/dL Hct (34.0-46.0) % MCV 72.1 L (80.0-100.0) fL MCH 21.4 L (25.0-35.0) pg MCHC 29.7 L (31.0-37.0) g/dL RDW 22.3 H (11.5-15.5) % Neutrophils # 16.5 H (1.3-7.7) k/uL Lymphocytes # 0.5 L (1.0-4.8) k/uL Potassium 5.4 H (3.5-5.1) mmol/L Carbon Dioxide 21 L (22-30) mmol/L Creatinine 1.11 H (0.52-1.04) mg/dL Glucose 119 H (74-99) mg/dL Plasma Lactic Acid Miguel 2.7 H* (0.7-2.0) mmol/L AST 44 H (14-36) U/L Albumin (3.5-5.0) g/dL Urine Appearance (Clear) Urine Protein (Negative) Ur Leukocyte Esterase (Negative) Urine WBC (0-5) /hpf Ur Squamous Epith Cells (0-4) /hpf Hyaline Casts (0-2) /lpf Urine Mucus (None) /hpf 05/28/23 05/29/23 05/29/23 Range/Units 18:15 07:00 07:00 WBC 13.0 H (3.8-10.6) k/uL Hgb 8.4 L D (11.4-16.0) gm/dL Hct 28.4 L (34.0-46.0) % MCV 73.5 L (80.0-100.0) fL MCH 21.9 L (25.0-35.0) pg MCHC 29.8 L (31.0-37.0) g/dL RDW 21.8 H (11.5-15.5) % Neutrophils # 10.8 H (1.3-7.7) k/uL Lymphocytes # (1.0-4.8) k/uL Potassium (3.5-5.1) mmol/L Carbon Dioxide 19 L (22-30) mmol/L Creatinine (0.52-1.04) mg/dL Glucose 102 H (74-99) mg/dL Plasma Lactic Acid Miguel (0.7-2.0) mmol/L AST (14-36) U/L Albumin 3.4 L (3.5-5.0) g/dL Urine Appearance Cloudy H (Clear) Urine Protein 1+ H (Negative) Ur Leukocyte Esterase Trace H (Negative) Urine WBC 11 H (0-5) /hpf Ur Squamous Epith Cells 5 H (0-4) /hpf Hyaline Casts 31 H (0-2) /lpf Urine Mucus Many H (None) /hpf Thrombosis Risk Factor Assmnt - Choose All That Apply Each Risk Factor Represents 3 Points: Age 75 years or older, History of DVT/PE Thrombosis Risk Factor Assessment Total Risk Factor Score: 6 Thrombosis Risk Factor Assessment Level: High Risk
[2023-05-29] MEDS: ACETAMINOPHEN TAB 325 MG TAB PO PRN (14:46)
[2023-05-29 14:52] LABS: Appearance,Urine Clear (Clear); Bilirubin,Urine Negative (Negative); Blood,Urine Negative (Negative); Color,Urine Colorless; Glucose,Urine (UA) Negative (Negative); Ketones,Urine Negative (Negative); Leukocyte Esterase,Urine Negative (Negative); Nitrite,Urine Negative (Negative); Protein,Urine Negative (Negative); Specific Gravity,Urine 1.004 (1.001-1.035); Urobilinogen,Urine <2.0 mg/dL (<2.0)
[2023-05-30] MEDS: PANTOPRAZOLE 40 MG TABLET PO SCH ×2 (06:06→16:54)
[2023-05-30] MEDS: guaiFENesin 600 MG TABLET.ER PO SCH ×2 (09:18→20:40)
[2023-05-30 13:08] LABS: ALT 18 U/L (4-34); African American GFR (CKD) >90 (>60 ml/min/1.73 sqM); Albumin 3.7 g/dL (3.5-5.0); Albumin/Globulin Ratio 1.1; Anion Gap 15 mmol/L; Blood Urea Nitrogen 11 mg/dL (7-17); Calcium 9.5 mg/dL (8.4-10.2); Carbon Dioxide 17 mmol/L (22-30); Chloride 106 mmol/L (98-107); Globulin 3.5 g/dL; Glucose 84 mg/dL (74-99); Non-African American GFR(CKD) 82 (>60 ml/min/1.73 sqM); Sodium 138 mmol/L (137-145); Total Bilirubin 0.6 mg/dL (0.2-1.3); Total Protein 7.2 g/dL (6.3-8.2)
[2023-05-30 13:11] LABS: Anisocytosis Moderate; HCT 29.8 % (34.0-46.0); HGB 8.5 gm/dL (11.4-16.0); Hypochromasia Marked; MCH 21.5 pg (25.0-35.0); MCHC 28.6 g/dL (31.0-37.0); MCV 75.1 fL (80.0-100.0); Mean Platelet Volume 6.7; Microcytosis Marked; Platelet Count 321 k/uL (150-450); Poikilocytosis Slight; RBC 3.97 m/uL (3.80-5.40); RDW 22.5 % (11.5-15.5); WBC 12.6 k/uL (3.8-10.6)
[2023-05-30 13:12] LABS: AST 48 U/L (14-36); Alkaline Phosphatase 89 U/L (38-126); Potassium 5.1 mmol/L (3.5-5.1)
--- NOTE | 2023-05-30 13:26 | P.PN ---
Subjective Progress Note Date: 05/30/23 Patient is being seen in consultation for recent pulmonary embolism. The patient was discharged home on 05/24/2023 to be readmitted with worsening right lower extremity edema and some dizziness. Nontender worsening shortness of breath. The patient remains on room air oxygen. The patient had a chest x-ray in the emergency department that showed improvement in the left lower lobe small pleural effusion. Otherwise, no hemoptysis or pleurisy. Noted the patient is not receiving any anticoagulation due to a recent GI bleed due to a gastric ulcer. The patient was given IVC filter accordingly. In summary, this patient is 83 and she was recently hospitalized for exertional shortness of breath. De nies any fevers, chills, cough, chest pain, hemoptysis. Her hemoglobin level was found to be low on outpatient labs, and she was directed to the emergency room. Hemoglobin level at our facility was 5.9 g/dL. She was transfused 2 units PRBCs, and repeat hemoglobin level is up to 8.5 g/dL. She denies any GI bleeding. Denies any melena. Denies any nausea, vomiting, hematemesis. Denies any abdominal pain. Does not take any anticoagulants. Denies frequent NSAID use. Occasionally takes Aleve. Unsure of when her last colonoscopy was. Denies any recent trauma or surgery. Denies any prolonged travel. Denies any familial or personal history of blood clots. Denies history of malignancy. D-dimer was elevated at 3.07. A follow-up chest CTA was positive for pulmonary emboli on the left, moderate burden scattered throughout the lobar, segmental, and subsegmental branches of the lower lobe. No CT evidence of right heart strain. Also found to have a right lower extremity popliteal DVT. IVC filter was placed. The patient underwent further workup for GI bleed and the patient was found to have a clear base 1 cm gastric ulcer in the proximal body of stomach along with a moderate degree of antral gastritis and a moderate-sized hiatal hernia. Colonoscopy showed diverticulosis without evidence of any malignancy. Since her discharge, she has not received any anticoagulation. The patient had a stable hemoglobin of 8.4. The discharge hemoglobin was at 9.1. For now, the patient is having significant difficulties in right lower extremity swelling which has gotten worse since her discharge meds make her very uncomfortable. Electrolytes are stable. Troponins are negative. On today's evaluation of 05/30/2023, patient remains on room air oxygen without any respiratory difficulties. She has an IVC filter in place and she is complaining of significant swelling in the right lower extremity which has gotten worse since yesterday. A repeat ultrasound of the right lower extremity shows extensive DVT throughout the right lower extremity. There is clots in the femoral vein, popliteal vein and proximal Veins and the common femoral vein. This is making the patient quite uncomfortable as she is having pressure and tightness in the right lower extremity. Awaiting vascular surgery evaluation. Meanwhile, and hemoglobin today is at 8.5 which is stable. No evidence of any GI bleeding. She remains on Protonix. Objective - Vital Signs Vital signs: Vital Signs Temp 98.9 F 05/30/23 07:25 Pulse 82 05/30/23 07:25 Resp 18 05/30/23 08:00 BP 122/73 05/30/23 07:25 Pulse Ox 93 L 05/30/23 07:25 FiO2 Intake & Output 05/29/23 05/30/23 05/30/23 18:59 06:59 18:59 Output Total 98 Balance -98 Output: Post Void Residual 98 Other: Voiding Method Toilet Toilet # Voids 3 1 - Exam GENERAL EXAM: Alert, 83-year-old white female, comfortable in no apparent distress. HEAD: Normocephalic and atraumatic EYES: Normal reaction of pupils, equal size. NOSE: Clear with pink turbinates. THROAT: No erythema or exudates. NECK: No masses, no JVD. CHEST: No chest wall deformity. LUNGS: Equal air entry with diminished left lower lung sounds. On room air. No conversational dyspnea or accessory muscle use.. CVS: S1 and S2 normal with no audible murmur, regular rhythm. No extra heart sounds ABDOMEN: No hepatosplenomegaly, active bowel sounds, no guarding or rigidity. SPINE: No scoliosis or deformity SKIN: No rashes CENTRAL NERVOUS SYSTEM: No focal deficits, tone is normal in all 4 extremities. EXTREMITIES: Significant edema of the right lower extremity, no edema on the left, no cyanosis or clubbing - Labs CBC & Chem 7: 05/30/23 12:02 05/30/23 12:02 Labs: Abnormal Lab Results - Last 24 Hours (Table) 05/30/23 05/30/23 Range/Units 12:02 12:02 WBC 12.6 H (3.8-10.6) k/uL Hgb 8.5 L (11.4-16.0) gm/dL Hct 29.8 L (34.0-46.0) % MCV 75.1 L (80.0-100.0) fL MCH 21.5 L (25.0-35.0) pg MCHC 28.6 L (31.0-37.0) g/dL RDW 22.5 H (11.5-15.5) % Carbon Dioxide 17 L (22-30) mmol/L AST 48 H (14-36) U/L Microbiology - Last 24 Hours (Table) 05/28/23 18:45 Blood Culture - Preliminary Blood 05/28/23 18:30 Blood Culture Gram Stain - Preliminary Blood Assessment and Plan Plan: Pulmonary embolism related to a right lower extremity DVT/popliteal and the patient was given an IVC filter due to contraindication to anticoagulation as the patient was found to have a gastric ulcer with a clean base measuring 1 cm on an EGD and the patient had significant blood loss anemia on an earlier hospitalization. The patient was discharged home on 05/24/2023 Right lower extremity DVT popliteal with progressive worsening and edema, with extensive clotting of the right lower extremity including, femoral, right femor al, popliteal and calf veins. History of IVC filter placement Acute blood loss anemia secondary to GI bleed secondary to gastric ulcer 1 cm, hemoglobin is stable for now at 5 Gastric ulcer along with antral gastritis and moderate-sized hiatal hernia Chronic diverticulosis Small left-sided pleural effusion Plan The patient will need any medicines vascular surgery consultation Keep the right lower extremity elevated No anticoagulation for now and the patient has an IVC filter and hemoglobin is stable The progressive swelling in the right lower extremity is of concern. Pulmonary status is stable and the patient is not having any significant shortness of breath Chest x-ray shows improvement in the small left-sided pleural effusion Continue PPI regarding healing of the gastric ulcer We'll continue to follow
[2023-05-30 14:00] VITALS: BMI 21.7
--- NOTE | 2023-05-30 14:11 | P.GSCN ---
History of Present Illness Consult date: 05/30/23 History of present illness: Patient is an 83-year-old female who was recently hospitalized with shortness of breath found to have a PE as well as evidence of severe GI bleed with a hemoglobin of I 0.9. Endoscopy was done and she was found to have a clear based ulcer with gastritis and hiatal hernia. Due to these findings a IVC filter was placed and she was discharged home on 05/24/2023. Since that at home she has not been wearing compression stocking as noted worsening swelling of her right lower extremity. She came back to the hospital. She states her pain is mostly with the tightness and swelling. She denies any motor sensory changes. She denies any blood per rectum or evidence of bleeding otherwise. Past Medical History Past Medical History: Deep Vein Thrombosis (DVT), GI Bleed, Pulmonary Embolus (PE) Additional Past Medical History / Comment(s): Blood clot in right leg, and a clot in the lung as well. History of Any Multi-Drug Resistant Organisms: None Reported Past Surgical History: No Surgical Hx Reported Additional Past Surgical History / Comment(s): beryl to lt arm removed Past Anesthesia/Blood Transfusion Reactions: No Reported Reaction Past Psychological History: No Psychological Hx Reported Smoking Status: Never smoker Past Alcohol Use History: Occasional Past Drug Use History: None Reported - Past Family History Mother Family Medical History: Rheumatoid Arthritis (RA) Father Family Medical History: COPD Medications and Allergies Home Medications Medication Instructions Recorded Confirmed Type Pantoprazole Sodium [Protonix] 40 mg PO BID 30 Days #60 tab 05/24/23 05/28/23 Rx guaiFENesin [Mucinex] 600 mg PO Q12HR 7 Days #14 tab 05/24/23 05/28/23 Rx Allergies Allergy/AdvReac Type Severity Reaction Status Date / Time No Known Allergies Allergy Verified 05/28/23 18:29 Surgical - Exam Vital Signs Temp Pulse Resp BP Pulse Ox 97.9 F 95 20 79/55 100 05/28/23 16:09 05/28/23 16:09 05/28/23 16:09 05/28/23 16:09 05/28/23 16:09 GENERAL EXAM: Alert, 83-year-old white female, comfortable in no apparent distress. HEAD: Normocephalic and atraumatic EYES: Normal reaction of pupils, equal size. NOSE: Clear with pink turbinates. THROAT: No erythema or exudates. NECK: No masses, no JVD. CHEST: No chest wall deformity. LUNGS: No respiratory distress CVS: Regular in rate and rhythm ABDOMEN: No hepatosplenomegaly, active bowel sounds, no guarding or rigidity. SPINE: No scoliosis or deformity SKIN: No rashes CENTRAL NERVOUS SYSTEM: No focal deficits, tone is normal in all 4 extremities. EXTREMITIES: Significant edema of the right lower extremity, minimal edema left lower extremity. Easily palpable DP PT pulses bilaterally. Motor sensory intact. Bilateral feet are warm Results - Labs 05/30/23 12:02 05/30/23 12:02 Abnormal Lab Results - Last 24 Hours (Table) 05/30/23 05/30/23 Range/Units 12:02 12:02 WBC 12.6 H (3.8-10.6) k/uL Hgb 8.5 L (11.4-16.0) gm/dL Hct 29.8 L (34.0-46.0) % MCV 75.1 L (80.0-100.0) fL MCH 21.5 L (25.0-35.0) pg MCHC 28.6 L (31.0-37.0) g/dL RDW 22.5 H (11.5-15.5) % Carbon Dioxide 17 L (22-30) mmol/L AST 48 H (14-36) U/L Microbiology - Last 24 Hours (Table) 05/28/23 18:45 Blood Culture - Preliminary Blood 05/28/23 18:30 Blood Culture Gram Stain - Preliminary Blood Diabetes panel 05/30/23 Range/Units 12:02 Sodium 138 (137-145) mmol/L Potassium 5.1 (3.5-5.1) mmol/L Chloride 106 (98-107) mmol/L Carbon Dioxide 17 L (22-30) mmol/L BUN 11 (7-17) mg/dL Creatinine 0.66 (0.52-1.04) mg/dL Glucose 84 (74-99) mg/dL Calcium 9.5 (8.4-10.2) mg/dL AST 48 H (14-36) U/L ALT 18 (4-34) U/L Alkaline Phosphatase 89 (38-126) U/L Total Protein 7.2 (6.3-8.2) g/dL Albumin 3.7 (3.5-5.0) g/dL Calcium panel 05/30/23 Range/Units 12:02 Calcium 9.5 (8.4-10.2) mg/dL Albumin 3.7 (3.5-5.0) g/dL Pituitary panel 05/30/23 Range/Units 12:02 Sodium 138 (137-145) mmol/L Potassium 5.1 (3.5-5.1) mmol/L Chloride 106 (98-107) mmol/L Carbon Dioxide 17 L (22-30) mmol/L BUN 11 (7-17) mg/dL Creatinine 0.66 (0.52-1.04) mg/dL Glucose 84 (74-99) mg/dL Calcium 9.5 (8.4-10.2) mg/dL Adrenal panel 05/30/23 Range/Units 12:02 Sodium 138 (137-145) mmol/L Potassium 5.1 (3.5-5.1) mmol/L Chloride 106 (98-107) mmol/L Carbon Dioxide 17 L (22-30) mmol/L BUN 11 (7-17) mg/dL Creatinine 0.66 (0.52-1.04) mg/dL Glucose 84 (74-99) mg/dL Calcium 9.5 (8.4-10.2) mg/dL Total Bilirubin 0.6 (0.2-1.3) mg/dL AST 48 H (14-36) U/L ALT 18 (4-34) U/L Alkaline Phosphatase 89 (38-126) U/L Total Protein 7.2 (6.3-8.2) g/dL Albumin 3.7 (3.5-5.0) g/dL Assessment and Plan Assessment: Right lower extremity DVT with progressive worsening and edema Pulmonary embolism Recent GI bleed requiring IVC filter History of acute blood loss anemia recently, current hemoglobin stable Gastric ulcer with hiatal hernia Plan: Resident progression of swelling due to patient not being anticoagulated. This did we'll order a CT venous phase to evaluate the extent if it does go up into the iliac versus IVC at the level of the cava. If it is up this high we discussed there would potentially need to be more aggressive intervention. We discussed high risk of utilizing TPA for thrombolytics. Her recent GI bleeding. Would avoid continuous thrombolytics via catheter, potentially could use procedural TPA for AngioJet but also discussed conservative measures including compression and elevation as the patient has no evidence of phlegmasia versus trialing heparin as the patient had a clean based ulceration. At this point multiple schedules had with the family as well as pulmonary and internal medicine. We'll plan to initiate heparin drip without bolus and evaluate labs patient and family seemingly understands plan and willing to proceed.
[2023-05-30] MEDS ORDERED: HEPARIN SODIUM 1,000 UN/ML (10ML VL) IV PRN (14:16)
--- NOTE | 2023-05-30 14:38 | P.PN ---
Subjective Progress Note Date: 05/30/23 patient is a 83-year-old lady with past medical significant for recently diagnosed PE, gastric ulcer who presented to the ER for evaluation for generalized weakness and debility. Patient was only recently discharged after being admitted to the hospital for evaluation for anemia, during that visit patient had chest CTA which was positive for pulmonary emboli on the left, m oderate burden scattered throughout the lobar, segmental, and subsegmental branches of the lower lobe. Patient was not anticoagulated secondary to anemia and underwent EGD which revealed a gastric ulcer, hiatal hernia, gastritis, and extensive diverticulosis, Because of the PE, patient had IVC filter placed by vascular surgery, patient was discharged on oral Protonix. Patient stated that since her discharge she has been noticing increasing weakness. Patient getting short of breath on exertion. Patient complaining of generalized weakness. Patient also started noticing that her life lower extremity was swollen. Patient did not notice any blood in her stools. There was no complain of nausea or vomiting. Denied any chest pain. There was no complain of orthopnea or PND. There was no swelling of feet. Patient even felt as if she were to pass out. Because of the symptoms, patient came back to the ER Initial lab work done in the ER showed 213, hemoglobin 8.4, platelet count 326, sodium 137, potassium 4.7, BUN 16, creatinine 0.77 UA done showed nitrite negative, leukocyte esterase trace amounts, urine WBC 11 Influenza a not detected Influenza B not detected COVID-19 not detected. EKG done showed normal sinus rhythm, heart rate 85, non-ST segment elevation seen, no T-wave inversion Chest x-ray done in the ER showed left pleural effusion which is decreased from before Patient admitted to internal medicine service 05/30. Patient seen and examined. Duplex ultrasound done showed extensive DVT throughout right lower extremity. Complaining of swelling of her right lower extremity, states she is unable to put any weight on it. Vascular surgery evaluated the patient, discussed with family in detail, they're starting patient on heparin, family agreeable. REVIEW OF SYSTEMS: CONSTITUTIONAL: No fever, no malaise,. CARDIOVASCULAR: No chest pain, no palpitations, no syncope. PULMONARY: No shortness of breath, no cough, GASTROINTESTINAL: No diarrhea, no nausea, no vomiting, no abdominal pain. NEUROLOGICAL: No headaches, no weakness, PHYSICAL EXAMINATION: GENERAL: The patient is alert and oriented x3, not in any acute distress. Well developed, well nourished. HEENT: Pupils are round and equally reacting to light. EOMI. No scleral icterus. No conjunctival pallor. Normocephalic, atraumatic. No pharyngeal erythema. No thyromegaly. CARDIOVASCULAR: S1 and S2 present. No murmurs, rubs, or gallops. PULMONARY: Chest is clear to auscultation, no wheezing or crackles. ABDOMEN: Soft, nontender, nondistended, normoactive bowel sounds. No palpable organomegaly. MUSCULOSKELETAL: Right lower extremity swollen EXTREMITIES: No cyanosis, clubbing, or pedal edema. NEUROLOGICAL: Gross neurological examination did not reveal any focal deficits. SKIN: No rashes. Assessment and plan Dizziness Generalized weakness Debility Pulmonary embolism Right lower extremity DVT Acute Blood loss anemia GI bleed Gastric ulcer Gastritis Hiatal hernia Monitor vital signs Monitor CBC Monitor CMP Continue telemetry monitoring Blood cultures ordered most likely contaminant. Trend troponin Duplex ultrasound of right lower extremity showed extensive DVT Started patient on heparin pharmacy dose per vascular surgery, risk versus benefits of patient being placed on anticoagulation were discussed by vascular surgery, family agreeable Continue Protonix Continue IV Rocephin Vascular surgery following PT and OT following Pulmonary following Labs and medication were reviewed.. Continue same treatment. Continue with sy mptomatic treatment. Resume home medication. Monitor labs and vitals. DVT and GI prophylaxis. Further recommendations as per clinical course of the patient Dictation was produced using [employer] dictation software. please excuse any grammatical, word or spelling errors. Objective - Vital Signs Vital signs: Vital Signs Temp 98.9 F 05/30/23 07:25 Pulse 82 05/30/23 07:25 Resp 18 05/30/23 08:00 BP 122/73 05/30/23 07:25 Pulse Ox 93 L 05/30/23 07:25 FiO2 Intake & Output 05/29/23 05/30/23 05/30/23 18:59 06:59 18:59 Output Total 98 Balance -98 Output: Post Void Residual 98 Other: Voiding Method Toilet Toilet # Voids 3 1 - Labs CBC & Chem 7: 05/30/23 12:02 05/30/23 12:02 Labs: Microbiology - Last 24 Hours (Table) 05/28/23 18:45 Blood Culture - Preliminary Blood 05/28/23 18:30 Blood Culture Gram Stain - Preliminary Blood
[2023-05-30 15:19] LABS: Partial Thromboplastin Time 28.3 sec (22.0-30.0); Prothrombin Time 11.3 sec (10.0-12.5)
[2023-05-30] MEDS: HEPARIN SOD,PORK IN 0.45% NACL 25,000 UNIT in 0.45% NACL 1 250ML.BAG IV SCH (15:49)
--- NOTE | 2023-05-30 15:58 | CT ---
EXAMINATION TYPE: CT abdomen pelvis w con CT DLP: 1016.8 mGycm, Automated exposure control for dose reduction was used. DATE OF EXAM: 05/30/2023 3:11 PM COMPARISON: CT abdomen pelvis most recent from CLINICAL INDICATION:Female, 83 years old with history of extensive deep vein thrombus; Extensive deep vein thrombus. Hx DVT, PE. Weakness, debility, increased WBC. TECHNIQUE: Axial CT abdomen pelvis w con;Sagittal and coronal reformats were created on a separate w orkstation. Contrast used:100 mL of Isovue 300 with IV Contrast, (none if empty) Oral contrast used: without Oral Contrast (none if empty) FINDINGS: LOWER CHEST: Unremarkable ABDOMEN LIVER: Unremarkable GALLBLADDER AND BILE DUCTS: Unremarkable. PANCREAS: Unremarkable. SPLEEN: Unremarkable. ADRENAL GLANDS: Unremarkable. KIDNEYS AND URETERS: No evidence of hydronephrosis or renal calculus. The ureters are unremarkable. PELVIS BLADDER: Unremarkable REPRODUCTIVE: Unremarkable. ABDOMEN & PELVIS STOMACH AND BOWEL: Large hiatal hernia. No evidence of bowel obstruction. The appendix is normal. Sca ttered colonic diverticulosis. Coarse in the sigmoid rectal region. PERITONEUM/RETROPERITONEUM: No evidence of pneumoperitoneum or free fluid. VASCULATURE: No evidence of aortic aneurysm. IVC filter in place. Atherosclerosis of the arterial vas culature. MUSCULOSKELETAL: No acute osseous abnormalities LYMPH NODES: No gross evidence for lymphadenopathy. SOFT TISSUE/ABDOMINAL WALL: Diffuse anasarca of the right lower upper aspect of the lower extremity s ubcutaneous tissues and within the deep pelvis and around the IVC. IMPRESSION: 1. Anasarca of the right lower extremity and around the pelvis and inferior vena cava. Finding could be secondary to extensive deep vein tendinosis. 2. No evidence for acute infectious abdominal or pelvis process. 3. Large hiatal hernia. 4. Colonic diverticulosis.
[2023-05-30 22:07] LABS: INR 1.1 (<1.2); Prothrombin Time 12.1 sec (10.0-12.5)
[2023-05-31 05:20] LABS: ALT 18 U/L (4-34); AST 40 U/L (14-36); African American GFR (CKD) >90 (>60 ml/min/1.73 sqM); Albumin 3.4 g/dL (3.5-5.0); Albumin/Globulin Ratio 1.1; Alkaline Phosphatase 109 U/L (38-126); Anion Gap 11 mmol/L; Blood Urea Nitrogen 10 mg/dL (7-17); Calcium 9.1 mg/dL (8.4-10.2); Carbon Dioxide 22 mmol/L (22-30); Chloride 102 mmol/L (98-107); Globulin 3.1 g/dL; Glucose 105 mg/dL (74-99); Non-African American GFR(CKD) 83 (>60 ml/min/1.73 sqM); Potassium 4.2 mmol/L (3.5-5.1); Sodium 135 mmol/L (137-145); Total Bilirubin 0.5 mg/dL (0.2-1.3); Total Protein 6.5 g/dL (6.3-8.2)
[2023-05-31] MEDS: PANTOPRAZOLE 40 MG TABLET PO SCH ×2 (06:23→17:32)
[2023-05-31 10:33] LABS: MCHC 28.6 g/dL (32.0-37.0); MCV 73.5 FL (80.0-97.0); Mean Platelet Volume 9.8 FL (9.5-12.2); NRBC Per 100 WBC 0 X 10*3/uL (0.00-0.01); Platelet Count 352 X 10*3/uL (140-440); RBC 3.81 X 10*6/uL (4.10-5.20); RDW 25.7 % (11.5-14.5); WBC 13.11 X 10*3/uL (4.50-10.00)
[2023-05-31] MEDS: guaiFENesin 600 MG TABLET.ER PO SCH ×2 (10:36→20:09)
[2023-05-31] MEDS: ACETAMINOPHEN TAB 325 MG TAB PO PRN ×2 (10:50→20:09)
[2023-05-31 11:21] LABS: Anisocytosis (M) 2+; Basophils # (A) 0.09 X 10*3/uL (0.00-0.10); Basophils % (A) 0.7 %; Eosinophils # (A) 0.28 X 10*3/uL (0.04-0.35); Eosinophils % (A) 2.1 %; Lymphocytes % (A) 9.2 %; Microcytosis (M) 2+; Monocytes # (A) 1.44 X 10*3/uL (0.20-1.00); Neutrophils # (A) 10.03 X 10*3/uL (1.80-7.70); Neutrophils % (A) 76.5 %; Schistocytes 1+
--- NOTE | 2023-05-31 12:12 | P.PN ---
Subjective Progress Note Date: 05/31/23 patient is a 83-year-old lady with past medical significant for recently diagnosed PE, gastric ulcer who presented to the ER for evaluation for generalized weakness and debility. Patient was only recently discharged after being admitted to the hospital for evaluation for anemia, during that visit patient had chest CTA which was positive for pulmonary emboli on the left, m oderate burden scattered throughout the lobar, segmental, and subsegmental branches of the lower lobe. Patient was not anticoagulated secondary to anemia and underwent EGD which revealed a gastric ulcer, hiatal hernia, gastritis, and extensive diverticulosis, Because of the PE, patient had IVC filter placed by vascular surgery, patient was discharged on oral Protonix. Patient stated that since her discharge she has been noticing increasing weakness. Patient getting short of breath on exertion. Patient complaining of generalized weakness. Patient also started noticing that her life lower extremity was swollen. Patient did not notice any blood in her stools. There was no complain of nausea or vomiting. Denied any chest pain. There was no complain of orthopnea or PND. There was no swelling of feet. Patient even felt as if she were to pass out. Because of the symptoms, patient came back to the ER Initial lab work done in the ER showed 213, hemoglobin 8.4, platelet count 326, sodium 137, potassium 4.7, BUN 16, creatinine 0.77 UA done showed nitrite negative, leukocyte esterase trace amounts, urine WBC 11 Influenza a not detected Influenza B not detected COVID-19 not detected. EKG done showed normal sinus rhythm, heart rate 85, non-ST segment elevation seen, no T-wave inversion Chest x-ray done in the ER showed left pleural effusion which is decreased from before Patient admitted to internal medicine service 05/30. Patient seen and examined. Duplex ultrasound done showed extensive DVT throughout right lower extremity. Complaining of swelling of her right lower extremity, states she is unable to put any weight on it. Vascular surgery evaluated the patient, discussed with family in detail, they're starting patient on heparin, family agreeable. 05/31/23 patient seen and examined. Still has swelling of right lower extremity but pain is improved. Patient is ambulating today as well. Labs this morning showed hemoglobin of 8 REVIEW OF SYSTEMS: CONSTITUTIONAL: No fever, no malaise,. CARDIOVASCULAR: No chest pain, no palpitations, no syncope. PULMONARY: No shortness of breath, no cough, GASTROINTESTINAL: No diarrhea, no nausea, no vomiting, no abdominal pain. NEUROLOGICAL: No headaches, no weakness, PHYSICAL EXAMINATION: GENERAL: The patient is alert and oriented x3, not in any acute distress. Well developed, well nourished. HEENT: Pupils are round and equally reacting to light. EOMI. No scleral icterus. No conjunctival pallor. Normocephalic, atraumatic. No pharyngeal erythema. No thyromegaly. CARDIOVASCULAR: S1 and S2 present. No murmurs, rubs, or gallops. PULMONARY: Chest is clear to auscultation, no wheezing or crackles. ABDOMEN: Soft, nontender, nondistended, normoactive bowel sounds. No palpable organomegaly. MUSCULOSKELETAL: Right lower extremity swollen EXTREMITIES: No cyanosis, clubbing, or pedal edema. NEUROLOGICAL: Gross neurological examination did not reveal any focal deficits. SKIN: No rashes. Assessment and plan Dizziness Generalized weakness Debility Pulmonary embolism Extension of Right lower extremity DVT Acute Blood loss anemia GI bleed Gastric ulcer Gastritis Hiatal hernia Monitor vital signs Monitor CBC Monitor CMP Continue telemetry monitoring Blood cultures ordered most likely contaminant. Duplex ultrasound of right lower extremity showed extensive DVT Started patient on heparin pharmacy dose per vascular surgery, risk versus benefits of patient being placed on anticoagulation were discussed by vascular surgery, family agreeable on 05/30. Continue pharmacy dose heparin Continue Protonix Continue IV Rocephin Vascular surgery following PT and OT following Pulmonary following Labs and medication were reviewed.. Continue same treatment. Continue with symptomatic treatment. Resume home medication. Monitor labs and vitals. DVT and GI prophylaxis. Further recommendations as per clinical course of the patient Dictation was produced using [employer] dictation software. please excuse any grammatical, word or spelling errors. Objective - Vital Signs Vital signs: Vital Signs Temp 98.0 F 05/31/23 08:00 Pulse 88 05/31/23 08:00 Resp 17 05/31/23 08:00 BP 115/72 05/31/23 08:00 Pulse Ox 95 05/31/23 08:00 FiO2 Intake & Output 05/30/23 05/31/23 05/31/23 18:59 06:59 18:59 Weight 52.163 kg Other: Voiding Method Toilet # Voids 3 1 1 - Labs CBC & Chem 7: 05/31/23 04:25 05/31/23 04:25 Labs: Abnormal Lab Results - Last 24 Hours (Table) 05/30/23 05/30/23 05/30/23 Range/Units 12:02 12:02 20:22 WBC 12.6 H (3.8-10.6) k/uL Hgb 8.5 L (11.4-16.0) gm/dL Hct 29.8 L (34.0-46.0) % MCV 75.1 L (80.0-100.0) fL MCH 21.5 L (25.0-35.0) pg MCHC 28.6 L (31.0-37.0) g/dL RDW 22.5 H (11.5-15.5) % APTT 34.6 H (22.0-30.0) sec Sodium (137-145) mmol/L Carbon Dioxide 17 L (22-30) mmol/L Glucose (74-99) mg/dL AST 48 H (14-36) U/L Albumin (3.5-5.0) g/dL 05/31/23 05/31/23 Range/Units 04:25 08:36 WBC (3.8-10.6) k/uL Hgb (11.4-16.0) gm/dL Hct (34.0-46.0) % MCV (80.0-100.0) fL MCH (25.0-35.0) pg MCHC (31.0-37.0) g/dL RDW (11.5-15.5) % APTT 40.0 H (22.0-30.0) sec Sodium 135 L (137-145) mmol/L Carbon Dioxide (22-30) mmol/L Glucose 105 H (74-99) mg/dL AST 40 H (14-36) U/L Albumin 3.4 L (3.5-5.0) g/dL Microbiology - Last 24 Hours (Table) 05/28/23 18:45 Blood Culture - Preliminary Blood 05/29/23 11:55 Urine Culture - Final Urine,Voided
--- NOTE | 2023-05-31 14:15 | P.PN ---
Subjective Progress Note Date: 05/31/23 Patient is being seen in consultation for recent pulmonary embolism. The patient was discharged home on 05/24/2023 to be readmitted with worsening right lower extremity edema and some dizziness. Nontender worsening shortness of breath. The patient remains on room air oxygen. The patient had a chest x-ray in the emergency department that showed improvement in the left lower lobe small pleural effusion. Otherwise, no hemoptysis or pleurisy. Noted the patient is not receiving any anticoagulation due to a recent GI bleed due to a gastric ulcer. The patient was given IVC filter accordingly. In summary, this patient is 83 and she was recently hospitalized for exertional shortness of breath. De nies any fevers, chills, cough, chest pain, hemoptysis. Her hemoglobin level was found to be low on outpatient labs, and she was directed to the emergency room. Hemoglobin level at our facility was 5.9 g/dL. She was transfused 2 units PRBCs, and repeat hemoglobin level is up to 8.5 g/dL. She denies any GI bleeding. Denies any melena. Denies any nausea, vomiting, hematemesis. Denies any abdominal pain. Does not take any anticoagulants. Denies frequent NSAID use. Occasionally takes Aleve. Unsure of when her last colonoscopy was. Denies any recent trauma or surgery. Denies any prolonged travel. Denies any familial or personal history of blood clots. Denies history of malignancy. D-dimer was elevated at 3.07. A follow-up chest CTA was positive for pulmonary emboli on the left, moderate burden scattered throughout the lobar, segmental, and subsegmental branches of the lower lobe. No CT evidence of right heart strain. Also found to have a right lower extremity popliteal DVT. IVC filter was placed. The patient underwent further workup for GI bleed and the patient was found to have a clear base 1 cm gastric ulcer in the proximal body of stomach along with a moderate degree of antral gastritis and a moderate-sized hiatal hernia. Colonoscopy showed diverticulosis without evidence of any malignancy. Since her discharge, she has not received any anticoagulation. The patient had a stable hemoglobin of 8.4. The discharge hemoglobin was at 9.1. For now, the patient is having significant difficulties in right lower extremity swelling which has gotten worse since her discharge meds make her very uncomfortable. Electrolytes are stable. Troponins are negative. On today's evaluation of 05/30/2023, patient remains on room air oxygen without any respiratory difficulties. She has an IVC filter in place and she is complaining of significant swelling in the right lower extremity which has gotten worse since yesterday. A repeat ultrasound of the right lower extremity shows extensive DVT throughout the right lower extremity. There is clots in the femoral vein, popliteal vein and proximal Veins and the common femoral vein. This is making the patient quite uncomfortable as she is having pressure and tightness in the right lower extremity. Awaiting vascular surgery evaluation. Meanwhile, and hemoglobin today is at 8.5 which is stable. No evidence of any GI bleeding. She remains on Protonix. On today's evaluation of 05/31/2023, the patient's right lower extremity is wrapped, elevated, the patient was started on IV heparin. I did discussion yesterday with a vascular surgeon. We decided to proceed with anticoagulation once the patient closely for any GI bleeding. Fortunately, hemoglobin stable at 8.0. She has not demonstrated any bleeding since yesterday. She remains on room air oxygen. No shortness of breath. She has a white cell count of 3.8, hemoglobin stable at 8, normal platelets, sodium is at 135 and a potassium level of 4.2, BUN is at 10 with a creatinine of 0.6. PTT is at 40. Vascular surgeries on the case and the patient was evaluated by Dr. Leeanna Ortega. As mentioned, due to her recent GI bleed, she is on a candidate for catheter directed thrombolytic therapy she was treated conservatively at this point in time. Objective - Vital Signs Vital signs: Vital Signs Temp 98.0 F 05/31/23 08:00 Pulse 88 05/31/23 08:00 Resp 16 05/31/23 08:00 BP 115/72 05/31/23 08:00 Pulse Ox 95 05/31/23 08:00 FiO2 Intake & Output 05/30/23 05/31/23 05/31/23 18:59 06:59 18:59 Intake Total 115.966 Balance 115.966 Weight 52.163 kg Intake: Intake, IV Titration 115.966 Amount Heparin Sod,Pork in 0.45% 115.966 NaCl 25,000 unit In 0.45 % NaCl 1 250ml.bag @ 12 UNITS/KG/HR 6.26 mls/hr IV .Q[facility]H [facility] Rx#: [id number] Other: Voiding Method Toilet # Voids 3 1 2 - Exam GENERAL EXAM: Alert, 83-year-old white female, comfortable in no apparent distress. HEAD: Normocephalic and atraumatic EYES: Normal reaction of pupils, equal size. NOSE: Clear with pink turbinates. THROAT: No erythema or exudates. NECK: No masses, no JVD. CHEST: No chest wall deformity. LUNGS: Equal air entry with diminished left lower lung sounds. On room air. No conversational dyspnea or accessory muscle use.. CVS: S1 and S2 normal with no audible murmur, regular rhythm. No extra heart sounds ABDOMEN: No hepatosplenomegaly, active bowel sounds, no guarding or rigidity. SPINE: No scoliosis or deformity SKIN: No rashes CENTRAL NERVOUS SYSTEM: No focal deficits, tone is normal in all 4 extremities. EXTREMITIES: Significant edema of the right lower extremity, no edema on the left, no cyanosis or clubbing. The leg is elevated and the appropriate wrapping was also done - Labs CBC & Chem 7: 05/31/23 04:25 05/31/23 04:25 Labs: Abnormal Lab Results - Last 24 Hours (Table) 05/30/23 05/31/23 05/31/23 Range/Units 20:22 04:25 04:25 WBC 13.11 H (4.50-10.00) X 10*3/uL RBC 3.81 L (4.10-5.20) X 10*6/uL Hgb 8.0 L (12.0-15.0) g/dL Hct 28.0 L (37.2-46.3) % MCV 73.5 L (80.0-97.0) FL MCH 21.0 L (27.0-32.0) pg MCHC 28.6 L (32.0-37.0) g/dL RDW 25.7 H (11.5-14.5) % Immature Gran # 0.07 H (0.00-0.04) X 10*3/uL Neutrophils # 10.03 H (1.80-7.70) X 10*3/uL Monocytes # 1.44 H (0.20-1.00) X 10*3/uL Anisocytosis (manual) 2+ A Microcytosis (manual) 2+ A Schistocytes 1+ A APTT 34.6 H (22.0-30.0) sec Sodium 135 L (137-145) mmol/L Glucose 105 H (74-99) mg/dL AST 40 H (14-36) U/L Albumin 3.4 L (3.5-5.0) g/dL 05/31/23 Range/Units 08:36 WBC (4.50-10.00) X 10*3/uL RBC (4.10-5.20) X 10*6/uL Hgb (12.0-15.0) g/dL Hct (37.2-46.3) % MCV (80.0-97.0) FL MCH (27.0-32.0) pg MCHC (32.0-37.0) g/dL RDW (11.5-14.5) % Immature Gran # (0.00-0.04) X 10*3/uL Neutrophils # (1.80-7.70) X 10*3/uL Monocytes # (0.20-1.00) X 10*3/uL Anisocytosis (manual) Microcytosis (manual) Schistocytes APTT 40.0 H (22.0-30.0) sec Sodium (137-145) mmol/L Glucose (74-99) mg/dL AST (14-36) U/L Albumin (3.5-5.0) g/dL Microbiology - Last 24 Hours (Table) 05/28/23 18:30 Blood Culture Gram Stain - Preliminary Blood Blood Culture - Preliminary Coagulase Negative Staph 05/28/23 18:45 Blood Culture - Preliminary Blood 05/29/23 11:55 Urine Culture - Final Urine,Voided Assessment and Plan Plan: Pulmonary embolism related to a right lower extremity DVT/popliteal and the patient was given an IVC filter due to contraindication to anticoagulation as the patient was found to have a gastric ulcer with a clean base measuring 1 cm on an EGD and the patient had significant blood loss anemia on an earlier hospitalization. The patient was discharged home on 05/24/2023 Right lower extremity DVT popliteal with progressive worsening and edema, with extensive clotting of the right lower extremity including, femoral, right femoral, popliteal and calf veins.. The patient has significant pressure edema in the right lower extremity. Restasis urges been involved. We decided to go with conservative measurements and the patient was started on IV heparin with close monitoring of the hemoglobin and monitoring for any signs of GI bleeding. Leg is elevated History of IVC filter placement Acute blood loss anemia secondary to GI bleed secondary to gastric ulcer 1 cm, hemoglobin is stable for now at 5, current hemoglobin is at 8 Gastric ulcer along with antral gastritis and moderate-sized hiatal hernia Chronic diverticulosis Small left-sided pleural effusion Plan Discussed the case with vascular surgery. We'll continue the IV heparin for now Keep the right lower extremity elevated and the appropriate pressure wrapping was done. Obvious contraindication for catheter directed normal limits except the patient has undergone a recent GI bleed The progressive swelling in the right lower extremity is of concern. Pulmonary status is stable and the patient is not having any significant shortness of breath Chest x-ray shows improvement in the small left-sided pleural effusion Continue PPI regarding healing of the gastric ulcer Monitor hemoglobin is currently at 8 Check iron studies and replace iron if there is significant deficiency. This should also improve her hemoglobin level. We'll continue to follow
[2023-05-31 15:28] LABS: INR 1.16 sec (0.93-1.11); Prothrombin Time 12.4 sec (9.9-11.9)
[2023-05-31] MEDS: HEPARIN SOD,PORK IN 0.45% NACL 25,000 UNIT in 0.45% NACL 1 250ML.BAG IV SCH (16:50)
[2023-06-01] MEDS: HEPARIN SOD,PORK IN 0.45% NACL 25,000 UNIT in 0.45% NACL 1 250ML.BAG IV SCH (00:52)
[2023-06-01] MEDS: PANTOPRAZOLE 40 MG TABLET PO SCH ×2 (06:31→17:28)
[2023-06-01 08:23] LABS: % Iron Saturation 3.68 (12.00-45.00)
[2023-06-01] MEDS ORDERED: DOCUSATE 100 MG CAP PO PRN (08:35)
[2023-06-01] MEDS ORDERED: MAGNESIUM HYDROXIDE 2,400 MG/30 ML CUP PO PRN (08:36)
[2023-06-01 08:45] LABS: Basophils # (A) 0.11 X 10*3/uL (0.00-0.10); Basophils % (A) 0.9 %; Eosinophils # (A) 0.28 X 10*3/uL (0.04-0.35); Eosinophils % (A) 2.3 %; HCT 26.4 % (37.2-46.3); HGB 7.6 g/dL (12.0-15.0); Lymphocytes # (A) 0.94 X 10*3/uL (0.90-5.00); Lymphocytes % (A) 7.7 %; MCH 20.7 pg (27.0-32.0); MCHC 28.8 g/dL (32.0-37.0); MCV 71.9 FL (80.0-97.0); Mean Platelet Volume 9.3 FL (9.5-12.2); Monocytes # (A) 1.33 X 10*3/uL (0.20-1.00); Monocytes % (A) 10.9 %; NRBC Per 100 WBC 0 X 10*3/uL (0.00-0.01); Neutrophils % (A) 77.6 %; Platelet Count 380 X 10*3/uL (140-440); RBC 3.67 X 10*6/uL (4.10-5.20); RDW 25.1 % (11.5-14.5); WBC 12.23 X 10*3/uL (4.50-10.00)
--- NOTE | 2023-06-01 08:57 | P.PN ---
Subjective Progress Note Date: 06/01/23 Principal diagnosis: weakness This is an 83-year-old female who was recently admitted to the hospital and diagnosed with a PE and gastric ulcer who presented to the emergency room for generalized weakness. He did have an IVC filter placed by vascular surgery at recent admission. Due to her anemia she was not discharged on any anticoagulation. Patient is positive for DVT in the right lower extremity currently on heparin. This morning patient is seen and evaluated laying in bed. She reports she is not very hungry, has not had a bowel movement since she's been admitted. Objective - Vital Signs Vital signs: Vital Signs Temp 98.8 F 06/01/23 02:20 Pulse 88 06/01/23 02:20 Resp 21 06/01/23 02:20 BP 117/74 06/01/23 02:20 Pulse Ox 92 L 06/01/23 02:20 FiO2 Intake & Output 05/31/23 06/01/23 06/01/23 18:59 06:59 18:59 Intake Total 115.966 121.295 Balance 115.966 121.295 Intake: Intake, IV Titration 115.966 121.295 Amount Heparin Sod,Pork in 0.45% 115.966 121.295 NaCl 25,000 unit In 0.45 % NaCl 1 250ml.bag @ 12 UNITS/KG/HR 6.26 mls/hr IV .Q24H [facility] Rx#: [id number] Other: # Voids 3 1 - Constitutional General appearance: Present: cooperative, no acute distress - EENT Eyes: Present: PERRLA - Neck Neck: Present: normal ROM. Absent: lymphadenopathy, rigidity - Respiratory Respiratory: bilateral: CTA - Cardiovascular Rhythm: regular Heart sounds: normal: S1, S2 - Gastrointestinal General gastrointestinal: Present: soft. Absent: tenderness - Integumentary Integumentary: Present: normal, normal turgor - Musculoskeletal Musculoskeletal: Present: generalized weakness - Psychiatric Psychiatric: Present: A&O x's 3, appropriate affect, intact judgment & insight - Labs CBC & Chem 7: 06/01/23 06:15 05/31/23 04:25 Labs: Abnormal Lab Results - Last 24 Hours (Table) 05/31/23 05/31/23 05/31/23 Range/Units 04:25 04:25 08:36 WBC 13.11 H (4.50-10.00) X 10*3/uL RBC 3.81 L (4.10-5.20) X 10*6/uL Hgb 8.0 L (12.0-15.0) g/dL Hct 28.0 L (37.2-46.3) % MCV 73.5 L (80.0-97.0) FL MCH 21.0 L (27.0-32.0) pg MCHC 28.6 L (32.0-37.0) g/dL RDW 25.7 H (11.5-14.5) % MPV (9.5-12.2) FL Immature Gran # 0.07 H (0.00-0.04) X 10*3/uL Neutrophils # 10.03 H (1.80-7.70) X 10*3/uL Monocytes # 1.44 H (0.20-1.00) X 10*3/uL Basophils # (0.00-0.10) X 10*3/uL Anisocytosis (manual) 2+ A Microcytosis (manual) 2+ A Schistocytes 1+ A PT 12.4 H (9.9-11.9) sec INR 1.16 H (0.93-1.11) sec APTT 40.0 H (22.0-30.0) sec Iron (50-170) UG/DL % Saturation (12.00-45.00) 05/31/23 05/31/23 06/01/23 Range/Units 13:47 13:47 06:15 WBC (4.50-10.00) X 10*3/uL RBC (4.10-5.20) X 10*6/uL Hgb (12.0-15.0) g/dL Hct (37.2-46.3) % MCV (80.0-97.0) FL MCH (27.0-32.0) pg MCHC (32.0-37.0) g/dL RDW (11.5-14.5) % MPV (9.5-12.2) FL Immature Gran # (0.00-0.04) X 10*3/uL Neutrophils # (1.80-7.70) X 10*3/uL Monocytes # (0.20-1.00) X 10*3/uL Basophils # (0.00-0.10) X 10*3/uL Anisocytosis (manual) Microcytosis (manual) Schistocytes PT (9.9-11.9) sec INR (0.93-1.11) sec APTT 43.7 H 46.6 H (22.0-30.0) sec Iron 13 L (50-170) UG/DL % Saturation 3.68 L (12.00-45.00) 06/01/23 Range/Units 06:15 WBC 12.23 H (4.50-10.00) X 10*3/uL RBC 3.67 L (4.10-5.20) X 10*6/uL Hgb 7.6 L (12.0-15.0) g/dL Hct 26.4 L (37.2-46.3) % MCV 71.9 L (80.0-97.0) FL MCH 20.7 L (27.0-32.0) pg MCHC 28.8 L (32.0-37.0) g/dL RDW 25.1 H (11.5-14.5) % MPV 9.3 L (9.5-12.2) FL Immature Gran # 0.07 H (0.00-0.04) X 10*3/uL Neutrophils # 9.50 H (1.80-7.70) X 10*3/uL Monocytes # 1.33 H (0.20-1.00) X 10*3/uL Basophils # 0.11 H (0.00-0.10) X 10*3/uL Anisocytosis (manual) Microcytosis (manual) Schistocytes PT (9.9-11.9) sec INR (0.93-1.11) sec APTT (22.0-30.0) sec Iron (50-170) UG/DL % Saturation (12.00-45.00) Microbiology - Last 24 Hours (Table) 05/28/23 18:45 Blood Culture - Preliminary Blood 05/28/23 18:30 Blood Culture Gram Stain - Preliminary Blood Blood Culture - Preliminary Coagulase Negative Staph Assessment and Plan (1) DVT (deep venous thrombosis) Current Visit: Yes Status: Acute Code(s): I82.409 - ACUTE EMBOLISM AND THOMBOS UNSP DEEP VN UNSP LOWER EXTREMITY SNOMED Code(s): 325620789 (2) Weakness Current Visit: Yes Status: Acute Code(s): R53.1 - WEAKNESS SNOMED Code(s): 57390133 (3) Anemia Current Visit: No Status: Acute Code(s): D64.9 - ANEMIA, UNSPECIFIED S NOMED Code(s): 193024106 (4) Pulmonary embolism on left Current Visit: No Status: Acute Code(s): I26.99 - OTHER PULMONARY EMBOLISM WITHOUT ACUTE COR PULMONALE SNOMED Code(s): 27519139 Plan: Review heparin drip. Check CBC and CMP in the morning. We'll add Colace and milk of magnesia for constipation. Patient seen and evaluated by nurse practitioner, physician in agreement with plan
[2023-06-01] MEDS: guaiFENesin 600 MG TABLET.ER PO SCH ×2 (10:13→20:41)
[2023-06-01 11:10] LABS: ALT 14 U/L (8-44); AST 18 U/L (13-35); Albumin 3.3 g/dL (3.8-4.9); Albumin/Globulin Ratio 1.18 Ratio (1.60-3.17); Alkaline Phosphatase 100 U/L (41-126); BUN/Creat Ratio 14.86 Ratio (12.00-20.00); Blood Urea Nitrogen 10.4 mg/dL (9.0-27.0); Calcium 9.5 mg/dL (8.7-10.3); Carbon Dioxide 22.7 mmol/L (21.6-31.8); Chloride 105 mmol/L (96-109); Globulin 2.8 g/dL (1.6-3.3); Glucose 117 mg/dL (70-110); Potassium 4.4 mmol/L (3.5-5.5); Sodium 139 mmol/L (135-145); Total Bilirubin 0.2 mg/dL (0.3-1.2); Total Protein 6.1 g/dL (6.2-8.2)
--- NOTE | 2023-06-01 14:42 | P.PN ---
Subjective Progress Note Date: 06/01/23 Patient is being seen in consultation for recent pulmonary embolism. The patient was discharged home on 05/24/2023 to be readmitted with worsening right lower extremity edema and some dizziness. Nontender worsening shortness of breath. The patient remains on room air oxygen. The patient had a chest x-ray in the emergency department that showed improvement in the left lower lobe small pleural effusion. Otherwise, no hemoptysis or pleurisy. Noted the patient is not receiving any anticoagulation due to a recent GI bleed due to a gastric ulcer. The patient was given IVC filter accordingly. In summary, this patient is 83 and she was recently hospitalized for exertional shortness of breath. Den ies any fevers, chills, cough, chest pain, hemoptysis. Her hemoglobin level was found to be low on outpatient labs, and she was directed to the emergency room. Hemoglobin level at our facility was 5.9 g/dL. She was transfused 2 units PRBCs, and repeat hemoglobin level is up to 8.5 g/dL. She denies any GI bleeding. Denies any melena. Denies any nausea, vomiting, hematemesis. Denies any abdomi nal pain. Does not take any anticoagulants. Denies frequent NSAID use. Occasionally takes Aleve. Unsure of when her last colonoscopy was. Denies any recent trauma or surgery. Denies any prolonged travel. Denies any familial or personal history of blood clots. Denies history of malignancy. D-dimer was elevated at 3.07. A follow-up chest CTA was positive for pulmonary emboli on the left, moderate burden scattered throughout the lobar, segmental, and subsegmental branches of the lower lobe. No CT evidence of right heart strain. Also found to have a right lower extremity popliteal DVT. IVC filter was placed. The patient underwent further workup for GI bleed and the patient was found to have a clear base 1 cm gastric ulcer in the proximal body of stomach along with a moderate degree of antral gastritis and a moderate-sized hiatal hernia. Colonoscopy showed diverticulosis without evidence of any malignancy. Since her discharge, she has not received any anticoagulation. The patient had a stable hemoglobin of 8.4. The discharge hemoglobin was at 9.1. For now, the patient is having significant difficulties in right lower extremity swelling which has gotten worse since her discharge meds make her very uncomfortable. Electrolytes are stable. Troponins are negative. On today's evaluation of 05/30/2023, patient remains on room air oxygen without any respiratory difficulties. She has an IVC filter in place and she is complaining of significant swelling in the right lower extremity which has gotten worse since yesterday. A repeat ultrasound of the right lower extremity shows extensive DVT throughout the right lower extremity. There is clots in the femoral vein, popliteal vein and proximal Veins and the common femoral vein. This is making the patient quite uncomfortable as she is having pressure and tightness in the right lower extremity. Awaiting vascular surgery evaluation. Meanwhile, and hemoglobin today is at 8.5 which is stable. No evidence of any G I bleeding. She remains on Protonix. On today's evaluation of 05/31/2023, the patient's right lower extremity is wrapped, elevated, the patient was started on IV heparin. I did discussion yesterday with a vascular surgeon. We decided to proceed with anticoagulation once the patient closely for any GI bleeding. Fortunately, hemoglobin stable at 8.0. She has not demonstrated any bleeding since yesterday. She remains on room air oxygen. No shortness of breath. She has a white cell count of 3.8, hemoglobin stable at 8, normal platelets, sodium is at 135 and a potassium level of 4.2, BUN is at 10 with a creatinine of 0.6. PTT is at 40. Vascular surgeries on the case and the patient was evaluated by Dr. Leeanna Ortega. As mentioned, due to her recent GI bleed, she is on a candidate for catheter directed thrombolytic therapy she was treated conservatively at this point in time. The patient is seen today 06/01/2023 in follow-up on the regular medical floor. She is currently sitting up in a chair at the bedside. She is awake and alert in no acute distress. She still having some right lower extremity discomfort. She remains on a heparin drip. She is maintaining good O2 saturations in the 90s on room air. Blood culture revealing no growth. Urine culture reveals no growth. Count 12.2. Hemoglobin 7.6. Platelets 380. Sodium 139. Potassium 4.4. Bicarb 23. BUN 10. Creatinine 0.7. Glucose 117. She is continued on ceftriaxone, Mucinex. Objective - Vital Signs Vital signs: Vital Signs Temp 98.8 F 06/01/23 07:22 Pulse 87 06/01/23 07:22 Resp 20 06/01/23 09:35 BP 115/72 06/01/23 07:22 Pulse Ox 92 L 06/01/23 07:22 FiO2 Intake & Output 05/31/23 06/01/23 06/01/23 18:59 06:59 18:59 Intake Total 115.966 121.295 368 Balance 115.966 121.295 368 Intake: Intake, IV Titration 115.966 121.295 Amount Heparin Sod,Pork in 0.45% 115.966 121.295 NaCl 25,000 unit In 0.45 % NaCl 1 250ml.bag @ 12 UNITS/KG/HR 6.26 mls/hr IV .Q24H [facility] Rx#: [id number] Oral 368 Other: Voiding Method Toilet # Voids 3 1 - Exam GENERAL EXAM: Alert, pleasant 83-year-old female, sitting up in a chair, on room air, comfortable in no apparent distress. HEAD: Normocephalic. EYES: Normal reaction of pupils, equal size. NOSE: Clear with pink turbinates. THROAT: No erythema or exudates. NECK: No masses, no JVD. CHEST: No chest wall deformity. LUNGS: Equal air entry with faint crackles in the left base. CVS: S1 and S2 normal with no audible murmur, regular rhythm. ABDOMEN: No hepatosplenomegaly, normal bowel sounds, no guarding or rigidity. SPINE: No scoliosis or deformity SKIN: No rashes CENTRAL NERVOUS SYSTEM: No focal deficits, tone is normal in all 4 extremities. EXTREMITIES: There is edema to the right lower extremity. No clubbing, no cyanosis. Peripheral pulses are intact. - Labs CBC & Chem 7: 06/01/23 06:15 06/01/23 06:15 Labs: Abnormal Lab Results - Last 24 Hours (Table) 05/31/23 05/31/23 06/01/23 Range/Units 04:25 13:47 06:15 WBC (4.50-10.00) X 10*3/uL RBC (4.10-5.20) X 10*6/uL Hgb (12.0-15.0) g/dL Hct (37.2-46.3) % MCV (80.0-97.0) FL MCH (27.0-32.0) pg MCHC (32.0-37.0) g/dL RDW (11.5-14.5) % MPV (9.5-12.2) FL Immature Gran # (0.00-0.04) X 10*3/uL Neutrophils # (1.80-7.70) X 10*3/uL Monocytes # (0.20-1.00) X 10*3/uL Basophils # (0.00-0.10) X 10*3/uL PT 12.4 H (9.9-11.9) sec INR 1.16 H (0.93-1.11) sec APTT 46.6 H (22.0-30.0) sec Glucose (70-110) mg/dL Iron 13 L (50-170) UG/DL % Saturation 3.68 L (12.00-45.00) Total Bilirubin (0.3-1.2) mg/dL Total Protein (6.2-8.2) g/dL Albumin (3.8-4.9) g/dL Albumin/Globulin Ratio (1.60-3.17) Ratio 06/01/23 06/01/23 Range/Units 06:15 06:15 WBC 12.23 H (4.50-10.00) X 10*3/uL RBC 3.67 L (4.10-5.20) X 10*6/uL Hgb 7.6 L (12.0-15.0) g/dL Hct 26.4 L (37.2-46.3) % MCV 71.9 L (80.0-97.0) FL MCH 20.7 L (27.0-32.0) pg MCHC 28.8 L (32.0-37.0) g/dL RDW 25.1 H (11.5-14.5) % MPV 9.3 L (9.5-12.2) FL Immature Gran # 0.07 H (0.00-0.04) X 10*3/uL Neutrophils # 9.50 H (1.80-7.70) X 10*3/uL Monocytes # 1.33 H (0.20-1.00) X 10*3/uL Basophils # 0.11 H (0.00-0.10) X 10*3/uL PT (9.9-11.9) sec INR (0.93-1.11) sec APTT (22.0-30.0) sec Glucose 117 H (70-110) mg/dL Iron (50-170) UG/DL % Saturation (12.00-45.00) Total Bilirubin 0.2 L (0.3-1.2) mg/dL Total Protein 6.1 L (6.2-8.2) g/dL Albumin 3.3 L (3.8-4.9) g/dL Albumin/Globulin Ratio 1.18 L (1.60-3.17) Ratio Microbiology - Last 24 Hours (Table) 05/28/23 18:30 Blood Culture Gram Stain - Final Blood Blood Culture - Final Coagulase Negative Staph 05/28/23 18:45 Blood Culture - Preliminary Blood Assessment and Plan Assessment: Pulmonary embolism related to a right lower extremity DVT/popliteal and the patient was given an IVC filter due to contraindication to anticoagulation as the patient was found to have a gastric ulcer with a clean base measuring 1 cm on an EGD and the patient had significant blood loss anemia on an earlier hospitalization. The patient was discharged home on 05/24/2023 Right lower extremity DVT popliteal with progressive worsening and edema, with extensive clotting of the right lower extremity including, femoral, right femoral, popliteal and calf veins.. The patient has significant pressure edema in the right lower extremity. Restasis urges been involved. We decided to go with conservative measurements and the patient was started on IV heparin with close monitoring of the hemoglobin and monitoring for any signs of GI bleeding. Leg is elevated History of IVC filter placement Acute blood loss anemia secondary to GI bleed secondary to gastric ulcer 1 cm, hemoglobin is stable for now at 5, current hemoglobin is at 7.6 Gastric ulcer along with antral gastritis and moderate-sized hiatal hernia Chronic diverticulosis Small left-sided pleural effusion Plan: The patient was seen and evaluated Labs and medications reviewed Remains on a heparin drip currently May be considered for low-dose anticoagulation Currently stable and on room air We will continue to follow I have personally seen and examined the patient, performed the documentation and the assessment and plan as written. Number of minutes spent on the visit: 10.
[2023-06-01] MEDS: FERROUS SULFATE 325 MG TAB PO SCH (20:41)
[2023-06-01] MEDS: ACETAMINOPHEN TAB 325 MG TAB PO PRN (20:53)
[2023-06-02] MEDS: HEPARIN SOD,PORK IN 0.45% NACL 25,000 UNIT in 0.45% NACL 1 250ML.BAG IV SCH (06:46)
[2023-06-02] MEDS: PANTOPRAZOLE 40 MG TABLET PO SCH ×2 (07:27→20:34)
[2023-06-02] MEDS: FERROUS SULFATE 325 MG TAB PO SCH (08:39)
[2023-06-02] MEDS: guaiFENesin 600 MG TABLET.ER PO SCH ×2 (08:39→20:34)
[2023-06-02 09:16] LABS: HCT 27.2 % (37.2-46.3); HGB 7.8 g/dL (12.0-15.0); MCH 20.7 pg (27.0-32.0); MCHC 28.7 g/dL (32.0-37.0); MCV 72.1 FL (80.0-97.0); Mean Platelet Volume 9.1 FL (9.5-12.2); NRBC Per 100 WBC 0 X 10*3/uL (0.00-0.01); Platelet Count 403 X 10*3/uL (140-440); RBC 3.77 X 10*6/uL (4.10-5.20); RDW 25.4 % (11.5-14.5); WBC 10.64 X 10*3/uL (4.50-10.00)
--- NOTE | 2023-06-02 11:00 | P.PN ---
Subjective Progress Note Date: 06/02/23 Principal diagnosis: Right lower extremity DVT Patient is seen and examined today as a follow-up. She is sitting up in the recliner with her legs elevated. She has an Jose wrap up to her knee. States swelling has improved. Pain has improved. No complaints of shortness of breath or chest pain at this time. She has been on a heparin drip. Hemoglobin stable at 7.8 today. She reports no bowel movement since admission. There is no signs of GI bleed. I abdomen soft, nontender. Objective - Vital Signs Vital signs: Vital Signs Temp 98.1 F 06/02/23 07:52 Pulse 80 06/02/23 07:52 Resp 17 06/02/23 07:52 BP 115/72 06/02/23 07:52 Pulse Ox 94 L 06/02/23 07:52 FiO2 Intake & Output 06/01/23 06/02/23 06/02/23 18:59 06:59 18:59 Intake Total 368 249.545 200 Balance 368 249.545 200 Intake: Intake, IV Titration 249.545 Amount Heparin Sod,Pork in 0.45% 249.545 NaCl 25,000 unit In 0.45 % NaCl 1 250ml.bag @ 12 UNITS/KG/HR 6.26 mls/hr IV .Q24H [facility] Rx#: [id number] Oral 368 200 Other: Voiding Method Toilet # Voids 2 2 1 - Exam General appearance: The patient is alert, oriented, appears in no acute distress. HET: Head is normocephalic and atraumatic. Neck: Supple. Heart: Regular. Lungs: Equal expansion, normal respiratory effort. Abdomen: Soft, nontender, nondistended. Extremities: Normal skin color and turgor. Right lower extremity swelling by d own to ankle. Jose wrap from knee down, palpable DP pulse. Neurological: No focal deficits. Strength and sensation are grossly intact. - Labs CBC & Chem 7: 06/02/23 05:28 06/01/23 06:15 Labs: Abnormal Lab Results - Last 24 Hours (Table) 06/01/23 06/02/23 06/02/23 Range/Units 06:15 05:28 07:35 WBC 10.64 H (4.50-10.00) X 10*3/uL RBC 3.77 L (4.10-5.20) X 10*6/uL Hgb 7.8 L (12.0-15.0) g/dL Hct 27.2 L (37.2-46.3) % MCV 72.1 L (80.0-97.0) FL MCH 20.7 L (27.0-32.0) pg MCHC 28.7 L (32.0-37.0) g/dL RDW 25.4 H (11.5-14.5) % MPV 9.1 L (9.5-12.2) FL APTT 42.4 H (22.0-30.0) sec Glucose 117 H (70-110) mg/dL Total Bilirubin 0.2 L (0.3-1.2) mg/dL Total Protein 6.1 L (6.2-8.2) g/dL Albumin 3.3 L (3.8-4.9) g/dL Albumin/Globulin Ratio 1.18 L (1.60-3.17) Ratio Microbiology - Last 24 Hours (Table) 05/28/23 18:30 Blood Culture Gram Stain - Final Blood Blood Culture - Final Coagulase Negative Staph 05/28/23 18:45 Blood Culture - Preliminary Blood Assessment and Plan Assessment: 1. Right lower extremity deep vein thrombosis with progressive worsening edema 2. Pulmonary embolism 3. Recent GI bleed, clean-based gastric ulcer requiring IVC filter 4. History of acute blood loss anemia, currently stable Plan: 1. Discontinue heparin drip and Transition to oral anticoagulation will start Ahlquist 5 mg by mouth twice a day 2. Elevate right lower extremity 3. Apply thigh-high YONY hose 4. Prescription for YONY hose for home 20-30 mmHg given to patient 5. No vascular surgical intervention planned. Patient is cleared from vascular surgery for discharge and follow-up in 1-2 weeks. Thank you for this consultation. The impression and plan of care has been dictated as directed. I performed a history and examination of this patient, discussed the same with the dictator. I agree with the dictator's note ,documented as a scribe. Any additional findings or plans will be noted.
[2023-06-02 11:59] LABS: BUN/Creat Ratio 12.86 Ratio (12.00-20.00); Glucose 108 mg/dL (70-110)
[2023-06-02 12:00] LABS: ALT 16 U/L (8-44); AST 21 U/L (13-35); Albumin 3.3 g/dL (3.8-4.9); Albumin/Globulin Ratio 1.22 Ratio (1.60-3.17); Alkaline Phosphatase 102 U/L (41-126); Calcium 9.9 mg/dL (8.7-10.3); Carbon Dioxide 22.9 mmol/L (21.6-31.8); Chloride 105 mmol/L (96-109); Globulin 2.7 g/dL (1.6-3.3); Potassium 4.5 mmol/L (3.5-5.5); Sodium 140 mmol/L (135-145); Total Bilirubin 0.2 mg/dL (0.3-1.2)
[2023-06-02] MEDS: APIXABAN 5 MG TAB PO SCH ×2 (12:44→20:34)
--- NOTE | 2023-06-02 12:52 | P.PN ---
Subjective Progress Note Date: 06/02/23 Patient is being seen in consultation for recent pulmonary embolism. The patient was discharged home on 05/24/2023 to be readmitted with worsening right lower extremity edema and some dizziness. Nontender worsening shortness of breath. The patient remains on room air oxygen. The patient had a chest x-ray in the emergency department that showed improvement in the left lower lobe small pleural effusion. Otherwise, no hemoptysis or pleurisy. Noted the patient is not receiving any anticoagulation due to a recent GI bleed due to a gastric ulcer. The patient was given IVC filter accordingly. In summary, this patient is 83 and she was recently hospitalized for exertional shortness of breath. Den ies any fevers, chills, cough, chest pain, hemoptysis. Her hemoglobin level was found to be low on outpatient labs, and she was directed to the emergency room. Hemoglobin level at our facility was 5.9 g/dL. She was transfused 2 units PRBCs, and repeat hemoglobin level is up to 8.5 g/dL. She denies any GI bleeding. Denies any melena. Denies any nausea, vomiting, hematemesis. Denies any abdomi nal pain. Does not take any anticoagulants. Denies frequent NSAID use. Occasionally takes Aleve. Unsure of when her last colonoscopy was. Denies any recent trauma or surgery. Denies any prolonged travel. Denies any familial or personal history of blood clots. Denies history of malignancy. D-dimer was elevated at 3.07. A follow-up chest CTA was positive for pulmonary emboli on the left, moderate burden scattered throughout the lobar, segmental, and subsegmental branches of the lower lobe. No CT evidence of right heart strain. Also found to have a right lower extremity popliteal DVT. IVC filter was placed. The patient underwent further workup for GI bleed and the patient was found to have a clear base 1 cm gastric ulcer in the proximal body of stomach along with a moderate degree of antral gastritis and a moderate-sized hiatal hernia. Colonoscopy showed diverticulosis without evidence of any malignancy. Since her discharge, she has not received any anticoagulation. The patient had a stable hemoglobin of 8.4. The discharge hemoglobin was at 9.1. For now, the patient is having significant difficulties in right lower extremity swelling which has gotten worse since her discharge meds make her very uncomfortable. Electrolytes are stable. Troponins are negative. On today's evaluation of 05/30/2023, patient remains on room air oxygen without any respiratory difficulties. She has an IVC filter in place and she is complaining of significant swelling in the right lower extremity which has gotten worse since yesterday. A repeat ultrasound of the right lower extremity shows extensive DVT throughout the right lower extremity. There is clots in the femoral vein, popliteal vein and proximal Veins and the common femoral vein. This is making the patient quite uncomfortable as she is having pressure and tightness in the right lower extremity. Awaiting vascular surgery evaluation. Meanwhile, and hemoglobin today is at 8.5 which is stable. No evidence of any G I bleeding. She remains on Protonix. On today's evaluation of 05/31/2023, the patient's right lower extremity is wrapped, elevated, the patient was started on IV heparin. I did discussion yesterday with a vascular surgeon. We decided to proceed with anticoagulation once the patient closely for any GI bleeding. Fortunately, hemoglobin stable at 8.0. She has not demonstrated any bleeding since yesterday. She remains on room air oxygen. No shortness of breath. She has a white cell count of 3.8, hemoglobin stable at 8, normal platelets, sodium is at 135 and a potassium level of 4.2, BUN is at 10 with a creatinine of 0.6. PTT is at 40. Vascular surgeries on the case and the patient was evaluated by Dr. Leeanna Ortega. As mentioned, due to her recent GI bleed, she is on a candidate for catheter directed thrombolytic therapy she was treated conservatively at this point in time. The patient is seen today 06/01/2023 in follow-up on the regular medical floor. She is currently sitting up in a chair at the bedside. She is awake and alert in no acute distress. She still having some right lower extremity discomfort. She remains on a heparin drip. She is maintaining good O2 saturations in the 90s on room air. Blood culture revealing no growth. Urine culture reveals no growth. Count 12.2. Hemoglobin 7.6. Platelets 380. Sodium 139. Potassium 4.4. Bicarb 23. BUN 10. Creatinine 0.7. Glucose 117. She is continued on ceftriaxone, Mucinex. The patient is seen today 06/02/2019 for follow-up on the regular medical floor. She is awake and alert in no acute distress. Sitting up at the bedside. Maintaining good O2 saturation in the 90s on room air. She denies any worsening shortness of breath, cough or congestion. No hemoptysis. Still with some right lower extremity discomfort. She has been transitioned to Eliquis today per vascular surgery. Blood cultures reveal no growth. Urine culture revealed no growth. White count 10.6. Hemoglobin 7.8. Platelets 43. Sodium 140. Potassium 4.5. Bicarb 23. BUN 9. Creatinine 0.7. Glucose 108. She remains on ceftriaxone. Objective - Vital Signs Vital signs: Vital Signs Temp 98.1 F 06/02/23 07:52 Pulse 80 06/02/23 07:52 Resp 17 06/02/23 07:52 BP 115/72 06/02/23 07:52 Pulse Ox 94 L 06/02/23 07:52 FiO2 Intake & Output 06/01/23 06/02/23 06/02/23 18:59 06:59 18:59 Intake Total 368 249.545 200 Balance 368 249.545 200 Intake: Intake, IV Titration 249.545 Amount Heparin Sod,Pork in 0.45% 249.545 NaCl 25,000 unit In 0.45 % NaCl 1 250ml.bag @ 12 UNITS/KG/HR 6.26 mls/hr IV .Q24H [facility] Rx#: [id number] Oral 368 200 Other: Voiding Method Toilet # Voids 2 2 1 - Exam GENERAL EXAM: Alert, 83-year-old female, sitting up in a chair, on room air, in no apparent distress. HEAD: Normocephalic. EYES: Normal reaction of pupils, equal size. NOSE: Clear with pink turbinates. THROAT: No erythema or exudates. NECK: No masses, no JVD. CHEST: No chest wall deformity. LUNGS: Equal air entry with faint crackles in the left base. CVS: S1 and S2 normal with no audible murmur, regular rhythm. ABDOMEN: No hepatosplenomegaly, normal bowel sounds, no guarding or rigidity. SPINE: No scoliosis or deformity SKIN: No rashes CENTRAL NERVOUS SYSTEM: No focal deficits, tone is normal in all 4 extremities. EXTREMITIES: There is edema to the right lower extremity. No clubbing, no cyanosis. Peripheral pulses are intact. - Labs CBC & Chem 7: 06/02/23 05:28 06/02/23 05:28 Labs: Abnormal Lab Results - Last 24 Hours (Table) 06/02/23 06/02/23 06/02/23 Range/Units 05:28 05:28 07:35 WBC 10.64 H (4.50-10.00) X 10*3/uL RBC 3.77 L (4.10-5.20) X 10*6/uL Hgb 7.8 L (12.0-15.0) g/dL Hct 27.2 L (37.2-46.3) % MCV 72.1 L (80.0-97.0) FL MCH 20.7 L (27.0-32.0) pg MCHC 28.7 L (32.0-37.0) g/dL RDW 25.4 H (11.5-14.5) % MPV 9.1 L (9.5-12.2) FL APTT 42.4 H (22.0-30.0) sec Anion Gap 12.10 H (4.00-12.00) mmol/L Total Bilirubin 0.2 L (0.3-1.2) mg/dL Total Protein 6.0 L (6.2-8.2) g/dL Albumin 3.3 L (3.8-4.9) g/dL Albumin/Globulin Ratio 1.22 L (1.60-3.17) Ratio Microbiology - Last 24 Hours (Table) 05/28/23 18:30 Blood Culture Gram Stain - Final Blood Blood Culture - Final Coagulase Negative Staph Assessment and Plan Assessment: Pulmonary embolism related to a right lower extremity DVT/popliteal and the patient was given an IVC filter due to contraindication to anticoagulation as the patient was found to have a gastric ulcer with a clean base measuring 1 cm on an EGD and the patient had significant blood loss anemia on an earlier hospitalization. The patient was discharged home on 05/24/2023 Right lower extremity DVT popliteal with progressive worsening and edema, with extensive clotting of the right lower extremity including, femoral, right femoral, popliteal and calf veins. The patient has significant pressure edema in the right lower extremity. Restasis urges been involved. The patient was started on IV heparin with close monitoring of the hemoglobin and monitoring for any signs of GI bleeding. Leg is elevated. Transitioned to Eliquis today History of IVC filter placement on 05/21/2023 History of GI bleed secondary to gastric ulcer 1 cm, hemoglobin is stable for now at 7.8 History of gastric ulcer along with antral gastritis and moderate-sized hiatal hernia Chronic diverticulosis Small left-sided pleural effusion Plan: The patient was seen and evaluated Labs and medications reviewed Transitioned to Eliquis per vascular surgery Currently stable and on room air Cleared for discharge from the pulmonary standpoint I have personally seen and examined the patient, performed the documentation and the assessment and plan as written. Number of minutes spent on the visit: 10.
--- NOTE | 2023-06-02 20:10 | P.PN ---
Subjective Progress Note Date: 06/02/23 Principal diagnosis: Weakness and debility with history of GI bleed. The patient is here essentially for weakness and debility. She was recently diagnosed with DVT and PE. She looks much better and we have encouraged more activity and and ambulation. No fever or chills. No voiding difficulties. No falls no shortness of breath stated. No chest pain Objective - Vital Signs Vital signs: Vital Signs Temp 97.9 F 06/02/23 14:00 Pulse 92 06/02/23 14:00 Resp 17 06/02/23 14:00 BP 129/80 06/02/23 14:00 Pulse Ox 99 06/02/23 14:00 FiO2 Intake & Output 06/02/23 06/02/23 06/03/23 06:59 18:59 06:59 Intake Total 249.545 950 Balance 249.545 950 Intake: Intake, IV Titration 249.545 50 Amount Heparin Sod,Pork in 0.45% 249.545 NaCl 25,000 unit In 0.45 % NaCl 1 250ml.bag @ 12 UNITS/KG/HR 6.26 mls/hr IV .Q24H [facility] Rx#: [id number] cefTRIAXone 2 gm In 50 Sodium Chloride 0.9% 50 ml @ 100 mls/hr IVPB Q24HR [facility] Rx#:[id number] Oral 900 Other: # Voids 2 2 # Bowel Movements 1 - Constitutional General appearance: Present: average body habitus, cooperative. Absent: disheveled - Neck Neck: Absent: lymphadenopathy - Respiratory Respiratory: bilateral: diminished - Cardiovascular Rhythm: regular Heart sounds: normal: S1, S2 Abnormal Heart Sounds: Absent: S3 Gallop - Gastrointestinal General gastrointestinal: Present: soft. Absent: tenderness - Labs CBC & Chem 7: 06/02/23 05:28 06/02/23 05:28 Labs: Abnormal Lab Results - Last 24 Hours (Table) 06/02/23 06/02/23 06/02/23 Range/Units 05:28 05:28 07:35 WBC 10.64 H (4.50-10.00) X 10*3/uL RBC 3.77 L (4.10-5.20) X 10*6/uL Hgb 7.8 L (12.0-15.0) g/dL Hct 27.2 L (37.2-46.3) % MCV 72.1 L (80.0-97.0) FL MCH 20.7 L (27.0-32.0) pg MCHC 28.7 L (32.0-37.0) g/dL RDW 25.4 H (11.5-14.5) % MPV 9.1 L (9.5-12.2) FL APTT 42.4 H (22.0-30.0) sec Anion Gap 12.10 H (4.00-12.00) mmol/L Total Bilirubin 0.2 L (0.3-1.2) mg/dL Total Protein 6.0 L (6.2-8.2) g/dL Albumin 3.3 L (3.8-4.9) g/dL Albumin/Globulin Ratio 1.22 L (1.60-3.17) Ratio Assessment and Plan (1) DVT (deep venous thrombosis) Current Visit: Yes Status: Acute Code(s): I82.409 - ACUTE EMBOLISM AND THOMBOS UNSP DEEP VN UNSP LOWER EXTREMITY SNOMED Code(s): 045569122 (2) Weakness Current Visit: Yes Status: Acute Code(s): R53.1 - WEAKNESS SNOMED Code(s): 73801262 (3) Anemia Current Visit: No Status: Acute Code(s): D64.9 - ANEMIA, UNSPECIFIED SNOMED Code(s): 362043845 (4) Debility Current Visit: No Status: Acute Code(s): R53.81 - OTHER MALAISE SNOMED Code(s): 07920225 (5) GI bleed Current Visit: No Status: Acute Code(s): K92.2 - GASTROINTESTINAL HEMORRHAGE, UNSPECIFIED SNOMED Code(s): 29893368 (6) Pulmonary embolism on left Current Visit: No Status: Acute Code(s): I26.99 - OTHER PULMONARY EMBOLISM WITHOUT ACUTE COR PULMONALE SNOMED Code(s): 85514999 Plan: Increase ambulation today. Restart Eliquis upon discharge if appropriate. Check CBC and CP in a.m. Anticipate discharge in the next 24-48 hours. PT/OT. Time with Patient: Greater than 30
[2023-06-03 02:54] VITALS: RESP 16
[2023-06-03 07:25] VITALS: BP 103/70; PULSE 93; TEMP 98.2
--- NOTE | 2023-06-03 08:25 | P.DS ---
Providers Date of admission: 05/28/23 18:45 Attending physician: Kiko Flores Consults: 05/29/23 10:31 Consult Physician Routine Consulting Provider: Leoncio Peoples Consult Reason/Comments: Shortness of breath, pleural effusions, recent diagnosis of PE Do you want consulting provider notified?: Yes 05/29/23 11:20 Consult Physician Routine Consulting Provider: Aidan Wisdom Consult Reason/Comments: DVT right leg Do you want consulting provider notified?: Yes Primary care physician: Kiko Flores - Discharge Diagnosis(es) (1) DVT (deep venous thrombosis) Current Visit: Yes Status: Acute (2) Weakness Current Visit: Yes Status: Acute (3) Anemia Current Visit: No Status: Acute (4) Pulmonary embolism on left Current Visit: No Status: Acute Hospital Course: This is an 83-year-old female who was recently admitted to the hospital diagnosed with a PE of gastric ulcer who presented to the emergency room for generalized weakness. She did have an IVC filter placed by vascular surgery and recent admission. On this admission patient was positive for DVT of the right lower extremity, she was started on heparin, and surgeon is recommending Eliquis for discharge. Patient is seen this morning laying a better. She reports she is feeling much better and is up moving around the room throughout the day. Sh e'll be sent home with a new prescription for Eliquis. She'll follow-up in our office in 5-7 days, will need to repeat CBC at that point. Will also put in referral to home health. Patient seen and evaluated by nurse practitioner, physician in agreement with plan Patient Condition at Discharge: Fair Plan - Discharge Summary Discharge Rx Participant: No New Discharge Prescriptions: New Apixaban [Eliquis] 5 mg PO BID #60 tab Ferric Citrate [Auryxia] 210 mg PO DAILY 30 Days #30 tablet Continue Pantoprazole Sodium [Protonix] 40 mg PO BID 30 Days #60 tab guaiFENesin [Mucinex] 600 mg PO Q12HR 7 Days #14 tab Discharge Medication List Pantoprazole Sodium [Protonix] 40 mg PO BID 30 Days #60 tab 05/24/23 [Rx] guaiFENesin [Mucinex] 600 mg PO Q12HR 7 Days #14 tab 05/24/23 [Rx] Apixaban [Eliquis] 5 mg PO BID #60 tab 06/02/23 [Rx] Ferric Citrate [Auryxia] 210 mg PO DAILY 30 Days #30 tablet 06/03/23 [Rx] Follow up Appointment(s)/Referral(s): Ayanna Ortega DO [STAFF PHYSICIAN] - 1 Week Kiko Flores MD [Primary Care Provider] - 1 Week (Repeat CBC at this visit) Patient Instructions/Handouts: Apixaban (By mouth), Deep Vein Thrombosis (DC) Discharge Disposition: HOME WITH HOME HEALTH SERVICES
[2023-06-03] MEDS: APIXABAN 5 MG TAB PO SCH (09:39)
[2023-06-03] MEDS: guaiFENesin 600 MG TABLET.ER PO SCH (09:39)
[2023-06-03] MEDS: FERROUS SULFATE 325 MG TAB PO SCH (09:39)
[2023-06-03] MEDS: PANTOPRAZOLE 40 MG TABLET PO SCH (09:39)
--- NOTE | 2023-06-03 16:15 | P.PN ---
Subjective Progress Note Date: 06/03/23 Principal diagnosis: Acute pulmonary embolism and DVT Patient is being seen in consultation for recent pulmonary embolism. The patient was discharged home on 05/24/2023 to be readmitted with worsening right lower extremity edema and some dizziness. Nontender worsening shortness of breath. The patient remains on room air oxygen. The patient had a chest x-ray in the emergency department that showed improvement in the left lower lobe small pleural effusion. Otherwise, no hemoptysis or pleurisy. Noted the patient is not receiving any anticoagulation due to a recent GI bleed due to a gastric ulcer. The patient was given IVC filter accordingly. In summary, this patient is 83 and she was recently hospitalized for exertional shortness of breath. Denies any fevers, chills, cough, chest pain, hemoptysis. Her hemoglobin level was found to be low on outpatient labs, and she was directed to the emergency room. Hemoglobin level at our facility was 5.9 g/dL. She was transfused 2 units PRBCs, and repeat hemoglobin level is up to 8.5 g/dL. She denies any GI bleeding. Denies any melena. Denies any nausea, vomiting, hematemesis. Denies any abdominal pain. Does not take any anticoagulants. Denies frequent NSAID use. Occasionally takes Aleve. Unsure of when her last colonoscopy was. Denies any recent trauma or surgery. Denies any prolonged travel. Denies any familial or personal history of blood clots. Denies history of malignancy. D-dimer was elevated at 3.07. A follow-up chest CTA was positive for pulmonary emboli on the left, moderate burden scattered throughout the lobar, segmental, and subsegmental branches of the lower lobe. No CT evidence of right heart strain. Also found to have a right lower extremity popliteal DVT. IVC filter was pl aced. The patient underwent further workup for GI bleed and the patient was found to have a clear base 1 cm gastric ulcer in the proximal body of stomach along with a moderate degree of antral gastritis and a moderate-sized hiatal hernia. Colonoscopy showed diverticulosis without evidence of any malignancy. Since her discharge, she has not received any anticoagulation. The patient had a stable hemoglobin of 8.4. The discharge hemoglobin was at 9.1. For now, the patient is having significant difficulties in right lower extremity swelling which has gotten worse since her discharge meds make her very uncomfortable. Electrolytes are stable. Troponins are negative. On today's evaluation of 05/30/2023, patient remains on room air oxygen without any respiratory difficulties. She has an IVC filter in place and she is complaining of significant swelling in the right lower extremity which has gotten worse since yesterday. A repeat ultrasound of the right lower extremity shows extensive DVT throughout the right lower extremity. There is clots in the femoral vein, popliteal vein and proximal Veins and the common femoral vein. This is making the patient quite uncomfortable as she is having pressure and tightness in the right lower extremity. Awaiting vascular surgery evaluation. Meanwhile, and hemoglobin today is at 8.5 which is stable. No evidence of any GI bleeding. She remains on Protonix. On today's evaluation of 05/31/2023, the patient's right lower extremity is wra pped, elevated, the patient was started on IV heparin. I did discussion yesterday with a vascular surgeon. We decided to proceed with anticoagulation once the patient closely for any GI bleeding. Fortunately, hemoglobin stable at 8.0. She has not demonstrated any bleeding since yesterday. She remains on room air oxygen. No shortness of breath. She has a white cell count of 3.8, hemoglobin stable at 8, normal platelets, sodium is at 135 and a potassium level of 4.2, BUN is at 10 with a creatinine of 0.6. PTT is at 40. Vascular surgeries on the case and the patient was evaluated by Dr. Leeanna Ortega. As mentioned, due to her recent GI bleed, she is on a candidate for catheter direc kortney thrombolytic therapy she was treated conservatively at this point in time. The patient is seen today 06/01/2023 in follow-up on the regular medical floor. She is currently sitting up in a chair at the bedside. She is awake and alert in no acute distress. She still having some right lower extremity discomfort. She remains on a heparin drip. She is maintaining good O2 saturations in the 90 s on room air. Blood culture revealing no growth. Urine culture reveals no growth. Count 12.2. Hemoglobin 7.6. Platelets 380. Sodium 139. Potassium 4.4. Bicarb 23. BUN 10. Creatinine 0.7. Glucose 117. She is continued on ceftriaxone, Mucinex. The patient is seen today 06/02/2019 for follow-up on the regular medical floor. She is awake and alert in no acute distress. Sitting up at the bedside. Maintaining good O2 saturation in the 90s on room air. She denies any worsening shortness of breath, cough or congestion. No hemoptysis. Still with some right lower extremity discomfort. She has been transitioned to Eliquis today per vascular surgery. Blood cultures reveal no growth. Urine culture revealed no growth. White count 10.6. Hemoglobin 7.8. Platelets 43. Sodium 140. Potassium 4.5. Bicarb 23. BUN 9. Creatinine 0.7. Glucose 108. She remains on ceftriaxone. Reevaluated today on 06/03/23, patient is doing well, relatively asymptomatic, being considered for discharge home on eliquis. No cough no wheezing no shortness of breath continues to have significant swelling in her right lower extremity Objective - Vital Signs Vital signs: Vital Signs Temp 98.2 F 06/03/23 06:41 Pulse 93 06/03/23 06:41 Resp 16 06/03/23 06:41 BP 103/70 06/03/23 06:41 Pulse Ox 94 L 06/03/23 06:41 FiO2 Intake & Output 06/02/23 06/03/23 06/03/23 18:59 06:59 18:59 Intake Total 950 50 Balance 950 50 Intake: Intake, IV Titration 50 50 Amount cefTRIAXone 2 gm In 50 50 Sodium Chloride 0.9% 50 ml @ 100 mls/hr IVPB Q24HR [facility] Rx#:[id number] Oral 900 Other: # Voids 2 2 1 # Bowel Movements 1 1 - Exam GENERAL EXAM: Alert, 83-year-old female, sitting up in a chair, on room air, in no apparent distress. On room air HEAD: Normocephalic. EYES: Normal reaction of pupils, equal size. NOSE: Clear with pink turbinates. THROAT: No erythema or exudates. NECK: No masses, no JVD. CHEST: No chest wall deformity. LUNGS: Equal air entry with faint crackles in the left base. CVS: S1 and S2 normal with no audible murmur, regular rhythm. ABDOMEN: No hepatosplenomegaly, normal bowel sounds, no guarding or rigidity. SKIN: No rashes CENTRAL NERVOUS SYSTEM: No focal deficits, tone is normal in all 4 extremities. EXTREMITIES: There is edema to the right lower extremity. No clubbing, no cyanosis. Peripheral pulses are intact. - Labs CBC & Chem 7: 06/02/23 05:28 06/02/23 05:28 Labs: Microbiology - Last 24 Hours (Table) 05/28/23 18:45 Blood Culture - Final Blood Assessment and Plan Assessment: Impression: Pulmonary embolism related to a right lower extremity DVT/popliteal and the patient was given an IVC filter due to contraindication to anticoagulation as the patient was found to have a gastric ulcer with a clean base measuring 1 cm on an EGD and the patient had significant blood loss anemia on an earlier hospitalization. The patient was discharged home on 05/24/2023 Right lower extremity DVT popliteal with progressive worsening and edema, with extensive clotting of the right lower extremity including, History of IVC filter placement on 05/21/2023 History of GI bleed secondary to gastric ulcer 1 cm, hemoglobin is stable for now at 7.8 Small left-sided pleural effusion Recommendation: Agree with discharge planning Continue eliquis as recommended by vascular surgery Patient remains on room air Cleared for discharge Follow-up on outpatient basis Time with Patient: Less than 30
== END 2023-06-03 13:38 | disposition home health service (06) | DRG 299 ==
LOC: EC 14:54 → 4SSUR 18:45
PROVIDERS: ADMIT Family Medicine; ATTEND Family Medicine
PROC: 05HY33Z Insertion of Infusion Device into Upper Vein, Percutaneous Approach (ICD-10-PCS; principal; 2023-06-01 23:00)
DX: I82.431 Acute embolism and thrombosis of right popliteal vein (principal); I26.99 Other pulmonary embolism without acute cor pulmonale; K25.4 Chronic or unspecified gastric ulcer with hemorrhage; D62 Acute posthemorrhagic anemia; J90 Pleural effusion, not elsewhere classified; N39.0 Urinary tract infection, site not specified; K29.70 Gastritis, unspecified, without bleeding; E86.0 Dehydration; K44.9 Diaphragmatic hernia without obstruction or gangrene; K57.90 Diverticulosis of intestine, part unspecified, without perforation or abscess without bleeding; Z79.01 Long term (current) use of anticoagulants; Z79.899 Other long term (current) drug therapy; Z95.828 Presence of other vascular implants and grafts; Z11.52 Encounter for screening for COVID-19; R53.81 Other malaise
CPT/HCPCS: 36415; 71045; 74177; 80053; 81001; 81003; 83540; 83550; 83605; 83735; 83880; 84100; 84145; 84484; 85025; 85027; 85610; 85730; 86850; 86900; 86901; 87040; 87086; 87636; 93005; 94760; 96361; 96365; 99285

== ENCOUNTER 2023-09-01 08:47 | Day surgery (SDC) | payer MEDICARE ==
[2023-09-01] MEDS: LACTATED RINGERS 1,000 ML IV SCH (09:17)
[2023-09-01 09:56] VITALS: TEMP 97
[2023-09-01] MEDS ORDERED: PROPOFOL 10 MG/ML 20 ML VIAL IV ONE (10:29)
[2023-09-01] MEDS ORDERED: LIDOCAINE 1% INJ 10MG/ML (20 ML MDV) ONE (10:29)
--- NOTE | 2023-09-01 10:37 | P.PCN ---
Date of Procedure: 09/01/23 Procedure(s) Performed: BRIEF HISTORY: Patient is a [83-year-old, pleasant, white female scheduled for an upper endoscopy as a part of evaluation of prior history of gastric ulcer diagnosed in April 2023 when she presented with severe symptomatic anemia and hemoglobin of 5.8 g/dL. He did have an upper endoscopy that revealed a 1 cm gastric antral ulcer and a normal colonoscopy. History of A. fib and currently on eliquis he has been on hold for 2 days' PROCEDURE PERFORMED: Esophagogastroduodenoscopy. PREOPERATIVE DIAGNOSIS: follow-up gastric antral ulcer. IV sedation per anesthesia. PROCEDURE: After informed consent was obtained, the patient was brought into the endoscopy unit. IV sedation was administered by Anesthesia under continuous monitoring. Initially the Olympus GIF-140 video endoscope was inserted into the mouth. Esophagus intubated without any difficulty. It was gradually advanced into the stomach and duodenum and carefully examined. The bulb and the second part of the duodenum appeared normal. The scope at this time was withdrawn to the stomach, adequately insufflated with air, and upon careful examination, mucosa of the antrum,appeared normal with completely healed antral ulcer. Mucosa of the body, cardia and the fundus appeared normal. The scope was then withdrawn into the esophagus.moderate to large size hiatal hernia noted. The abdomen impression was located at 40 cm to the incisors and the GE junction was located at32cm from the incisors. The esophagus appeared normal. There were no erosions or ulcerations seen and the patient tolerated the procedure well. IMPRESSION: 1. Large hiatal hernia with Arpan erosions.. 2. Completely healed gastric antral ulcer. RECOMMENDATIONS: The findings of this examination were discussed with the patient as well as a family.she was advised to stop Protonix at this time. Continue with iron supplements. Monitor CBC periodically. Resume Eliquis today.
[2023-09-01 11:16] VITALS: BP 163/84; RESP 16
[2023-09-01 11:17] VITALS: PULSE 67
== END 2023-09-01 11:23 | disposition home or self-care (01) ==
LOC: ORWHC2ENDO 08:47
PROVIDERS: ATTEND Internal Medicine Gastroenterology
DX: K44.9 Diaphragmatic hernia without obstruction or gangrene (principal); Z87.11 Personal history of peptic ulcer disease; I48.91 Unspecified atrial fibrillation; Z79.01 Long term (current) use of anticoagulants; Z86.711 Personal history of pulmonary embolism; Z79.899 Other long term (current) drug therapy; Z88.8 Allergy status to other drugs, medicaments and biological substances
CPT/HCPCS: 43235; J2001; J2704

== ENCOUNTER 2023-11-02 15:26 | Emergency (ER) | payer MEDICARE ==
--- NOTE | 2023-11-02 16:08 | ED ---
Extremity Problem HPI - General Source: patient, RN notes reviewed Mode of arrival: ambulatory Limitations: no limitations <Isa Sykes - Last Filed: 11/02/23 16:07> <Oma Brewer - Last Filed: 11/03/23 00:41> - General Chief complaint: Extremity Problem,Nontraumatic Stated complaint: Ultrasound Time Seen by Provider: 11/02/23 15:41 - History of Present Illness Initial comments: Quick Note-this is an 83-year-old female presents emergency department chief complaint of right lower extremity swelling since april. Patient states that she was hospitalized for a month in April 2023 due to a severe blood clot. States that she has been on Eliquis since this time. She is currently denying shortness of breath, dizziness, lightheadedness, recent travel. (Isa Sykes) 83 year old female presents to the emergency department for evaluation of right lower extremity swelling. Patient was advised by her physical therapist to come in for US of her leg. She states that this has been present for around 6 months. She states that she had a DVT and PE in April and an IVC filter was placed. She reports that her whole leg was swollen at that time. She reports that the swelling in her thigh has improved but reports continued swelling in her leg below the knee. She denies redness, warmth,, fevers, chills, shortness of breath, chest pain. She is on eliquis which she is taking as prescribed. (Oma Brewer) - Related Data Home Medications Medication Instructions Recorded Confirmed Cholecalciferol [Vitamin D3 (25 1 tab PO DAILY 08/31/23 08/31/23 Mcg = 1000 Iu)] Ferrous Sulfate [Feosol] 325 mg PO DAILY 08/31/23 08/31/23 Magnesium Citrate 2 tab PO DAILY 08/31/23 08/31/23 Pantoprazole Sodium [Protonix] 40 mg PO DAILY 08/31/23 08/31/23 Vit B Comp No.3/Folic/C/Biotin 1 tab PO DAILY 08/31/23 08/31/23 [Isaura-Alexi Rx Tablet] Previous Rx's Medication Instructions Recorded Apixaban [Eliquis] 5 mg PO BID #60 tab 06/02/23 Allergies Allergy/AdvReac Type Severity Reaction Status Date / Time pseudoephedrine AdvReac Unknown Verified 11/02/23 15:31 [From Sudafed] Review of Systems ROS Other: All systems not noted in ROS Statement are negative. <Isa Sykes - Last Filed: 11/02/23 16:07> ROS Other: All systems not noted in ROS Statement are negative. <Oma Brewer - Last Filed: 11/03/23 00:41> ROS Statement: Those systems with pertinent positive or pertinent negative responses have been documented in the HPI. Past Medical History Past Medical History: GI Bleed, Pulmonary Embolus (PE) Additional Past Medical History / Comment(s): Blood clot in right leg, and a clot in the lung as well. History of Any Multi-Drug Resistant Organisms: None Reported Past Surgical History: No Surgical Hx Reported Additional Past Surgical History / Comment(s): beryl to lt arm removed, IVC filter Past Anesthesia/Blood Transfusion Reactions: No Reported Reaction Past Psychological History: No Psychological Hx Reported Smoking Status: Never smoker - Past Family History Mother Family Medical History: Rheumatoid Arthritis (RA) Father Family Medical History: COPD <Isa Sykes - Last Filed: 11/02/23 16:07> General Exam Limitations: no limitations <Isa Sykes - Last Filed: 11/02/23 16:07> Limitations: no limitations General appearance: alert, in no apparent distress Head exam: Present: atraumatic, normocephalic, normal inspection Eye exam: Present: normal appearance, PERRL, EOMI. Absent: scleral icterus, conjunctival injection, periorbital swelling Respiratory exam: Present: normal lung sounds bilaterally. Absent: respiratory distress, wheezes, rales, rhonchi, stridor Cardiovascular Exam: Present: regular rate, normal rhythm, normal heart sounds. Absent: systolic murmur, diastolic murmur, rubs, gallop, clicks Extremities exam: Present: full ROM, normal capillary refill, other (2+ pitting edema to the right lower extremity below the knee). Absent: tenderness, pedal edema, joint swelling, calf tenderness Neurological exam: Present: alert, oriented X3 Psychiatric exam: Present: normal affect, normal mood Skin exam: Present: warm, dry, intact, normal color. Absent: rash <Oma Brewer - Last Filed: 11/03/23 00:41> - General Exam Comments Initial Comments: Visual Physical Exam Vital signs reviewed General: Well-appearing, nontoxic, no acute distress. Head: Normocephalic, atraumatic Eyes: PERRLA, EOMI ENT: Airway patent Chest: Nonlabored breathing Skin: No visual rash, normal skin tone Neuro: Alert and oriented 3 Musculoskeletal: No gross abnormalities (Isa Sykes) Course Vital Signs 11/02/23 11/02/23 15:28 19:06 Temperature 98.9 F 98.3 F Pulse Rate 85 71 Respiratory 16 18 Rate Blood Pressure 133/67 176/77 O2 Sat by Pulse 97 97 Oximetry Medical Decision Making <Isa Sykes - Last Filed: 11/02/23 16:07> <Oma Brewer - Last Filed: 11/03/23 00:41> - Medical Decision Making I completed the quick note portion of this chart signed Isa Sykes PA-C (Isa Sykes) Was pt. sent in by a medical professional or institution ([facility], [employer], urgent care, hospital, or fpc...) When possible be specific @ -Sent in by her physical therapist Did you speak to anyone other than the patient for history (EMS, parent, family, police, friend...)? What history was obtained from this source @ -No Did you review nursing and triage notes (agree or disagree)? Why? @ -I reviewed and agree with nursing and triage notes Were old charts reviewed (outside hosp., previous admission, EMS record, old EKG, old radiological studies, urgent care reports/EKG's, fpc records)? Report findings @ -No old charts were reviewed Differential Diagnosis (chest pain, altered mental status, abdominal pain women, abdominal pain men, vaginal bleeding, weakness, fever, dyspnea, syncope, headach e, dizziness, GI bleed, back pain, seizure, CVA, palpatations, mental health, musculoskeletal)? @ -Differential Musculoskeletal Muscular strain, contusion, ligament sprain, fracture, arthritis, septic arthritis, bursitis, cellulitis, muscle spasm, nerve compression, DVT, arterial occlusion, herpes zoster, electrolyte abnormality, tumor.... This is not meant to be in all inclusive list EKG interpreted by me (3pts min.). @ -None X-rays interpreted by me (1pt min.). @ -None done CT interpreted by me (1pt min.). @ -None done U/S interpreted by me (1pt. min.). @ -Ultrasound of the right lower extremity obtained which shows no evidence of DVT, Zapata's cyst present] What testing was considered but not performed or refused? (CT, X-rays, U/S, labs)? Why? @ -None What meds were considered but not given or refused? Why? @ -None Did you discuss the management of the patient with other professionals (professionals i.e. , PA, MARKETING INTERN, lab, RT, psych nurse, social services designee, military lawyer, teacher, special skills officer, case worker)? Give summary @ -No Was smoking cessation discussed for >3mins.? @ -No Was critical care preformed (if so, how long)? @ -No Were there social determinants of health that impacted care today? How? (Homelessness, low income, unemployed, alcoholism, drug addiction, transportation, low edu. Level, literacy, decrease access to med. care, long term, rehab)? @ -No Was there de-escalation of care discussed even if they declined (Discuss DNR or withdrawal of care, Hospice)? DNR status @ -No What co-morbidities impacted this encounter? (DM, HTN, Smoking, COPD, CAD, Cancer, CVA, ARF, Chemo, Hep., AIDS, mental health diagnosis, sleep apnea, morbid obesity)? @ -None Was patient admitted / discharged? Hospital course, mention meds given and route, prescriptions, significant lab abnormalities, going to OR and other pertinent info. @ -Discharged. Patient presented to the emergency department for evaluation of right lower extremity swelling. That has been going on since April. She is on Eliquis which she is taking as prescribed. She denies any chest pain, shortness of breath. There is no redness, warmth to the lower extremity. She denies fever, chills. An ultrasound of the lower extremity was obtained which showed no evidence of DVT, there is a Zapata's cyst behind the right knee. Advised patient on these findings, advised compression of the leg and to follow up with her primary care provider. She is understanding and agreeable with plan. Patient stable at time of discharge. Case discussed with Dr. Ku. Undiagnosed new problem with uncertain prognosis? @ -No Drug Therapy requiring intensive monitoring for toxicity (Heparin, Nitro, Insulin, Cardizem)? @ -No Were any procedures done? @ -No Diagnosis/symptom? @ -Right lower extremity edema Acute, or Chronic, or Acute on Chronic? @ -acute on chronic Uncomplicated (without systemic symptoms) or Complicated (systemic symptoms)? @ -uncomplicated Side effects of treatment? @ -No Exacerbation, Progression, or Severe Exacerbation? @ -No Poses a threat to life or bodily function? How? (Chest pain, [place], [place], pneumonia, PE, COPD, DKA, ARF, appy, cholecystitis, CVA, Diverticulitis, Homicidal, Suicid al, threat to staff... and all critical care pts) @ -No (Oma Brewer) Disposition <Isa Sykes - Last Filed: 11/02/23 16:07> Is patient prescribed a controlled substance at d/c from ED?: No <Oma Brewer - Last Filed: 11/03/23 00:41> Clinical Impression: Edema of right lower leg Disposition: HOME SELF-CARE Condition: Stable Instructions (If sedation given, give patient instructions): Leg Edema (ED) Additional Instructions: Please follow up with your primary care provider. Return to the emergency department for new or worsening symptoms. Referrals: Kiko Flores MD [Primary Care Provider] - 1-2 days
--- NOTE | 2023-11-02 16:39 | US ---
EXAMINATION TYPE: US venous doppler duplex LE RT DATE OF EXAM: 11/02/2023 4:26 PM COMPARISON: NONE CLINICAL INDICATION: Female, 83 years old with history of pain; ? Hx DVT that was in popliteal area; lower extremity swelling since april SIDE PERFORMED: Right TECHNIQUE: The lower extremity deep venous system is examined utilizing real time linear array sonog jadon with graded compression, doppler sonography and color-flow sonography. VESSELS IMAGED: Common Femoral Vein Deep Femoral Vein Greater Saphenous Vein * Femoral Vein Popliteal Vein Small Saphenous Vein * Proximal Calf Veins Posterior tibial veins (* superficial vessels) Right Leg: Negative for DVT Bakers cyst right popliteal fossa IMPRESSION: 1. No evidence for DVT right lower extremity. 2. A small 3.9 x 1.2 x 0.7 cm Zapata's cyst incidentally noted.
[2023-11-02 19:10] VITALS: BP 176/77; PULSE 71; RESP 18; TEMP 98.3
== END 2023-11-02 19:11 | disposition home or self-care (01) ==
LOC: EC 15:26
DX: M71.21 Synovial cyst of popliteal space [Baker], right knee (principal); Z79.01 Long term (current) use of anticoagulants; Z88.8 Allergy status to other drugs, medicaments and biological substances
CPT/HCPCS: 99283

== ENCOUNTER 2024-02-04 17:09 | Inpatient (IN) | payer MEDICARE ==
[2024-02-04 18:51] LABS: Anisocytosis Slight; Basophils # (A) 0.1 k/uL (0-0.2); Basophils % (A) 1 %; Eosinophils # (A) 0.2 k/uL (0-0.7); Eosinophils % (A) 4 %; HCT 24.7 % (34.0-46.0); HGB 7.3 gm/dL (11.4-16.0); Hypochromasia Marked; Lymphocytes # (A) 1.1 k/uL (1.0-4.8); Lymphocytes % (A) 16 %; MCH 22.6 pg (25.0-35.0); MCHC 29.4 g/dL (31.0-37.0); MCV 76.7 fL (80.0-100.0); Mean Platelet Volume 8.3; Microcytosis Moderate; Monocytes # (A) 0.5 k/uL (0-1.0); Monocytes % (A) 7 %; Neutrophils # (A) 4.6 k/uL (1.3-7.7); Neutrophils % (A) 70 %; Platelet Count 377 k/uL (150-450); Poikilocytosis Moderate; RBC 3.21 m/uL (3.80-5.40); RDW 19.3 % (11.5-15.5); WBC 6.6 k/uL (3.8-10.6)
[2024-02-04 19:02] LABS: ALT 15 U/L (4-34); AST 23 U/L (14-36); African American GFR (CKD) 84 (>60 ml/min/1.73 sqM); Alkaline Phosphatase 83 U/L (38-126); Anion Gap 6 mmol/L; Blood Urea Nitrogen 17 mg/dL (7-17); Calcium 9.4 mg/dL (8.4-10.2); Carbon Dioxide 26 mmol/L (22-30); Chloride 107 mmol/L (98-107); Glucose 90 mg/dL (74-99); Non-African American GFR(CKD) 73 (>60 ml/min/1.73 sqM); Potassium 4.2 mmol/L (3.5-5.1); Sodium 139 mmol/L (137-145); Total Bilirubin 0.4 mg/dL (0.2-1.3); Total Protein 6.7 g/dL (6.3-8.2)
--- NOTE | 2024-02-04 19:48 | ED ---
Recheck HPI - General Source: patient, RN notes reviewed Mode of arrival: ambulatory Limitations: no limitations - History of Present Illness Complaint: abnormal lab <Shawna Stewart - Last Filed: 02/04/24 19:46> - General Source: patient, RN notes reviewed, old records reviewed Mode of arrival: ambulatory Limitations: no limitations - History of Present Illness Complaint: abnormal lab -: unknown Returns Today for: Called Because of Abnormal Lab/Test Symptoms Since Prior Visit: no new symptoms (Increased shortness of breath) Context: called for abnormal lab result, ran out of medication Associated Symptoms: malaise Treatments Prior to Arrival: other (0) <Rui Nguyen - Last Filed: 02/23/24 14:05> - General Chief Complaint: Recheck/Abnormal Lab/Rx Stated Complaint: low hemaglobin Time Seen by Provider: 02/04/24 19:40 - History of Present Illness Initial Comments: Quick Note: This is an 84-year-old female who presents to the emergency department for low hemoglobin. Patient had blood work done at her primary care provider's office demonstrating decreased hemoglobin levels. She does have a history of iron deficiency anemia requiring blood transfusions. Reports feeling generally weak and somewhat short of breath, which is how she has felt in the past when her hemoglobin was low. (Shawna Stewart) This is a 84-year-old female on Eliquis for hemoglobin low hemoglobin level with outpatient hemoglobin checked and being 8.2 (Rui Nguyen) - Related Data Home Medications Medication Instructions Recorded Confirmed Magnesium Oxide [Mag-Ox] 400 mg PO HS 02/05/24 02/05/24 Vitamin B Complex 1 cap PO DAILY 02/05/24 02/05/24 Previous Rx's Medication Instructions Recorded Pantoprazole Sodium [Protonix] 40 mg PO DAILY #90 tab 02/09/24 Sucralfate [Carafate] 1 gm PO AC-TID #90 ml 02/09/24 Allergies Allergy/AdvReac Type Severity Reaction Status Date / Time dextromethorphan AdvReac "Keeps her Verified 02/05/24 08:48 [From NyQuil] awake" doxylamine [From NyQuil] AdvReac "Keeps her Verified 02/05/24 08:48 awake" pseudoephedrine AdvReac "Keeps her Verified 02/05/24 08:48 [From Sudafed] awake" Review of Systems ROS Other: All systems not noted in ROS Statement are negative. <HeathdaviYojanaShawna - Last Filed: 02/04/24 19:46> ROS Other: All systems not noted in ROS Statement are negative. <Rui Nguyen - Last Filed: 02/23/24 14:05> ROS Statement: Those systems with pertinent positive or pertinent negative responses have been documented in the HPI. Past Medical History Past Medical History: GI Bleed, Pulmonary Embolus (PE) Additional Past Medical History / Comment(s): Blood clot in right leg, and a clot in the lung as well. History of Any Multi-Drug Resistant Organisms: None Reported Past Surgical History: No Surgical Hx Reported Additional Past Surgical History / Comment(s): beryl to lt arm removed, IVC filter Past Anesthesia/Blood Transfusion Reactions: No Reported Reaction Past Psychological History: No Psychological Hx Reported Smoking Status: Never smoker Past Alcohol Use History: None Reported Past Drug Use History: None Reported - Past Family History Mother Family Medical History: Rheumatoid Arthritis (RA) Father Family Medical History: COPD <Shawna Stewart - Last Filed: 02/04/24 19:46> General Exam Limitations: no limitations <Shawna Stewart - Last Filed: 02/04/24 19:46> General appearance: alert, in no apparent distress Head exam: Present: atraumatic, normocephalic, normal inspection Eye exam: Present: normal appearance, PERRL, EOMI. Absent: scleral icterus, conjunctival injection, periorbital swelling ENT exam: Present: normal exam, mucous membranes moist Neck exam: Present: normal inspection. Absent: tenderness, meningismus, lympha denopathy Respiratory exam: Present: normal lung sounds bilaterally. Absent: respiratory distress, wheezes, rales, rhonchi, stridor Cardiovascular Exam: Present: regular rate, normal rhythm, normal heart sounds. Absent: systolic murmur, diastolic murmur, rubs, gallop, clicks GI/Abdominal exam: Present: soft, normal bowel sounds. Absent: distended, tenderness, guarding, rebound, rigid Extremities exam: Present: normal inspection, full ROM, normal capillary refill. Absent: tenderness, pedal edema, joint swelling, calf tenderness Back exam: Present: normal inspection Neurological exam: Present: alert, oriented X3, CN II-XII intact Psychiatric exam: Present: normal affect, normal mood Skin exam: Present: warm, dry, intact, normal color. Absent: rash <Rui Nguyen - Last Filed: 02/23/24 14:05> - General Exam Comments Initial Comments: Visual Physical Exam Vital signs reviewed General: Well-appearing, nontoxic, no acute distress. Head: Normocephalic, atraumatic Eyes: PERRLA, EOMI ENT: Airway patent Chest: Nonlabored breathing Skin: No visual rash, normal skin tone Neuro: Alert and oriented 3 Musculoskeletal: No gross abnormalities (Shawna Stewart) Course <Rui Nguyen - Last Filed: 02/23/24 14:05> Vital Signs 02/04/24 02/05/24 02/05/24 17:12 03:26 06:00 Temperature 97.9 F Pulse Rate 99 79 72 Respiratory 20 17 17 Rate Blood Pressure 175/78 132/66 139/69 O2 Sat by Pulse 99 96 97 Oximetry 02/05/24 02/05/24 02/05/24 07:30 11:02 13:41 Temperature Pulse Rate 80 78 90 Respiratory 18 18 18 Rate Blood Pressure 139/65 140/68 142/68 O2 Sat by Pulse 98 99 Oximetry 02/05/24 02/05/24 02/05/24 15:42 17:49 19:02 Temperature Pulse Rate 81 64 87 Respiratory 18 18 16 Rate Blood Pressure 128/66 152/74 153/78 O2 Sat by Pulse 95 96 95 Oximetry - Reevaluation(s) Reevaluation #1: 02/04/24 22:39 Medical records reviewed (Rui Nguyen) Reevaluation #2: 02/04/24 22:40 Patient is shortness of breath especially with exertion here in the ER (Rui Nguyen) Reevaluation #3: 02/04/24 22:40 Patient informed of results and questions answered (Rui Nguyen) Reevaluation #4: Was pt. sent in by a medical professional or institution (, PA, SAFETY DEPOSIT CLERK, urgent care, hospital, or intermediate...) When possible be specific @ -no Did you speak to anyone other than the patient for history (EMS, parent, family, police, friend...)? What history was obtained from this source @ -no Did you review nursing and triage notes (agree or disagree)? Why? @ -agree Are old charts reviewed (outside hosp., previous admission, EMS record, old EKG, old radiological studies, urgent care reports/EKG's, intermediate records)? Report findings @ -yes Differential Diagnosis (chest pain, altered mental status, abdominal pain women, abdominal pain men, vaginal bleeding, weakness, fever, dyspnea, syncope, headache, dizziness, GI bleed, back pain, seizure, CVA, palpatations, mental health, musculoskeletal)? @ -prior EKG interpreted by me (3pts min.). @ -yes X-rays interpreted by me (1pt min.). @ -no CT interpreted by me (1pt min.). @ -no U/S interpreted by me (1pt. min.). @ -no What testing was considered but not performed or refused? (CT, X-rays, U/S, labs)? Why? @ -none What meds were considered but not given or refused? Why? @ -none Did you discuss the management of the patient with other professionals (professionals i.e. , PA, SAFETY DEPOSIT CLERK, lab, RT, psych nurse, social insurance administrator, globe changer, teacher, correctional officer sergeant, telephonic nurse case manager)? Give summary @ -no Was smoking cessation discussed for >3mins.? @ -no Was critical care preformed (if so, how long)? @ -yes31 Were there social determinants of health that impacted care today? How? (Homelessness, low income, unemployed, alcoholism, drug addiction, transportation, low edu. Level, literacy, decrease access to med. care, prison, rehab)? @ -none Was there de-escalation of care discussed even if they declined (Discuss DNR or withdrawal of care, Hospice)? DNR status @ -no What co-morbidities impacted this encounter? (DM, HTN, Smoking, COPD, CAD, Cancer, CVA, ARF, Chemo, Hep., AIDS, mental health diagnosis, sleep apnea, morbid obesity)? @ -none Was patient admitted / discharged? Hospital course, mention meds given and route, prescriptions, significant lab abnormalities, going to OR and other pertinent info. @ - 84 female will be admitted for anemia and transfusion symptomatic anemia from GI bleed, patient is on Eliquis does have IVC filter concern to come off Eliquis Admitted Undiagnosed new problem with uncertain prognosis? @ -no Drug Therapy requiring intensive monitoring for toxicity (Heparin, Nitro, In sulin, Cardizem)? @ -no Were any procedures done? @ -no Diagnosis/symptom? @ -GI bleeding coagulopathy Acute, or Chronic, or Acute on Chronic? @ -Acute Uncomplicated (without systemic symptoms) or Complicated (systemic symptoms)? @ -Complicated Side effects of treatment? @ -no Exacerbation, Progression, or Severe Exacerbation? @ -exacerbation Poses a threat to life or bodily function? How? (Chest pain, [place], [place], pneumonia, PE, COPD, DKA, ARF, appy, cholecystitis, CVA, Diverticulitis, Homicidal, Suicidal, threat to staff... and all critical care pts) @ -yes significant GI bleed on anticoagulation (Rui Nguyen) Reevaluation #5: Differential Dyspnea: Coronary syndrome, arrhythmia, tamponade, asthma, COPD, pulmonary embolism, pneumonia, pneumothorax, pulmonary effusion, anaphylaxis, diabetic ketoacidosis, flailed chest, pulmonary contusion, diaphragmatic rupture, anemia, neuromuscular, this is not meant to be an all-inclusive list. Differential GI Bleed: Esophageal varices, aortoenteric fistula, Charis-Navarro, gastritis, peptic ulcer disease, diverticulosis, inflammatory bowel disease, hemorrhoids, fissure, colitis, malignancy, Meckel's diverticulum, this is not meant to be an all- inclusive list. (Rui Nguyen) - Consultations Consultation #1: Spoke with admitting physicians who agreed to admit this patient (Rui Nguyen) Medical Decision Making - Lab Data Result diagrams: 02/04/24 18:40 02/04/24 18:40 <Shawna Stewart - Last Filed: 02/04/24 19:46> - Lab Data Result diagrams: 02/09/24 07:15 02/09/24 07:15 <Rui Nguyen - Last Filed: 02/23/24 14:05> - Medical Decision Making I performed the QuickNote portion of this chart. Signed Shawna Stewart PA-C. (Shawna Stewart) 84 female will be admitted for anemia and transfusion symptomatic anemia from GI bleed, patient is on Eliquis does have IVC filter concern to come off Eliquis (Rui Nguyen) - Lab Data Lab Results 02/04/24 02/04/24 02/04/24 Range/Units 18:40 18:40 18:40 WBC 6.6 (3.8-10.6) k/uL RBC 3.21 L (3.80-5.40) m/uL Hgb 7.3 L (11.4-16.0) gm/dL Hct 24.7 L (34.0-46.0) % MCV 76.7 L (80.0-100.0) fL MCH 22.6 L (25.0-35.0) pg MCHC 29.4 L (31.0-37.0) g/dL RDW 19.3 H (11.5-15.5) % Plt Count 377 (150-450) k/uL MPV 8.3 Neutrophils % 70 % Lymphocytes % 16 % Monocytes % 7 % Eosinophils % 4 % Basophils % 1 % Neutrophils # 4.6 (1.3-7.7) k/uL Lymphocytes # 1.1 (1.0-4.8) k/uL Monocytes # 0.5 (0-1.0) k/uL Eosinophils # 0.2 (0-0.7) k/uL Basophils # 0.1 (0-0.2) k/uL Hypochromasia Marked Poikilocytosis Moderate Anisocytosis Slight Microcytosis Moderate Sodium 139 (137-145) mmol/L Potassium 4.2 (3.5-5.1) mmol/L Chloride 107 (98-107) mmol/L Carbon Dioxide 26 (22-30) mmol/L Anion Gap 6 mmol/L BUN 17 (7-17) mg/dL Creatinine 0.76 (0.52-1.04) mg/dL Est GFR (CKD-EPI)AfAm 84 (>60 ml/min/1.73 sqM) Est GFR (CKD-EPI)NonAf 73 (>60 ml/min/1.73 sqM) Glucose 90 (74-99) mg/dL Calcium 9.4 (8.4-10.2) mg/dL Total Bilirubin 0.4 (0.2-1.3) mg/dL AST 23 (14-36) U/L ALT 15 (4-34) U/L Alkaline Phosphatase 83 (38-126) U/L Total Protein 6.7 (6.3-8.2) g/dL Albumin 4.0 (3.5-5.0) g/dL Blood Type A Positive Blood Type Recheck A Pos Bld Type Recheck Status No Antibody Screen NEGATIVE Crossmatch See Detail Spec Expiration Date 02/07/2024 - 2339 Critical Care Time Critical Care Time: Yes Total Critical Care Time: 31 <Rui Nguyen - Last Filed: 02/23/24 14:05> Disposition <Shawna Stewart - Last Filed: 02/04/24 19:46> Is patient prescribed a controlled substance at d/c from ED?: No Time of Disposition: 22:30 <Rui Nguyen - Last Filed: 02/23/24 14:05> Clinical Impression: Weakness, GI bleed, Anemia, Debility, Coagulopathy Disposition: ADMITTED IP TO THIS [facility] Condition: Serious
[2024-02-04] MEDS ORDERED: ONDANSETRON 4 MG/2 ML VIAL IVP PRN (22:37)
[2024-02-04] MEDS ORDERED: NALOXONE 0.4 MG/ML 1 ML VIAL IV PRN (22:37)
[2024-02-04] MEDS: SODIUM CHLORIDE 0.9% 1,000 ML IV SCH (23:24)
[2024-02-05] MEDS: PANTOPRAZOLE 40 MG/10 ML VIAL IV SCH (08:22)
[2024-02-05 08:32] LABS: Anisocytosis Slight; Basophils # (A) 0.1 k/uL (0-0.2); Basophils % (A) 1 %; Eosinophils # (A) 0.3 k/uL (0-0.7); Eosinophils % (A) 6 %; HCT 26.3 % (34.0-46.0); HGB 7.2 gm/dL (11.4-16.0); Hypochromasia Marked; Lymphocytes # (A) 0.8 k/uL (1.0-4.8); Lymphocytes % (A) 18 %; MCH 21.7 pg (25.0-35.0); MCHC 27.5 g/dL (31.0-37.0); Mean Platelet Volume 6.3; Microcytosis Slight; Monocytes # (A) 0.4 k/uL (0-1.0); Monocytes % (A) 9 %; Neutrophils # (A) 2.8 k/uL (1.3-7.7); Neutrophils % (A) 64 %; Platelet Count 381 k/uL (150-450); Poikilocytosis Slight; RBC 3.32 m/uL (3.80-5.40); RDW 18.7 % (11.5-15.5); WBC 4.4 k/uL (3.8-10.6)
[2024-02-05] MEDS ORDERED: ACETAMINOPHEN TAB 325 MG TAB PO PRN (09:43)
[2024-02-05] MEDS ORDERED: NALOXONE 0.4 MG/ML 1 ML VIAL IV PRN (09:43)
[2024-02-05] MEDS ORDERED: MELATONIN 3 MG TABLET PO PRN (09:43)
[2024-02-05] MEDS ORDERED: MAG HYDROX/AL HYDROX/SIMETH 30 ML CUP PO PRN (09:43)
[2024-02-05] MEDS: SODIUM FERRIC GLUCONAT-SUCROSE 125 MG in SODIUM CHLORIDE 0.9% 100 ML IVPB SCH (10:22)
[2024-02-05 12:41] LABS: Reticulocyte % 6.5 % (0.5-2.0)
--- NOTE | 2024-02-05 13:54 | P.HPIM ---
History of Present Illness H&P Date: 02/05/24 History of present illness; 84-year-old lady with past medical history significant for PE, DVT, gastric ulcer presented to the ER because of low hemoglobin levels. Patient stated that she was feeling fine and had routine blood work done at her PCP office who later called her stating that her hemoglobin was low. Patient denies any complaint of recent blood in the stools. Denies any hematemesis. Denies any nausea, vomiting abdominal pain. Patient states that she was feeling weak last few days. Patient is also complaining of shortness of breath on exertion. Denies any chest pain. There is no complaint orthopnea or PND. There is no complaint of swelling of feet. Because of this abnormal labs, patient was sent to the ER for further evaluation Initial lab work done in the ER showed WBC 6.6, hemoglobin 7.3, platelet count 377, sodium 139, potassium 4.2, BUN 17, creatinine 0.76, glucose 90, AST 23, ALT 15 Patient admitted to internal medicine service REVIEW OF SYSTEMS: CONSTITUTIONAL: No fever, no malaise, no fatigue. HEENT: No recent visual problems or hearing problems. Denied any sore throat. CARDIOVASCULAR: No chest pain, orthopnea, PND, no palpitations, no syncope. PULMONARY: As mentioned above GASTROINTESTINAL: As mentioned above NEUROLOGICAL: No headaches, no weakness, no numbness. HEMATOLOGICAL: Denies any bleeding or petechiae. GENITOURINARY: Denies any burning micturition, frequency, or urgency. MUSCULOSKELETAL/RHEUMATOLOGICAL: Denies any joint pain, swelling, or any muscle pain. ENDOCRINE: Denies any polyuria or polydipsia. The rest of the 14-point review of systems is negative. PHYSICAL EXAMINATION: GENERAL: The patient is alert and oriented x3, not in any acute distress. Well developed, well nourished. HEENT: Pupils are round and equally reacting to light. EOMI. No scleral icterus. No conjunctival pallor. Normocephalic, atraumatic. No pharyngeal erythema. No thyromegaly. CARDIOVASCULAR: S1 and S2 present. No murmurs, rubs, or gallops. PULMONARY: Chest is clear to auscultation, no wheezing or crackles. ABDOMEN: Soft, nontender, nondistended, normoactive bowel sounds. No palpable organomegaly. MUSCULOSKELETAL: No joint swelling or deformity. EXTREMITIES: No cyanosis, clubbing, or pedal edema. NEUROLOGICAL: Gross neurological examination did not reveal any focal deficits. SKIN: No rashes. Assessment and plan Anemia Shortness of breath History of PE History of DVT History of gastric ulcer Monitor vital signs Monitor CBC Monitor CMP Ordered iron profile, iron saturation, vitamin B12 and folate levels Ordered FOBT Start IV Protonix Hold Eliquis Resume home medicine consult general surgery for evaluation, there is no GI coverage at this time Labs and medication were reviewed.. Continue same treatment. Continue with symptomatic treatment. Resume home medication. Monitor labs and vitals. DVT and GI prophylaxis. Further recommendations as per clinical course of the patient Dictation was produced using [employer] dictation software. please excuse any grammatical, word or spelling errors. Past Medical History Past Medical History: GI Bleed, Pulmonary Embolus (PE) Additional Past Medical History / Comment(s): Blood clot in right leg, and a clot in the lung as well. History of Any Multi-Drug Resistant Organisms: None Reported Past Surgical History: No Surgical Hx Reported Additional Past Surgical History / Comment(s): beryl to lt arm removed, IVC filter Past Anesthesia/Blood Transfusion Reactions: No Reported Reaction Past Psychological History: No Psychological Hx Reported Smoking Status: Never smoker Past Alcohol Use History: None Reported Past Drug Use History: None Reported - Past Family History Mother Family Medical History: Rheumatoid Arthritis (RA) Father Family Medical History: COPD Medications and Allergies Home Medications Medication Instructions Recorded Confirmed Type Apixaban [Eliquis] 5 mg PO BID #60 tab 06/02/23 02/05/24 Rx Magnesium Oxide [Mag-Ox] 400 mg PO HS 02/05/24 02/05/24 History Vitamin B Complex 1 cap PO DAILY 02/05/24 02/05/24 History Allergies Allergy/AdvReac Type Severity Reaction Status Date / Time dextromethorphan AdvReac "Keeps her Verified 02/05/24 08:48 [From NyQuil] awake" doxylamine [From NyQuil] AdvReac "Keeps her Verified 02/05/24 08:48 awake" pseudoephedrine AdvReac "Keeps her Verified 02/05/24 08:48 [From Sudafed] awake" Physical Exam Vitals: Vital Signs Temp Pulse Resp BP Pulse Ox 02/05/24 07:30 80 18 139/65 02/05/24 06:00 72 17 139/69 97 02/05/24 03:26 79 17 132/66 96 02/04/24 17:12 97.9 F 99 20 175/78 99 Intake and Output 02/04/24 02/05/24 02/05/24 22:59 06:59 14:59 Other: Weight 68.039 kg Results CBC & Chem 7: 02/05/24 08:11 02/04/24 18:40 Labs: Abnormal Lab Results - Last 24 Hours (Table) 02/04/24 02/05/24 Range/Units 18:40 08:11 RBC 3.21 L 3.32 L (3.80-5.40) m/uL Hgb 7.3 L 7.2 L (11.4-16.0) gm/dL Hct 24.7 L 26.3 L (34.0-46.0) % MCV 76.7 L 79.0 L (80.0-100.0) fL MCH 22.6 L 21.7 L (25.0-35.0) pg MCHC 29.4 L 27.5 L (31.0-37.0) g/dL RDW 19.3 H 18.7 H (11.5-15.5) % Lymphocytes # 0.8 L (1.0-4.8) k/uL
--- NOTE | 2024-02-05 14:30 | P.GSCN ---
History of Present Illness Consult date: 02/05/24 History of present illness: CHIEF COMPLAINT: Anemia HISTORY OF PRESENT ILLNESS: The patient is a 84-year-old female who presents with severe anemia, hemoglobin 7.2. He is on blood thinners Eliquis. She reports prior upper endoscopy by GI service and hospitalization for hemoglobin of less than 6.0, August 2023, 5 months ago. Patient has new complaints of swirling and gurgling when she swallows of the esophagus. She denies epigastric abdominal pain. Patient is tolerating soft diet. She is eating [place] fries at the time of my assessment. Patient is hard of hearing and wears hearing aids. No reports of blood in stools. No reports of dark stools or melena. General surgery is consulted for anemia. PAST MEDICAL HISTORY: See list and reviewed PAST SURGICAL HISTORY: See list and reviewed MEDICATIONS: See list and reviewed ALLERGIES: See list and reviewed SOCIAL HISTORY: See list and reviewed FAMILY HISTORY: See list and reviewed REVIEW OF ORGAN SYSTEMS: CONSTITUTIONAL: No fevers or chills. No recent weight loss. EYES: Denies any trouble with vision. No glasses. HEENT: Needs hearing aids. No nosebleeds. No difficulty swallowing. RESPIRATORY: History of pulmonary embolism. History of IVC filter. CARDIOVASCULAR: Has atrial fibrillation. GASTROINTESTINAL: History of gastric ulcers 1 cm with GI bleed diagnosed April 2023 hemoglobin 5.8. Colonoscopy April 2023. GENITOURINARY: Denies any blood in urine or increased urinary frequency. NEUROLOGICAL: Denies any numbness or tingling along the distal extremities. No seizure disorders or headaches. MUSCULOSKELETAL: Denies any back pain, stiffness or joint arthritis. SKIN: No current skin cancer. No rash. PSYCHIATRIC: Denies current depression or suicidal thoughts. ENDOCRINE: Denies current thyroid disorders. Denies any blood sugar glucose intolerance. HEME/LYMPHATIC: Denies any lumps and bumps around the neck. 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 On blood thinners. Presents with anemia. ALLERGY/IMMUNOLOGY: No immunoglobulin therapy. No immune deficiencies. BREAST: Denies current breast lumps, pain or nipple discharge. PHYSICAL EXAM: VITALS: Reviewed CONSTITUTIONAL: Well developed and in no acute distress. EYES: Conjuctivae without sclera icterus. Extraocular movements grossly intact. HEAD, EARS, NOSE, THROAT: Moist buccal mucosa. Head is atraumatic, normocephalic. Wears hearing aids. No nasal drainage. NECK: Supple. No JV distention. No thyroidomegaly. RESPIRATORY: Non-labored respirations and equal bilateral excursions. No gross wheezes. CARDIOVASCULAR: Palpable 2+ radial pulses. ABDOMEN: Nontender. Nondistended. LYMPH: No neck lymphadenopathy. MUSCULOSKELETAL: No clubbing cyanosis or edema SKIN: Warm and well perfused with good skin turgor. NEUROLOGIC: Cranial nerves II through XII grossly intact. No focal or lateralizing signs. PSYCH: Appropriate affect. Alert and oriented to person, place and time. Displays appropriate insight. CLINCAL LABS: Reviewed. Hemoglobin 7.3 to 7.2 g/dL, anemia. WBC normal 4.4. Platelets 381 IMAGING: Independently reviewed. CT of the abdomen pelvis reviewed from April 2023 demonstrates a large 50% incarceration hiatal hernia. Presence of IVC filter. No bowel obstruction. RECORDS: previous old records reviewed. Ultrasound right lower extremity October 2023 demonstrates negative for deep venous thrombosis. EGD August 2023 demonstrates large hiatal hernia with ulcers. Presence of healed gastric ulcer. Presence of diverticulosis. This is my independent interpretation. ASSESSMENT: 1. Anemia with history of bleeding gastric ulcer 2. Chronic anticoagulation for atrial fibrillation and deep venous thrombosis 3. Diaphragmatic hiatal hernia, incarceration PLAN: 1. IV fluid hydration. 2. Including for recurrence anemia recommend upper endoscopy possible dilation for stricture. 3. Patient is tolerating soft diet and may continue soft diet until n.p.o. after midnight for upper endoscopy. 4. Hold blood thinners in the interim. 5. All questions addressed. Shared decision making performed. ADVANCE DIRECTIVE: CODE STATUS in chart Thank you for this kind consultation. Past Medical History Past Medical History: GI Bleed, Pulmonary Embolus (PE) Additional Past Medical History / Comment(s): Blood clot in right leg, and a clot in the lung as well. History of Any Multi-Drug Resistant Organisms: None Reported Past Surgical History: No Surgical Hx Reported Additional Past Surgical History / Comment(s): beryl to lt arm removed, IVC filter Past Anesthesia/Blood Transfusion Reactions: No Reported Reaction Past Psychological History: No Psychological Hx Reported Smoking Status: Never smoker Past Alcohol Use History: None Reported Past Drug Use History: None Reported - Past Family History Mother Family Medical History: Rheumatoid Arthritis (RA) Father Family Medical History: COPD Medications and Allergies Home Medications Medication Instructions Recorded Confirmed Type Apixaban [Eliquis] 5 mg PO BID #60 tab 06/02/23 02/05/24 Rx Magnesium Oxide [Mag-Ox] 400 mg PO HS 02/05/24 02/05/24 History Vitamin B Complex 1 cap PO DAILY 02/05/24 02/05/24 History Allergies Allergy/AdvReac Type Severity Reaction Status Date / Time dextromethorphan AdvReac "Keeps her Verified 02/05/24 08:48 [From NyQuil] awake" doxylamine [From NyQuil] AdvReac "Keeps her Verified 02/05/24 08:48 awake" pseudoephedrine AdvReac "Keeps her Verified 02/05/24 08:48 [From Sudafed] awake" Surgical - Exam Vital Signs Temp Pulse Resp BP Pulse Ox 97.9 F 99 20 175/78 99 02/04/24 17:12 02/04/24 17:12 02/04/24 17:12 02/04/24 17:12 02/04/24 17:12 Results - Labs 02/05/24 08:11 02/04/24 18:40 Abnormal Lab Results - Last 24 Hours (Table) 02/04/24 02/05/24 02/05/24 Range/Units 18:40 08:11 08:11 RBC 3.21 L 3.32 L (3.80-5.40) m/uL Hgb 7.3 L 7.2 L (11.4-16.0) gm/dL Hct 24.7 L 26.3 L (34.0-46.0) % MCV 76.7 L 79.0 L (80.0-100.0) fL MCH 22.6 L 21.7 L (25.0-35.0) pg MCHC 29.4 L 27.5 L (31.0-37.0) g/dL RDW 19.3 H 18.7 H (11.5-15.5) % Lymphocytes # 0.8 L (1.0-4.8) k/uL Retic Count 6.5 H (0.5-2.0) % Diabetes panel 02/04/24 Range/Units 18:40 Sodium 139 (137-145) mmol/L Potassium 4.2 (3.5-5.1) mmol/L Chloride 107 (98-107) mmol/L Carbon Dioxide 26 (22-30) mmol/L BUN 17 (7-17) mg/dL Creatinine 0.76 (0.52-1.04) mg/dL Glucose 90 (74-99) mg/dL Calcium 9.4 (8.4-10.2) mg/dL AST 23 (14-36) U/L ALT 15 (4-34) U/L Alkaline Phosphatase 83 (38-126) U/L Total Protein 6.7 (6.3-8.2) g/dL Albumin 4.0 (3.5-5.0) g/dL Calcium panel 02/04/24 Range/Units 18:40 Calcium 9.4 (8.4-10.2) mg/dL Albumin 4.0 (3.5-5.0) g/dL Pituitary panel 02/04/24 Range/Units 18:40 Sodium 139 (137-145) mmol/L Potassium 4.2 (3.5-5.1) mmol/L Chloride 107 (98-107) mmol/L Carbon Dioxide 26 (22-30) mmol/L BUN 17 (7-17) mg/dL Creatinine 0.76 (0.52-1.04) mg/dL Glucose 90 (74-99) mg/dL Calcium 9.4 (8.4-10.2) mg/dL Adrenal panel 02/04/24 Range/Units 18:40 Sodium 139 (137-145) mmol/L Potassium 4.2 (3.5-5.1) mmol/L Chloride 107 (98-107) mmol/L Carbon Dioxide 26 (22-30) mmol/L BUN 17 (7-17) mg/dL Creatinine 0.76 (0.52-1.04) mg/dL Glucose 90 (74-99) mg/dL Calcium 9.4 (8.4-10.2) mg/dL Total Bilirubin 0.4 (0.2-1.3) mg/dL AST 23 (14-36) U/L ALT 15 (4-34) U/L Alkaline Phosphatase 83 (38-126) U/L Total Protein 6.7 (6.3-8.2) g/dL Albumin 4.0 (3.5-5.0) g/dL
[2024-02-06 09:59] LABS: ALT 15 U/L (8-44); AST 16 U/L (13-35); Albumin 3.6 g/dL (3.8-4.9); Albumin/Globulin Ratio 1.89 Ratio (1.60-3.17); Alkaline Phosphatase 86 U/L (41-126); Blood Urea Nitrogen 14.8 mg/dL (9.0-27.0); Calcium 8.5 mg/dL (8.7-10.3); Carbon Dioxide 23.6 mmol/L (21.6-31.8); Chloride 108 mmol/L (96-109); Globulin 1.9 g/dL (1.6-3.3); Glucose 98 mg/dL (70-110); Potassium 4.3 mmol/L (3.5-5.5); Sodium 140 mmol/L (135-145); Total Bilirubin <0.2 mg/dL (0.3-1.2); Total Protein 5.5 g/dL (6.2-8.2)
[2024-02-06 10:56] LABS: Basophils # (A) 0.06 X 10*3/uL (0.00-0.10); Basophils % (A) 1.4 %; Eosinophils # (A) 0.31 X 10*3/uL (0.04-0.35); Eosinophils % (A) 7.3 %; HCT 23.4 % (37.2-46.3); HGB 6.3 g/dL (12.0-15.0); Hypochromasia (M) 2+; Lymphocytes # (A) 0.98 X 10*3/uL (0.90-5.00); MCH 21.7 pg (27.0-32.0); MCHC 26.9 g/dL (32.0-37.0); MCV 80.7 FL (80.0-97.0); Mean Platelet Volume 9.5 FL (9.5-12.2); Microcytosis (M) 2+; Monocytes # (A) 0.62 X 10*3/uL (0.20-1.00); Monocytes % (A) 14.6 %; NRBC Per 100 WBC 0 X 10*3/uL (0.00-0.01); Neutrophils # (A) 2.28 X 10*3/uL (1.80-7.70); Neutrophils % (A) 53.5 %; Platelet Count 308 X 10*3/uL (140-440); RDW 19.4 % (11.5-14.5); WBC 4.26 X 10*3/uL (4.50-10.00)
--- NOTE | 2024-02-06 13:30 | P.PN ---
Subjective Progress Note Date: 02/06/24 84-year-old lady with past medical history significant for PE, DVT, gastric ulcer presented to the ER because of low hemoglobin levels. Patient stated that she was feeling fine and had routine blood work done at her PCP office who later called her stating that her hemoglobin was low. Patient denies any complaint of recent blood in the stools. Denies any hematemesis. Denies any nausea, vomiting abdominal pain. Patient states that she was feeling weak last few days. Patient is also complaining of shortness of breath on exertion. Denies any chest pain. There is no complaint orthopnea or PND. There is no complaint of swelling of feet. Because of this abnormal labs, patient was sent to the ER for further evaluation Initial lab work done in the ER showed WBC 6.6, hemoglobin 7.3, platelet count 377, sodium 139, potassium 4.2, BUN 17, creatinine 0.76, glucose 90, AST 23, ALT 15 Patient admitted to internal medicine service 02/05. Patient seen and examined. No acute issue overnight. Hemoglobin this morning 6.3, ordered 1 unit of packed red blood cell. Vital signs stable REVIEW OF SYSTEMS: CONSTITUTIONAL: No fever, no malaise,. CARDIOVASCULAR: No chest pain, no palpitations, no syncope. PULMONARY: No shortness of breath, no cough, GASTROINTESTINAL: No diarrhea, no nausea, no vomiting, no abdominal pain. NEUROLOGICAL: No headaches, no weakness, PHYSICAL EXAMINATION: GENERAL: The patient is alert and oriented x3, not in any acute distress. Well developed, well nourished. HEENT: Pupils are round and equally reacting to light. EOMI. No scleral icterus. No conjunctival pallor. Normocephalic, atraumatic. No pharyngeal erythema. No thyromegaly. CARDIOVASCULAR: S1 and S2 present. No murmurs, rubs, or gallops. PULMONARY: Chest is clear to auscultation, no wheezing or crackles. ABDOMEN: Soft, nontender, nondistended, normoactive bowel sounds. No palpable organomegaly. MUSCULOSKELETAL: No joint swelling or deformity. EXTREMITIES: No cyanosis, clubbing, or pedal edema. NEUROLOGICAL: Gross neurological examination did not reveal any focal deficits. SKIN: No rashes. Assessment and plan Anemia Shortness of breath History of PE History of DVT History of gastric ulcer Monitor vital signs Monitor CBC Monitor CMP Ordered iron profile, iron saturation, vitamin B12 and folate levels, results pending Ordered FOBT, results pending Ordered 1 unit of packed red blood cell on 02/05 Start IV Protonix Continue IV iron Hold Eliquis Resume home medicine General Surgery following, planning EGD n.p.o. after midnight Labs and medication were reviewed.. Continue same treatment. Continue with symptomatic treatment. Resume home medication. Monitor labs and vitals. DVT and GI prophylaxis. Further recommendations as per clinical course of the patient Dictation was produced using [employer] dictation software. please excuse any grammatical, word or spelling errors. Objective - Vital Signs Vital signs: Vital Signs Temp 97.9 F 02/06/24 07:29 Pulse 86 02/06/24 07:29 Resp 17 02/06/24 07:29 BP 131/84 02/06/24 07:29 Pulse Ox 94 L 02/06/24 07:29 FiO2 Intake & Output 02/05/24 02/06/24 02/06/24 18:59 06:59 18:59 Intake Total 60 Balance 60 Weight 68.8 kg Intake: Intake, IV Titration 60 Amount Sodium Chloride 0.9% 1, 60 000 ml @ 20 mls/hr IV . Q24H [facility] Rx#:[id number] Other: Voiding Method Toilet # Voids 1 - Labs CBC & Chem 7: 02/06/24 06:08 02/06/24 06:08 Labs: Abnormal Lab Results - Last 24 Hours (Table) 02/05/24 Range/Units 08:11 Retic Count 6.5 H (0.5-2.0) %
--- NOTE | 2024-02-06 14:53 | P.PN ---
Subjective Progress Note Date: 02/06/24 CHIEF COMPLAINT: Anemia HISTORY OF PRESENT ILLNESS: The patient is a 84-year-old female who presents wit h severe anemia, hemoglobin 7.2. Her last dose of Eliquis was Wednesday morning less than 36 to 48 hours ago. As a result, patient continues to bleed from effects of Eliquis. Today, hemoglobin down to 6.3. In her room, she has blood pending to be transfused. She denies abdominal pain. She denies blood in stools. She does confirm gurgling of the esophagus. REVIEW OF ORGAN SYSTEMS: HEENT: Needs hearing aids. No nosebleeds. No difficulty swallowing. RESPIRATORY: History of pulmonary embolism. History of IVC filter. CARDIOVASCULAR: Has atrial fibrillation. GASTROINTESTINAL: History of gastric ulcers 1 cm with GI bleed diagnosed April 2023 hemoglobin 5.8. Colonoscopy April 2023. HEME/LYMPHATIC: Denies any lumps and bumps around the neck. 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 On blood thinners. Presents with anemia. PHYSICAL EXAM: VITALS: Reviewed CONSTITUTIONAL: Well developed and in no acute distress. EYES: Conjuctivae without sclera icterus. Extraocular movements grossly intact. HEAD, EARS, NOSE, THROAT: Moist buccal mucosa. Head is atraumatic, normocephalic. Wears hearing aids. No nasal drainage. RESPIRATORY: Non-labored respirations and equal bilateral excursions. No gross wheezes. CARDIOVASCULAR: Palpable 2+ radial pulses. ABDOMEN: Nontender. Nondistended. MUSCULOSKELETAL: No clubbing cyanosis or edema SKIN: Warm and well perfused with good skin turgor. NEUROLOGIC: Cranial nerves II through XII grossly intact. No focal or lateralizing signs. PSYCH: Appropriate affect. Alert and oriented to person, place and time. Displays appropriate insight. CLINCAL LABS: Reviewed. Hemoglobin 7.3 to 7.2 g/dL, anemia. Today hemoglobin 6.3 g/dL. She is currently pending blood transfusion. ASSESSMENT: 1. Anemia with history of bleeding gastric ulcer 2. Chronic anticoagulation for atrial fibrillation and deep venous thrombosis 3. Diaphragmatic hiatal hernia, incarceration 4. Acute blood loss anemia due to Eliquis PLAN: 1. Agree with blood transfusion due to patient's underlying heart disease. 2. Patient is high risk for bleed due to recent Eliquis. Upper endoscopy for tomorrow morning described. 3. Symptoms of swishing in the esophagus/epigastrium consistent with a large diaphragmatic hiatal hernia which will be assessed during endoscopy. 4. Recommend likely hold of Eliquis due to current bleeding event and will likely need repair of hiatal hernia pending results of tomorrow Objective - Vital Signs Vital signs: Vital Signs Temp 98.4 F 02/06/24 14:44 Pulse 99 02/06/24 14:44 Resp 18 02/06/24 14:44 BP 117/70 02/06/24 14:44 Pulse Ox 96 02/06/24 14:44 FiO2 Intake & Output 02/05/24 02/06/24 02/06/24 18:59 06:59 18:59 Intake Total 60 0 Balance 60 0 Weight 68.8 kg Intake: Intake, IV Titration 60 Amount Sodium Chloride 0.9% 1, 60 000 ml @ 20 mls/hr IV . Q24H [facility] Rx#:[id number] Blood Product 0 Rc As-1 Unit 0 [id number] Other: Voiding Method Toilet # Voids 1 2 - Labs CBC & Chem 7: 02/06/24 06:08 02/06/24 06:08 Labs: Abnormal Lab Results - Last 24 Hours (Table) 02/04/24 02/06/24 02/06/24 Range/Units 18:40 06:08 06:08 WBC 4.26 L (4.50-10.00) X 10*3/uL RBC 2.90 L (4.10-5.20) X 10*6/uL Hgb 6.3 A* (12.0-15.0) g/dL Hct 23.4 L (37.2-46.3) % MCH 21.7 L (27.0-32.0) pg MCHC 26.9 L (32.0-37.0) g/dL RDW 19.4 H (11.5-14.5) % Hypochromasia (manual) 2+ A Microcytosis (manual) 2+ A Calcium 8.5 L (8.7-10.3) mg/dL Total Bilirubin <0.2 L (0.3-1.2) mg/dL Total Protein 5.5 L (6.2-8.2) g/dL Albumin 3.6 L (3.8-4.9) g/dL Crossmatch See Detail
[2024-02-06 14:54] LABS: % Iron Saturation 2.54 (12.00-45.00); Ferritin 27.5 ng/mL (10.0-291.0)
[2024-02-07] MEDS ORDERED: PROPOFOL 10 MG/ML 20 ML VIAL IV ONE (07:52)
[2024-02-07] MEDS ORDERED: LIDOCAINE 1% INJ 10MG/ML (20 ML MDV) ONE (07:52)
[2024-02-07] MEDS: IV FLUID CONTINUATION 1,000 ML IV ONE (07:53)
--- NOTE | 2024-02-07 08:17 | P.PCN ---
Date of Procedure: 02/07/24 Description of Procedure: PREOPERATIVE DIAGNOSIS: Acute gastrointestinal bleeding Status post blood transfusions Anticoagulant use POSTOPERATIVE DIAGNOSIS: Acute gastrointestinal bleeding Status post blood transfusions Anticoagulant use Diaphragmatic hiatal hernia Acute gastric ulcers with bleeding OPERATION: Esophagogastroduodenoscopy SURGEON: Mariaelena Odell MD ANESTHESIA: MAC. INDICATIONS: The patient is a 84-year-old female who presents with gastrointestinal bleeding. Benefits and risks of the procedure were described. Informed consent was obtained. DESCRIPTION: The patient was brought into the endoscopy suite and laid in the left lateral decubitus position. An Olympus gastroscope was passed along the posterior oropharynx down to the distal esophagus where the squamocolumnar junction was encountered at 32 cm from the incisors. The stomach was entered and no bile reflux was found. Additional findings are listed below. The first through third portion of the duodenum was examined and unremarkable. Retroflexion of the scope confirmed Hill grade 4 lower esophageal valve. The squamocolumnar junction demonstrated LA grade B erosive esophagitis. The stomach was desufflated. The patient tolerated the procedure well. FINDINGS: Squamocolumnar junction 33 cm from the incisors. Diaphragmatic hiatus at 38 cm. Hiatal hernia, 5 cm Hill grade 4 lower esophageal valve. LA grade B erosive esophagitis. No active duodenitis. No duodenal ulcers Acute multiple gastric ulcers with bleeding along diaphragmatic hiatus, 2 mm x 5 RECOMMENDATIONS: 1. Recommend repair of diaphragmatic hiatal hernia due to pressure gastric ulcers with bleeding 2. Recommend holding anticoagulants
--- NOTE | 2024-02-07 08:54 | P.PN ---
Subjective Progress Note Date: 02/07/24 This is an 84-year-old female who was originally sent to the emergency department after a low hemoglobin on outpatient lab work. Patient has a history of PE and DVT and was on anticoagulation. Patient does report some weakness over the last few days. Patient did receive 1 unit of packed red blood cells over the weekend. EGD completed this morning with Dr. Odell and showed multiple gastric ulcers and a diaphragmatic hiatal hernia. Objective - Vital Signs Vital signs: Vital Signs Temp 97.7 F 02/07/24 07:25 Pulse 98 02/07/24 07:25 Resp 18 02/07/24 07:25 BP 156/80 02/07/24 07:25 Pulse Ox 96 02/07/24 07:25 FiO2 Intake & Output 02/06/24 02/07/24 02/07/24 18:59 06:59 18:59 Intake Total 310 150 Balance 310 150 Weight 64.2 kg Intake: IV 150 Blood Product 310 Rc As-1 Unit 310 [id number] Other: Voiding Method Toilet Toilet # Voids 2 2 - Constitutional General appearance: Present: cooperative, no acute distress - EENT Eyes: Present: PERRLA - Neck Neck: Present: normal ROM. Absent: lymphadenopathy, rigidity - Respiratory Respiratory: bilateral: CTA - Cardiovascular Rhythm: regular Heart sounds: normal: S1, S2 - Gastrointestinal General gastrointestinal: Present: soft. Absent: tenderness - Integumentary Integumentary: Present: normal, normal turgor - Musculoskeletal Musculoskeletal: Present: generalized weakness - Psychiatric Psychiatric: Present: A&O x's 3 - Labs CBC & Chem 7: 02/06/24 06:08 02/06/24 06:08 Labs: Abnormal Lab Results - Last 24 Hours (Table) 02/04/24 02/05/24 02/06/24 Range/Units 18:40 08:11 06:08 WBC 4.26 L (4.50-10.00) X 10*3/uL RBC 2.90 L (4.10-5.20) X 10*6/uL Hgb 6.3 A* (12.0-15.0) g/dL Hct 23.4 L (37.2-46.3) % MCH 21.7 L (27.0-32.0) pg MCHC 26.9 L (32.0-37.0) g/dL RDW 19.4 H (11.5-14.5) % Hypochromasia (manual) 2+ A Microcytosis (manual) 2+ A Calcium (8.7-10.3) mg/dL Iron 13 L (50-170) UG/DL TIBC 512 H (228-460) UG/DL % Saturation 2.54 L (12.00-45.00) Transferrin 366.0 H (204.0-354.0) mg/dL Total Bilirubin (0.3-1.2) mg/dL Total Protein (6.2-8.2) g/dL Albumin (3.8-4.9) g/dL Crossmatch See Detail 02/06/24 Range/Units 06:08 WBC (4.50-10.00) X 10*3/uL RBC (4.10-5.20) X 10*6/uL Hgb (12.0-15.0) g/dL Hct (37.2-46.3) % MCH (27.0-32.0) pg MCHC (32.0-37.0) g/dL RDW (11.5-14.5) % Hypochromasia (manual) Microcytosis (manual) Calcium 8.5 L (8.7-10.3) mg/dL Iron (50-170) UG/DL TIBC (228-460) UG/DL % Saturation (12.00-45.00) Transferrin (204.0-354.0) mg/dL Total Bilirubin <0.2 L (0.3-1.2) mg/dL Total Protein 5.5 L (6.2-8.2) g/dL Albumin 3.6 L (3.8-4.9) g/dL Crossmatch Assessment and Plan (1) Anemia Current Visit: Yes Status: Acute Code(s): D64.9 - ANEMIA, UNSPECIFIED S NOMED Code(s): 300291853 (2) Weakness Current Visit: Yes Status: Acute Code(s): R53.1 - WEAKNESS SNOMED Code(s): 51524783 (3) History of DVT (deep vein thrombosis) Current Visit: Yes Status: Acute Code(s): Z86.718 - PERSONAL HISTORY OF OTHER VENOUS THROMBOSIS AND EMBOLISM SNOMED Code(s): 132343809 (4) History of pulmonary embolism Current Visit: Yes Status: Acute Code(s): Z86.711 - PERSONAL HISTORY OF PULMONARY EMBOLISM SNOMED Code(s): 012918319 (5) Hiatal hernia Current Visit: Yes Status: Acute Code(s): K44.9 - DIAPHRAGMATIC HERNIA WITHOUT OBSTRUCTION OR GANGRENE SNOMED Code(s): 67235391 (6) Gastric ulcer Current Visit: Yes Status: Acute Code(s): K25.9 - GASTRIC ULCER, UNSP ACUTE OR CHRONIC, W/O HEMOR OR PERF SNOMED Code(s): 921630609 Plan: Check CBC and CMP in the morning. Await further recommendations from surgeon. Continue to hold anticoagulation. Patient seen and evaluated by nurse practitioner, physician in agreement with plan
[2024-02-07 09:17] LABS: ALT 14 U/L (8-44); AST 19 U/L (13-35); Albumin 3.7 g/dL (3.8-4.9); Albumin/Globulin Ratio 1.95 Ratio (1.60-3.17); Alkaline Phosphatase 90 U/L (41-126); BUN/Creat Ratio 14.75 Ratio (12.00-20.00); Blood Urea Nitrogen 11.8 mg/dL (9.0-27.0); Calcium 8.7 mg/dL (8.7-10.3); Chloride 109 mmol/L (96-109); Globulin 1.9 g/dL (1.6-3.3); Glucose 87 mg/dL (70-110); Potassium 4.3 mmol/L (3.5-5.5); Sodium 142 mmol/L (135-145); Total Bilirubin 0.4 mg/dL (0.3-1.2); Total Protein 5.6 g/dL (6.2-8.2)
[2024-02-07 09:43] LABS: Basophils # (A) 0.06 X 10*3/uL (0.00-0.10); Basophils % (A) 1.1 %; Eosinophils # (A) 0.36 X 10*3/uL (0.04-0.35); Eosinophils % (A) 6.7 %; HCT 27.6 % (37.2-46.3); HGB 7.7 g/dL (12.0-15.0); Lymphocytes # (A) 1.17 X 10*3/uL (0.90-5.00); Lymphocytes % (A) 21.8 %; MCH 22.6 pg (27.0-32.0); MCHC 27.9 g/dL (32.0-37.0); MCV 81.2 FL (80.0-97.0); Mean Platelet Volume 9.7 FL (9.5-12.2); Monocytes # (A) 0.77 X 10*3/uL (0.20-1.00); Monocytes % (A) 14.3 %; NRBC Per 100 WBC 0 X 10*3/uL (0.00-0.01); Neutrophils # (A) 2.99 X 10*3/uL (1.80-7.70); Neutrophils % (A) 55.7 %; Platelet Count 302 X 10*3/uL (140-440); RDW 18.9 % (11.5-14.5); WBC 5.37 X 10*3/uL (4.50-10.00)
[2024-02-07] MEDS: SUCRALFATE 1 GM TAB PO SCH (13:20)
[2024-02-08 08:34] LABS: HCT 29.6 % (37.2-46.3); HGB 8.3 g/dL (12.0-15.0); MCH 22.8 pg (27.0-32.0); MCV 81.3 FL (80.0-97.0); NRBC Per 100 WBC 0 X 10*3/uL (0.00-0.01); Platelet Count 290 X 10*3/uL (140-440); RBC 3.64 X 10*6/uL (4.10-5.20); RDW 19.4 % (11.5-14.5); WBC 6.29 X 10*3/uL (4.50-10.00)
[2024-02-08 08:48] LABS: ALT 15 U/L (8-44); AST 22 U/L (13-35); Albumin 3.6 g/dL (3.8-4.9); Albumin/Globulin Ratio 1.71 Ratio (1.60-3.17); Alkaline Phosphatase 90 U/L (41-126); Blood Urea Nitrogen 10.4 mg/dL (9.0-27.0); Calcium 8.8 mg/dL (8.7-10.3); Carbon Dioxide 22.3 mmol/L (21.6-31.8); Chloride 109 mmol/L (96-109); Globulin 2.1 g/dL (1.6-3.3); Glucose 91 mg/dL (70-110); Potassium 4.4 mmol/L (3.5-5.5); Sodium 142 mmol/L (135-145); Total Bilirubin 0.2 mg/dL (0.3-1.2); Total Protein 5.7 g/dL (6.2-8.2)
--- NOTE | 2024-02-08 09:04 | P.PN ---
Subjective Progress Note Date: 02/08/24 This is an 84-year-old female who was originally sent to the emergency department after a low hemoglobin on outpatient lab work. Patient has a history of PE and DVT and was on anticoagulation. Patient does report some weakness over the last few days. Patient did receive 1 unit of packed red blood cells over the weekend. EGD completed this morning with Dr. Odell and showed multiple gastric ulcers and a diaphragmatic hiatal hernia. 02/08/2024 Patient is seen this morning sitting up in bed. Hemoglobin remains stable. Vitals are stable. Dr. Odell is planning a UGI today. Objective - Vital Signs Vital signs: Vital Signs Temp 98.2 F 02/08/24 07:50 Pulse 76 02/08/24 07:50 Resp 16 02/08/24 07:50 BP 150/87 02/08/24 07:50 Pulse Ox 96 02/08/24 01:06 FiO2 Intake & Output 02/07/24 02/08/24 02/08/24 18:59 06:59 18:59 Intake Total 150 Balance 150 Weight 63 kg Intake: IV 150 Other: Voiding Method Toilet # Voids 2 1 - Constitutional General appearance: Present: cooperative, no acute distress - EENT Eyes: Present: PERRLA - Neck Neck: Present: normal ROM. Absent: lymphadenopathy, rigidity - Respiratory Respiratory: bilateral: CTA - Cardiovascular Rhythm: regular Heart sounds: normal: S1, S2 - Gastrointestinal General gastrointestinal: Present: soft. Absent: tenderness - Integumentary Integumentary: Present: normal, normal turgor - Psychiatric Psychiatric: Present: A&O x's 3 - Labs CBC & Chem 7: 02/08/24 04:09 02/08/24 04:09 Labs: Abnormal Lab Results - Last 24 Hours (Table) 02/05/24 02/07/24 02/07/24 Range/Units 08:11 03:57 03:57 RBC 3.40 L (4.10-5.20) X 10*6/uL Hgb 7.7 L (12.0-15.0) g/dL Hct 27.6 L (37.2-46.3) % MCH 22.6 L (27.0-32.0) pg MCHC 27.9 L (32.0-37.0) g/dL RDW 18.9 H (11.5-14.5) % MPV (9.5-12.2) FL Eosinophils # 0.36 H (0.04-0.35) X 10*3/uL Total Bilirubin (0.3-1.2) mg/dL Total Protein 5.6 L (6.2-8.2) g/dL Albumin 3.7 L (3.8-4.9) g/dL RBC Folate 1,205 H (280 - 791) ng/mL 02/08/24 02/08/24 Range/Units 04:09 04:09 RBC 3.64 L (4.10-5.20) X 10*6/uL Hgb 8.3 L (12.0-15.0) g/dL Hct 29.6 L (37.2-46.3) % MCH 22.8 L (27.0-32.0) pg MCHC 28.0 L (32.0-37.0) g/dL RDW 19.4 H (11.5-14.5) % MPV 9.0 L (9.5-12.2) FL Eosinophils # (0.04-0.35) X 10*3/uL Total Bilirubin 0.2 L (0.3-1.2) mg/dL Total Protein 5.7 L (6.2-8.2) g/dL Albumin 3.6 L (3.8-4.9) g/dL RBC Folate (280 - 791) ng/mL Assessment and Plan (1) Anemia Current Visit: Yes Status: Acute Code(s): D64.9 - ANEMIA, UNSPECIFIED SNOMED Code(s): 445266670 (2) Weakness Current Visit: Yes Status: Acute Code(s): R53.1 - WEAKNESS SNOMED Code(s): 55696211 (3) History of DVT (deep vein thrombosis) Current Visit: Yes Status: Acute Code(s): Z86.718 - PERSONAL HISTORY OF OTHER VENOUS THROMBOSIS AND EMBOLISM SNOMED Code(s): 220756622 (4) History of pulmonary embolism Current Visit: Yes Status: Acute Code(s): Z86.711 - PERSONAL HISTORY OF PULMONARY EMBOLISM SNOMED Code(s): 261011908 (5) Hiatal hernia Current Visit: Yes Status: Acute Code(s): K44.9 - DIAPHRAGMATIC HERNIA WITHOUT OBSTRUCTION OR GANGRENE SNOMED Code(s): 70926778 (6) Gastric ulcer Current Visit: Yes Status: Acute Code(s): K25.9 - GASTRIC ULCER, UNSP ACUTE OR CHRONIC, W/O HEMOR OR PERF SNOMED Code(s): 744007173 Plan: Check CBC and CMP in the morning. Await further recommendations from surgeon and results of UGI Patient seen and evaluated by nurse practitioner, physician in agreement with plan
--- NOTE | 2024-02-08 10:32 | FL ---
EXAMINATION TYPE: FL UGI limited DATE OF EXAM: 02/08/2024 COMPARISON: None HISTORY: 84-year-old female paraesophageal hiatal hernia with dysphasia, EGD yesterday found a bleedi ng ulcer, shortness of breath with low hemoglobin TECHNIQUE: A single contrast UGI study is performed with 50 mL Isovue-370 contrast. A total of 59 s econds of fluoroscopic time was utilized during procedure and 41 images obtained. Total dose area pro duct (DAP) in uGy*m?, mGy*cm? (or similar): 55. FINDINGS: Allowing for single contrast, there is normal course and caliber of the thoracic esophagus. No eviden ce of fixed narrowing. Pueh-np-fjuyexon tertiary peristaltic waves are demonstrated. There is a moderate to large hiatal hernia with a third to half of the stomach located within the low er chest. On limited single contrast technique, no obvious large ulceration or large filling defect is encounte red. Gastroesophageal reflux was not seen during the course of the exam. Normal flow of contrast into the distal stomach and along the duodenal sweep. IVC filter incidentally noted. IMPRESSION: 1. Moderate to large hiatal hernia with a third to half the stomach located within the lower chest. N o gastroesophageal reflux seen. 2. Chfy-ak-aicwgodw esophageal dysmotility. 3. Mucosal assessment limited due to single contrast technique.
--- NOTE | 2024-02-08 12:28 | P.PN ---
Subjective Progress Note Date: 02/08/24 CHIEF COMPLAINT: GI bleed HISTORY OF PRESENT ILLNESS: Patient is status post EGD that revealed a diaphrag matic hiatal hernia and acute gastric ulcer with bleeding. Patient denies any abdominal pain. Denies any nausea or vomiting. Tolerated diet last night. Upper GI reported moderate to large hiatal hernia with a third to half of the stomach located in the lower chest. Mild to moderate esophageal dysmotility. Patient requesting to drink coffee and they have something to eat. Afebrile. Hemoglobin 7.7 up to 8.3 PHYSICAL EXAM: VITAL SIGNS: Reviewed GENERAL: Well-developed in no acute distress. HEENT: No sclera icterus. Extraocular movements grossly intact. Moist buccal mucosa. Head is atraumatic, normocephalic. Hears conversational speech. No nasal drainage. NECK: Supple without lymphadenopathy. CHEST: Non-labored respirations and equal bilateral excursions. CARDIOVASCULAR: Palpable 2+ radial pulses. ABDOMEN: Soft. Nondistended. Nontender. MUSCULOSKELETAL: No clubbing or cyanosis. NEUROLOGIC: No focal or lateralizing signs. Cranial nerves II through XII grossly intact. PSYCH: Appropriate affect. Alert and oriented to person, place and time. SKIN: Well perfused. Good skin turgor. ASSESSMENT: 1. Acute GI bleed status post EGD revealing a bleeding gastric ulcer and hiatal hernia 2. Large hiatal hernia 3. Acute blood loss anemia PLAN: -Dr. Odell recommended repair of diaphragmatic hiatal hernia due to pressure gastric ulcers with bleeding. Patient is not interested in any surgical intervention. She is requesting diet and coffee. She will be placed on regular diet with no straws or carbonated beverages. -Continue Carafate and Protonix -Continue to hold anticoagulants at least 4 to 6 weeks for ulcer to heal. Resuming anticoagulation increases risk of ulcer to rebleed. -Recommend repeating EGD before restarting anticoagulation -Surgical service will sign off. Please call with any questions or concerns. Physician Lens Coater note has been reviewed by physician. Signing provider agrees with the documented findings, assessment, and plan of care. Objective - Vital Signs Vital signs: Vital Signs Temp 98.2 F 02/08/24 12:00 Pulse 77 02/08/24 12:00 Resp 16 02/08/24 12:00 BP 151/85 02/08/24 12:00 Pulse Ox 96 02/08/24 01:06 FiO2 Intake & Output 02/07/24 02/08/24 02/08/24 18:59 06:59 18:59 Intake Total 150 Balance 150 Weight 63 kg Intake: IV 150 Other: Voiding Method Toilet Toilet # Voids 2 1 - Labs CBC & Chem 7: 02/08/24 04:09 02/08/24 04:09 Labs: Abnormal Lab Results - Last 24 Hours (Table) 02/05/24 02/08/24 02/08/24 Range/Units 08:11 04:09 04:09 RBC 3.64 L (4.10-5.20) X 10*6/uL Hgb 8.3 L (12.0-15.0) g/dL Hct 29.6 L (37.2-46.3) % MCH 22.8 L (27.0-32.0) pg MCHC 28.0 L (32.0-37.0) g/dL RDW 19.4 H (11.5-14.5) % MPV 9.0 L (9.5-12.2) FL Total Bilirubin 0.2 L (0.3-1.2) mg/dL Total Protein 5.7 L (6.2-8.2) g/dL Albumin 3.6 L (3.8-4.9) g/dL RBC Folate 1,205 H (280 - 791) ng/mL
[2024-02-09 01:10] VITALS: TEMP 98.2
[2024-02-09 06:54] VITALS: BP 144/79; PULSE 81; RESP 16
[2024-02-09 07:50] LABS: ALT 16 U/L (4-34); AST 25 U/L (14-36); African American GFR (CKD) 90 (>60 ml/min/1.73 sqM); Albumin 3.6 g/dL (3.5-5.0); Albumin/Globulin Ratio 1.4; Alkaline Phosphatase 89 U/L (38-126); Anion Gap 5 mmol/L; Blood Urea Nitrogen 12 mg/dL (7-17); Calcium 9.5 mg/dL (8.4-10.2); Carbon Dioxide 26 mmol/L (22-30); Chloride 108 mmol/L (98-107); Globulin 2.5 g/dL; Glucose 98 mg/dL (74-99); Non-African American GFR(CKD) 78 (>60 ml/min/1.73 sqM); Potassium 4.3 mmol/L (3.5-5.1); Sodium 139 mmol/L (137-145); Total Bilirubin 0.4 mg/dL (0.2-1.3); Total Protein 6.1 g/dL (6.3-8.2)
[2024-02-09 07:52] LABS: Anisocytosis Slight; HCT 31.5 % (34.0-46.0); Hypochromasia Marked; MCH 23.7 pg (25.0-35.0); MCHC 29.7 g/dL (31.0-37.0); MCV 79.8 fL (80.0-100.0); Mean Platelet Volume 6.6; Microcytosis Slight; Platelet Count 332 k/uL (150-450); Poikilocytosis Moderate; RBC 3.95 m/uL (3.80-5.40); RDW 19.8 % (11.5-15.5); WBC 5.6 k/uL (3.8-10.6)
[2024-02-09 07:59] LABS: HGB 9.4 gm/dL (11.4-16.0)
--- NOTE | 2024-02-09 08:41 | P.DS ---
Providers Date of admission: 02/04/24 22:37 Attending physician: Kiko Flores Consults: 02/05/24 09:43 Consult Physician Routine Consulting Provider: Mariaelena Odell Consult Reason/Comments: Low hemoglobin levels, history of ulcer Do you want consulting provider notified?: Yes Primary care physician: Kiko Flores Hospital Course: The patient was admitted essentially for acute blood loss anemia found to have peptic ulcer disease. Unfortunately, she has had recent DVT/PE. We will temporarily withhold Eliquis to help the ulcer heal and then have EGD done as an outpatient to verify resolution. History of diaphragmatic hernia. She chooses not to have this surgically repaired at this time. Patient Condition at Discharge: Serious Plan - Discharge Summary Discharge Rx Participant: No New Discharge Prescriptions: New Pantoprazole Sodium [Protonix] 40 mg PO DAILY #90 tab Continue Vitamin B Complex 1 cap PO DAILY Magnesium Oxide [Mag-Ox] 400 mg PO HS Discontinued Apixaban [Eliquis] 5 mg PO BID #60 tab Discharge Medication List Magnesium Oxide [Mag-Ox] 400 mg PO HS 02/05/24 [History] Vitamin B Complex 1 cap PO DAILY 02/05/24 [History] Pantoprazole Sodium [Protonix] 40 mg PO DAILY #90 tab 02/09/24 [Rx] Follow up Appointment(s)/Referral(s): Mariaelena Odell MD [STAFF PHYSICIAN] - 03/07/24 9:30 am Kiko Flores MD [Primary Care Provider] - 3 Days Patient Instructions/Handouts: Hiatal Hernia (DC), Gastrointestinal Bleeding (ED) Discharge Disposition: HOME SELF-CARE
== END 2024-02-09 11:06 | disposition home or self-care (01) | DRG 378 ==
LOC: EC 17:09 → 3SCARD 22:37 → 4SSUR 02-05 16:38
PROVIDERS: ADMIT Family Medicine; ATTEND Family Medicine
PROC: 30233N1 Transfusion of Nonautologous Red Blood Cells into Peripheral Vein, Percutaneous Approach (ICD-10-PCS; 2024-02-06)
PROC: 0DJ08ZZ Inspection of Upper Intestinal Tract, Via Natural or Artificial Opening Endoscopic (ICD-10-PCS; principal; 2024-02-07 08:05)
DX: K25.0 Acute gastric ulcer with hemorrhage (principal); D62 Acute posthemorrhagic anemia; D68.32 Hemorrhagic disorder due to extrinsic circulating anticoagulants; K44.0 Diaphragmatic hernia with obstruction, without gangrene; K22.10 Ulcer of esophagus without bleeding; I48.91 Unspecified atrial fibrillation; Z95.828 Presence of other vascular implants and grafts; H91.93 Unspecified hearing loss, bilateral; K22.4 Dyskinesia of esophagus; T45.515A Adverse effect of anticoagulants, initial encounter; K57.10 Diverticulosis of small intestine without perforation or abscess without bleeding; Z86.718 Personal history of other venous thrombosis and embolism; Z97.4 Presence of external hearing-aid; Z86.711 Personal history of pulmonary embolism; Z79.01 Long term (current) use of anticoagulants
CPT/HCPCS: 36415; 43235; 80053; 82607; 82728; 82747; 83540; 83550; 85025; 85027; 85045; 86850; 86900; 86901; 86920; 93005; 96365; 96375; 99285

== ENCOUNTER → 2024-04-18 | Outpatient (CLI) | payer MEDICARE ==
[2024-04-18 15:15] LABS: % Iron Saturation 10.3 (12.00-45.00)
[2024-04-18 17:50] LABS: Basophils # (A) 0.06 X 10*3/uL (0.00-0.10); Basophils % (A) 0.9 %; Eosinophils # (A) 0.19 X 10*3/uL (0.04-0.35); HCT 45.1 % (37.2-46.3); HGB 14.2 g/dL (12.0-15.0); Lymphocytes # (A) 1.24 X 10*3/uL (0.90-5.00); Lymphocytes % (A) 19.6 %; MCH 26.5 pg (27.0-32.0); MCHC 31.5 g/dL (32.0-37.0); MCV 84.1 FL (80.0-97.0); Mean Platelet Volume 9.9 FL (9.5-12.2); Monocytes # (A) 0.75 X 10*3/uL (0.20-1.00); Monocytes % (A) 11.9 %; NRBC Per 100 WBC 0 X 10*3/uL (0.00-0.01); Neutrophils # (A) 4.07 X 10*3/uL (1.80-7.70); Neutrophils % (A) 64.4 %; Platelet Count 329 X 10*3/uL (140-440); RBC 5.36 X 10*6/uL (4.10-5.20); RDW 19.3 % (11.5-14.5); WBC 6.32 X 10*3/uL (4.50-10.00)
== END | disposition home or self-care (01) ==
LOC: LABWHC1 10:19
PROVIDERS: ATTEND Surgery Plastic and Reconstructive Surgery
DX: D50.9 Iron deficiency anemia, unspecified (principal)
CPT/HCPCS: 36415; 83540; 83550; 85025

== ENCOUNTER → 2024-06-21 | Outpatient (CLI) | payer MEDICARE ==
--- NOTE | 2024-06-21 15:53 | XR ---
EXAMINATION TYPE: XR pelvis AP view DATE OF EXAM: 06/21/2024 3:40 PM COMPARISON: CT abdomen pelvis 12/28/2022 CLINICAL INDICATION: Female, 84 years old with history of M84.85, pain. Weakness. TECHNIQUE: A single AP view of the pelvis is obtained. FINDINGS: There is no acute fracture/dislocation evident in the pelvis. Drnu-qf-gxxmkydm axial join t space loss bilateral hips redemonstrated. Sacroiliac joints are symmetric. Scoliotic curvature and degenerative change greatest at right L4-L5 level is redemonstrated. There is partial visualization o f the known infrarenal IVC filter. Pubic symphysis is intact. IMPRESSION: As above. [facility], , 06/21/2024 3:50 PM
== END | disposition home or self-care (01) ==
LOC: RADXRMAIN 15:13
PROVIDERS: ATTEND Family Medicine
DX: M84.851 Other disorders of continuity of bone, right pelvic region and thigh (principal); M84.852 Other disorders of continuity of bone, left pelvic region and thigh; R53.1 Weakness
CPT/HCPCS: 72170

== ENCOUNTER → 2024-06-21 | Outpatient (CLI) | payer MEDICARE ==
--- NOTE | 2024-06-21 16:15 | US ---
EXAMINATION TYPE: US venous doppler duplex LE RT DATE OF EXAM: 06/21/2024 4:03 PM COMPARISON: US 11/02/2023 CLINICAL INDICATION: Female, 84 years old with history of RLE; R22.41 MASS AND LUMP, RIGHT LOWER NICHOLS B; Swelling. Pt does not take blood thinners. TECHNIQUE: The lower extremity deep venous system is examined utilizing real time linear array sonog jadon with graded compression, color doppler sonography, and spectral doppler. SIDE PERFORMED: Right FINDINGS: VESSELS IMAGED: Common Femoral Vein Deep Femoral Vein Greater Saphenous Vein * Femoral Vein Popliteal Vein Small Saphenous Vein * Proximal Calf Veins (* superficial vessels) Right Leg: No evidence of DVT, Color Doppler imaging shows patency of the vessels. Spectral waveform s are within normal limits. Right peroneal veins obscured. IMPRESSION: No ultrasound evidence for deep venous thrombosis. [facility], , 06/21/2024 4:13 PM
== END | disposition home or self-care (01) ==
LOC: RADUSWWP 15:44
PROVIDERS: ATTEND Family Medicine
DX: R22.41 Localized swelling, mass and lump, right lower limb (principal)

== ENCOUNTER → 2024-06-29 | Outpatient (CLI) | payer MEDICARE ==
--- NOTE | 2024-06-30 07:39 | MM ---
Reason for Exam: Screening (asymptomatic). Last mammogram was performed 1 year(s) and 3 month(s) ago. Patient History: Menarche at age 15. Patient has no children. Postmenopausal. 2012, Benign Excisional Biopsy on the left side. Sister had breast cancer, age 83. Mother had breast cancer. Risk Values: Marichuy 5 year model risk: 5.2%. NCI Lifetime model risk: 5.8%. Prior Study Comparison: 01/17/2021 Bilateral Screening Mammogram, [facility]. 01/20/2022 Bilateral MG 3D screening mammo w/cad, [facility]. 03/17/2023 Bilateral MG 3D screening mammo w/cad, [facility]. Tissue Density: There are scattered areas of fibroglandular density. Findings: Analyzed By CAD. Left breast biopsy clip. Right breast: There is no suspicious group of microcalcifications or new suspicious mass. Benign-appearing calcifications right breast. Left breast: There is no suspicious group of microcalcifications or new suspicious mass. Benign-appearing calcifications left breast. Overall Assessment: Benign, BI-RAD 2 Management: Screening Mammogram of both breasts in [address] [facility] will attempt to contact patient to return for supplemental views and ultrasound if indicated. Patient should continue monthly self-breast exams. A clinical breast exam by your physician is recommended on an annual basis. This exam should not preclude additional follow-up of suspicious palpable abnormalities. Note on Marichuy scores and lifetime risk: 1. A Marichuy score greater than 3% is considered moderate risk. If this is the case, consider specialist referral to assess eligibility for a risk reducing agent. 2. If overall lifetime risk for the development of breast cancer is 20% or higher, the patient may qualify for future screening with alternating mammogram and breast MRI. [facility], , 06/30/2024 7:35 AM. Electronically signed and approved by: Jose King DO
== END | disposition home or self-care (01) ==
LOC: RADMAMWWP 13:01
PROVIDERS: ATTEND Family Medicine
DX: Z12.31 Encounter for screening mammogram for malignant neoplasm of breast (principal); R92.323 Mammographic fibroglandular density, bilateral breasts; R92.1 Mammographic calcification found on diagnostic imaging of breast; Z78.0 Asymptomatic menopausal state; Z80.3 Family history of malignant neoplasm of breast
CPT/HCPCS: 77063; 77067